=== PATIENT | female | born 1980 | race Caucasian/White ===

== ENCOUNTER 2020-10-24 12:36 | Emergency (ER) | payer OTHER ==
--- OUTSIDE RECORDS SUMMARY | 2020-10-24 12:39 | XMS REPORT | Continuity of Care Document ---
:1980 Author Organization [facility] t Address [address] [place] [address] Care Team Providers Name Role Phone Radha Ireland Attending Clinician Doctor Unassigned, Name Attending Clinician Unavailable Problems This patient has no known problems. Allergies, Adverse Reactions, Alerts This patient has no known allergies or adverse reactions. Medications This patient has no known medications. Procedures This patient has no known procedures. 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
--- NOTE | 2020-10-24 14:26 | ER ---
Nurse's Notes [facility] Name: Lulu Barreto Age: 40 yrs Sex: Female : 1980 Arrival Date: 10/24/2020 Time: 12:40 Bed 27 Private MD: Diagnosis: Urinary tract infection, site not specified;Enlarged lymph nodes Presentation: 10/24 13:17 Chief complaint: Patient states: feels a knot on the inside of her right groin area iw that she noticed yesterday and she has a knot in her left breast but is due for a mammogram tomorrow. Coronavirus screen: At this time, the client does not indicate any symptoms associated with coronavirus-19. Coronavirus screen: fatigue. Ebola Screen: Patient negative for fever greater than or equal to 101.5 degrees Fahrenheit, and additional compatible Ebola Virus Disease symptoms Patient denies exposure to infectious person. Patient denies travel to an Ebola-affected area in the 21 days before illness onset. No symptoms or risks identified at this time. Initial Sepsis Screen: Does the patient meet any 2 criteria? No. Patient's initial sepsis screen is negative. Does the patient have a suspected source of infection? No. Patient's initial sepsis screen is negative. Risk Assessment: Do you want to hurt yourself or someone else? Patient reports no desire to harm self or others. Onset of symptoms was October 23, 2020. 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 - Social history:: Smoking status: Patient denies any tobacco usage or history of. Assessment: 12:56 Reassessment: pt not in lobby when called. iw 13:30 General: Appears in no apparent distress. comfortable, Behavior is calm, cooperative, jd3 appropriate for age, anxious. Pain: Complains of pain in right inguinal area Quality of pain is described as aching, tender. Neuro: Level of Consciousness is awake, alert, obeys commands, Oriented to person, place, time, situation. Cardiovascular: Capillary refill < 3 seconds Patient's skin is warm and dry. Respiratory: Airway is patent Respiratory effort is even, unlabored, Respiratory pattern is regular, symmetrical. GI: No signs and/or symptoms were reported involving the gastrointestinal system. : No signs and/or symptoms were reported regarding the genitourinary system. EENT: No signs and/or symptoms were reported regarding the EENT system. Derm: Skin is intact, Skin is dry, Skin is normal, Skin temperature is warm. Musculoskeletal: Circulation, motion, and sensation intact. Range of motion: intact in all extremities. Vital Signs: 13:17 BP 108 / 62; Pulse 94; Resp 16; Temp 97.9; Pulse Ox 100% on R/A; Weight 58.97 kg; iw Height 5 ft. 2 in. (157.48 cm); 13:17 Body Mass Index 23.78 (58.97 kg, 157.48 cm) ED Course: 12:40 Patient arrived in ED. ds1 12:57 Yeni Wilson, RN is Primary Nurse. aa5 12:58 Benito Sales PA is PHCP. [facility] 12:58 Artis Florence MD is Attending Physician. [facility] 12:58 Artis Florence MD is Attending Physician. [facility] 13:19 Triage completed. iw 13:20 Arm band placed on. iw Administered Medications: No medications were administered Outcome: 14:25 Discharge ordered by MD. [facility] 14:52 Patient left the ED. zb Signatures: Benito Sales PA PA jmm Sanford, Demi ds1 Comfort Bowman RN RN Yeni Wilson, SAMSON DAVIES aa5 Cesario Rivera RN RN jd3 Brown, Zipporah, RN RN zb
--- NOTE | 2020-10-24 14:26 | EDPHYS ---
Physician Documentation [facility] Name: Lulu Barreto Age: 40 yrs Sex: Female : 1980 Arrival Date: 10/24/2020 Time: 12:40 Bed 27 Private MD: ED Physician Artis Florence HPI: 10/24 13:31 This 40 yrs old Female presents to ER via Ambulatory with complaints of Side jmm Pain. 13:31 The patient presents with swelling. Onset: The symptoms/episode began/occurred today. jmm Modifying factors: The symptoms are alleviated by nothing, the symptoms are aggravated by nothing. Associated signs and symptoms: Pertinent negatives: fever, hematuria, urinary frequency, vaginal discharge, vomiting. This is a 40 year old female with no chronic medical conditions that presents to the ED with complaints of swelling to her groin beginning today. Denies abdominal pain, vomiting, diarrhea, vaginal discharge. Patient is concerned this may be a sign of cancer. . 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 - Social history:: Smoking status: Patient denies any tobacco usage or history of. ROS: 13:31 Constitutional: Negative for fever, chills, and weight loss, Cardiovascular: Negative jmm for chest pain, palpitations, and edema, Respiratory: Negative for shortness of breath, cough, wheezing, and pleuritic chest pain. 13:31 Allergy/Immunology: Positive for swelling. 13:31 All other systems are negative. Exam: 13:31 Constitutional: This is a well developed, well nourished patient who is awake, alert, jmm and in no acute distress. Head/Face: atraumatic. Eyes: EOMI, no conjunctival erythema appreciated ENT: Moist Mucus Membranes Neck: Trachea midline, Supple Chest/axilla: Normal chest wall appearance and motion. Cardiovascular: Regular rate and rhythm. No edema appreciated Respiratory: Normal respirations, no respiratory distress appreciated Abdomen/GI: Non distended, soft 13:31 Skin: General appearance color normal MS/ Extremity: Moves all extremities, no obvious deformities appreciated, no edema noted to the lower extremities Neuro: Awake and alert, normal gait Psych: Behavior is normal, Mood is normal, Patient is cooperative and pleasant 13:31 Abdomen/GI: abdomen is non tender to palpation, right groin lymph nodes palpated. Vital Signs: 13:17 BP 108 / 62; Pulse 94; Resp 16; Temp 97.9; Pulse Ox 100% on R/A; Weight 58.97 kg; iw Height 5 ft. 2 in. (157.48 cm); 13:17 Body Mass Index 23.78 (58.97 kg, 157.48 cm) iw MDM: 13:31 Patient medically screened. [facility] 13:31 Data reviewed: vital signs, nurses notes. Counseling: I had a detailed discussion with abhilash the patient and/or guardian regarding: the historical points, exam findings, and any diagnostic results supporting the discharge/admit diagnosis, the need for outpatient follow up, to return to the emergency department if symptoms worsen or persist or if there are any questions or concerns that arise at home. ED course: Patient will be getting a mammogram tomorrow. Patient is given strict return precautions. patient understood and agrees with the plan of care. UTI will be treated. Patient is otherwise given strict return precautions. Patient understood and agrees with the plan of care. . 10/24 14:08 Order name: Urine Dipstick--Ancillary (enter results) 10/24 14:08 Order name: Urine --Ancillary (enter results) 10/24 13:34 Order name: Urine Dipstick-Ancillary (obtain specimen); Complete Time: 14:08 [facility] 10/24 13:34 Order name: Urine Test (obtain specimen); Complete Time: 14:08 [facility] Administered Medications: No medications were administered Disposition: 15:15 Co-signature as Attending Physician, Artis Florence MD. rn Disposition: 10/24/20 14:25 Discharged to Home. Impression: Urinary tract infection, site not specified, Enlarged lymph nodes. - Condition is Stable. - Discharge Instructions: Urinary Tract Infection, Adult, Lymphadenopathy. - Prescriptions for Bactrim DS 800- 160 mg Oral Tablet - take 1 tablet by ORAL route every 12 hours for 10 days; 20 tablet. - Medication Reconciliation Form, Thank You Letter, Antibiotic Education, Prescription Opioid Use form. - Follow up: Private Physician; When: 2 - 3 days; Reason: Recheck today's complaints, Continuance of care, Re-evaluation by your physician. Signatures: Dispatcher [employer] EDBenito Russell PA PA jmm Williams, Irene, RN RN iw Nieto, Roman, MD MD rn Brown, Zipporah, RN RN zb Corrections: (The following items were deleted from the chart) 14:52 14:25 10/24/2020 14:25 Discharged to Home. Impression: Urinary tract infection, site zb not specified; Enlarged lymph nodes. Condition is Stable. Forms are Medication Reconciliation Form, Thank You Letter, Antibiotic Education, Prescription Opioid Use. Follow up: Private Physician; When: 2 - 3 days; Reason: Recheck today's complaints, Continuance of care, Re-evaluation by your physician. rashard
[2020-10-24 15:37] VITALS: BP 108/62; TEMP 97.9; O2SAT 100
[2020-10-24 15:40] LABS: Urine Blood TRACE (NEG); Urine Glucose NEGATIVE (NEG); Urine Protein NEGATIVE (NEG)
== END 2020-10-24 14:52 | disposition home or self-care (01) ==
LOC: ER 12:36
DX: N39.0 Urinary tract infection, site not specified (principal); Z88.0 Allergy status to penicillin
CPT/HCPCS: 81003; 81025; 99281

== ENCOUNTER 2021-02-19 20:35 | Emergency (ER) | payer OTHER ==
--- OUTSIDE RECORDS SUMMARY | 2021-02-19 20:39 | XMS REPORT | Continuity of Care Document ---
:1980 Author Organization [facility] t Address [address] [place] [address] Care Team Providers Name Role Phone Janett Thompson Attending Clinician Doctor Unassigned, Name Attending Clinician Unavailable Marly Bowman DO Attending Clinician Akinsisaranya DCP, C Attending Clinician Problems This patient has no known problems. Allergies, Adverse Reactions, Alerts This patient has no known allergies or adverse reactions. Medications This patient has no known medications. Procedures This patient has no known procedures. Encounters Start End Encounter Admission Attending Care Care Encounter Source Date/Time Date/Time Type Type Clinicians Facility Department ID 2021-01-24 2021-01-24 CYNTHIA Black [id number] 00:16:00 02:29:00 Lois Franklin [id number] [place] [id number] [place] [id number] 2021-01-24 2021-01-24 Orders Doctor WHITT [id number] 00:00:00 00:00:00 Only UnassignedMOISÉS [id number] [place] [id number] 2021-01-23 2021-01-23 Orders Doctor WHITT [id number] 00:00:00 00:00:00 Only Unassigned, MOISÉS [id number] [place] [facility] [id number] 2021-01-03 2021-01-03 Emergency [facility] [id number] 21:27:00 23:45:00 Dedra Franklin [id number] [place] [id number] [place] [id number] 2021-01-02 2021-01-02 Emergency [facility] [id number] 14:10:00 19:43:00 Lois Franklin [id number] [place] [id number] [place] [id number] 2021-01-02 2021-01-02 Orders Doctor PERI [id number] 00:00:00 00:00:00 Only Unassigned, MOISÉS [id number] [place] [facility] [id number] 2020-11-07 2020-11-07 Office [facility] [id number] 14:03:28 14:54:11 Visit 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
--- NOTE | 2021-02-19 23:58 | ER ---
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 Coronavirus screen: Client denies travel out of the [place] in the last 14 days. Ebola Screen: Patient negative for fever greater than or equal to 101.5 degrees Fahrenheit, and additional compatible Ebola Virus Disease symptoms Patient denies exposure to infectious person. Patient denies travel to an Ebola-affected area in the 21 days before illness onset. No symptoms or risks identified at this time. Initial Sepsis Screen: Does the patient meet any 2 criteria? No. Patient's initial sepsis screen is negative. Does the patient have a suspected source of infection? No. Patient's initial sepsis screen is negative. Risk Assessment: Do you want to hurt yourself or someone else? Patient reports no desire to harm self or others. Onset of symptoms was February 19, 2021. 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 - Social history:: Smoking status: Patient denies any tobacco usage or history of. Screenin/29 00:06 Abuse screen: Denies threats or abuse. Denies injuries from another. Nutritional em screening: No deficits noted. Tuberculosis screening: No symptoms or risk factors identified. Fall Risk None identified. Assessment: 00:04 General: Appears in no apparent distress. Pain: Complains of pain in left aspect of em posterior pharynx and right aspect of posterior pharynx. Neuro: No deficits noted. 00:05 Cardiovascular: No deficits noted. Respiratory: Airway is patent. GI: No signs and/or em symptoms were reported involving the gastrointestinal system. : No signs and/or symptoms were reported regarding the genitourinary system. EENT: Reports pain when swallowing. Derm: No deficits noted. Musculoskeletal: No deficits noted. Vital Signs: 02/19 20:57 BP 118 / 71; Pulse 111; Resp 16; Temp 98.2; Pulse Ox 99% on R/A; Weight 63.5 kg; Height em 5 ft. 2 in. (157.48 cm); 20:57 Body Mass Index 25.61 (63.50 kg, 157.48 cm) em ED Course: 20:38 Patient arrived in ED. cf2 20:59 Triage completed. em 20:59 Arm band placed on. em 21:04 Strep swab sent to lab. em 22:25 Alistair Reed RN is Primary Nurse. em 22:38 Pérez Olivera MD is Attending Physician. pkl 23:42 Todd Brown NP is PHCP. pm1 23:42 Pérez Olivera MD is Attending Physician. pm1 Administered Medications: 23:59 Drug: [place] (HYDROcodone-acetaminophen) 10 mg-325 mg 1 tabs Route: PO; em 02/20 00:07 Follow up: Response: No adverse reaction; Medication administered at discharge. em Outcome: 02/19 23:58 Discharge ordered by . pm1 02/20 00:08 Patient left the ED. 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
--- NOTE | 2021-02-19 23:59 | EDPHYS ---
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 - Social history:: Smoking status: Patient denies any tobacco usage or history of. Vital Signs: 20:57 BP 118 / 71; Pulse 111; Resp 16; Temp 98.2; Pulse Ox 99% on R/A; Weight 63.5 kg; Height em 5 ft. 2 in. (157.48 cm); 20:57 Body Mass Index 25.61 (63.50 kg, 157.48 cm) em MDM: 23:57 Patient medically screened. pm1 23:57 Data reviewed: vital signs. Data interpreted: Pulse oximetry: on room air is 99 %. pm1 Interpretation: normal. Counseling: I had a detailed discussion with the patient and/or guardian regarding: the historical points, exam findings, and any diagnostic results supporting the discharge/admit diagnosis, the need for outpatient follow up, for definitive care, a dentist, to return to the emergency department if symptoms worsen or persist or if there are any questions or concerns that arise at home. 02/19 21:00 Order name: Strep; Complete Time: 23:42 em 02/19 21:27 Order name: Throat Culture EDMS Administered Medications: 23:59 Drug: [place] (HYDROcodone-acetaminophen) 10 mg-325 mg 1 tabs Route: PO; em 02/20 00:07 Follow up: Response: No adverse reaction; Medication administered at discharge. em Disposition: 02/19/21 23:58 Discharged to Home. Impression: Dental caries, Acute pharyngitis. - Condition is Stable. - Discharge Instructions: Dental Caries, Adult, Pharyngitis. - Prescriptions for Clindamycin HCl 300 mg Oral Capsule - take 1 capsule by ORAL route every 6 hours for 10 days; 40 capsule. Diclofenac Sodium 75 mg Oral Tablet, Delayed Release (E.C.) - take 1 tablet by ORAL route 2 times per day As needed; 30 tablet. - Medication Reconciliation Form, Thank You Letter, Antibiotic Education, Prescription Opioid Use form. - Follow up: Emergency Department; When: As needed; Reason: Worsening of condition. Follow up: Private Physician; When: 2 - 3 days; Reason: Recheck today's complaints, Continuance of care, Re-evaluation by your physician. - Problem is new. - Symptoms have improved. Addendum: 08:14 Co-signature as Attending Physician, Pérez Olivera MD. p kl 14:13 Addendum: HPI: This 40 year old female presents to the ER with complaints of sore p m1 throat and dental pain. The patient presents with pain to lower molars that is acute, sore throat. Onset: 2 days ago. Associated signs and symptoms: pertinet positives: fever. pertinet negatives: difficulty swallowing or eating. Modifying factors: alleviated by over the counter medications. Severity of symptoms: the symptoms are improved with Tylenol. The patient has experience prior symptoms. Patient with pain and dental caries to lower molars for many months. 14:18 Addendum: ROS: Constitutional: positive for fever, negative for poor po intake. ENT: p m1 positive for sore throat. negative for earache. Cardiovascular: negative for chest pain, palpitations, and edema. Respiratory: Negative for shortness of breath, cough. Back: Negative for injury and pain, Skin: negative for injury, rash, and discoloration. Neuro: negative for headache, weakness, numbness, and tingling. Abdomen/GI: negative for abdominal pain and constipation. Negative for nausea, vomiting, and diarrhea. All other systems are negative. 14:19 Addendum: Exam: Constitutional: This is a well developed, well nourished patient who is p m1 awake, alert, and in no acute distress. Head/Face: Normocephalic, atraumatic. Neck: Supple, FROM without pain. Positive for right anterior cervical chain lymphadenopathy. ENT: Negative for trismus, gum swelling. Positive for moderate dental caries to 2nd and 3rd lower molars bilaterally. Cardiovascular: RRR, no pulse deficits. Respiratory: No respiratory distress, shortness of breath. CTA bilaterally. Musculoskeletal/extremity: extremities: FROM, neurovascular status intact. Skin: Appearance: warm, ric intact, color wnls. Neuro: exam negative for acute changes. Orientation is normal, Motor; moves all fours. Signatures: Dispatcher [employer] Pérez Berumen MD MD pkl Munoz, Edgar, RN RN Todd Shepherd, FITTINGS TIGHTENER FITTINGS TIGHTENER pm1 Corrections: (The following items were deleted from the chart) 00:08 02/19 23:58 02/19/2021 23:58 Discharged to Home. Impression: Dental caries; Acute em pharyngitis. Condition is Stable. Forms are Medication Reconciliation Form, Thank You Letter, Antibiotic Education, Prescription Opioid Use. Follow up: Emergency Department; When: As needed; Reason: Worsening of condition. Follow up: Private Physician; When: 2 - 3 days; Reason: Recheck today's complaints, Continuance of care, Re-evaluation by your physician. Problem is new. Symptoms have improved. pm1
[2021-02-20] MEDS ORDERED: HYDROCODONE/APAP 10/325 TAB ONE (00:20)
[2021-02-20 00:26] VITALS: BP 118/71; TEMP 98.2; O2SAT 99
== END 2021-02-20 00:08 | disposition home or self-care (01) ==
LOC: ER 20:35
DX: K02.9 Dental caries, unspecified (principal); Z88.0 Allergy status to penicillin
CPT/HCPCS: 87070; 87081; 99283

== ENCOUNTER 2022-02-06 22:14 | Emergency (ER) | payer OTHER ==
--- OUTSIDE RECORDS SUMMARY | 2022-02-06 22:20 | XMS REPORT | Continuity of Care Document ---
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 [facility] Body weight 2021-05-03 18:23:00 64.184 kg [facility] BMI 2021-05-03 18:23:00 25.07 kg/m2 [facility] Systolic blood 2021-03-26 04:05:00 133 mm[Hg] Univer sity of pressure [facility] Diastolic blood 2021-03-26 04:05:00 80 mm[Hg] Unive rsity of pressure [facility] Heart rate 2021-03-26 04:05:00 101 /min [facility] Body temperature 2021-03-26 04:05:00 37.28 Chanel Univ ersity of [facility] Respiratory rate 2021-03-26 04:05:00 20 /min Univ ersity of [facility] Body weight 2021-03-26 04:05:00 61.236 kg [facility] BMI 2021-03-26 04:05:00 23.91 kg/m2 [facility] Oxygen saturation in 2021-03-26 04:05:00 100 /min University of Arterial blood by [facility] Pulse oximetry Branch Systolic blood 2021-01-24 07:00:00 105 mm[Hg] Univer sity of pressure [facility] Diastolic blood 2021-01-24 07:00:00 60 mm[Hg] Unive rsity of pressure [facility] Heart rate 2021-01-24 07:00:00 98 /min [facility] Body temperature 2021-01-24 07:00:00 37.44 Chanel Univ ers[facility] Respiratory rate 2021-01-24 07:00:00 14 /min Univ ersity of [facility] Oxygen saturation in 2021-01-24 07:00:00 97 /min University of Arterial blood by [place] [facility] Pulse oximetry Branch Body height 2021-01-24 05:11:00 160 cm [facility] Body weight 2021-01-24 05:11:00 57.607 kg [facility] BMI 2021-01-24 05:11:00 22.50 kg/m2 [facility] Systolic blood 2021-01-24 07:00:00 105 mm[Hg] Univer sity of pressure [facility] Diastolic blood 2021-01-24 07:00:00 60 mm[Hg] Unive rsity of pressure [facility] Heart rate 2021-01-24 07:00:00 98 /min [facility] Body temperature 2021-01-24 07:00:00 37.44 Chanel Univ ersity of [facility] Respiratory rate 2021-01-24 07:00:00 14 /min Univ ersity of [facility] Oxygen saturation in 2021-01-24 07:00:00 97 /min University of Arterial blood by [place] [facility] marcus Pulse oximetry Branch Body height 2021-01-24 05:11:00 160 cm [facility] Body weight 2021-01-24 05:11:00 57.607 kg [facility] BMI 2021-01-24 05:11:00 22.50 kg/m2 [facility] Systolic blood 2021-01-04 04:38:00 105 mm[Hg] Univer sity of pressure [facility] Diastolic blood 2021-01-04 04:38:00 90 mm[Hg] Unive rsity of pressure [facility] Heart rate 2021-01-04 04:38:00 88 /min [facility] Respiratory rate 2021-01-04 04:38:00 25 /min Univ ersity of [facility] Oxygen saturation in 2021-01-04 04:38:00 100 /min University of Arterial blood by [place] [facility] marcus P[facility] oxim[facility] Branch Body temperature 2021-01-04 02:30:00 35.5 Chanel Univ ersity of [facility] Body weight 2021-01-04 02:25:00 58.968 kg Universi [facility] BMI 2021-01-04 02:25:00 23.78 kg/m2 [facility] Systolic blood 2021-01-04 04:38:00 105 mm[Hg] Univer sity of pressure [facility] Diastolic blood 2021-01-04 04:38:00 90 mm[Hg] Unive rsity of pressure [facility] Heart rate 2021-01-04 04:38:00 88 /min [facility]i [facility] Respiratory rate 2021-01-04 04:38:00 25 /min Univ ersity of [facility] Oxygen saturation in 2021-01-04 04:38:00 100 /min University of Arterial blood by [facility] Pulse oximetry Branch Body temperature 2021-01-04 02:30:00 35.5 Chanel Univ ersity of [facility] Body weight 2021-01-04 02:25:00 58.968 kg [facility]i [facility] BMI 2021-01-04 02:25:00 23.78 kg/m2 [facility] Systolic blood 2021-01-03 00:40:08 116 mm[Hg] Univer sity of pressure [facility] Diastolic blood 2021-01-03 00:40:08 87 mm[Hg] Unive rsity of pressure [facility] Heart rate 2021-01-03 00:40:08 95 /min [facility] Respiratory rate 2021-01-03 00:40:08 18 /min Univ ersity [facility] Oxygen saturation in 2021-01-03 00:40:08 97 /min University of Arterial blood by [facility] Pulse oximetry Branch Body temperature 2021-01-02 19:08:00 37.06 Chanel Univ ersity of [facility] Body weight 2021-01-02 19:08:00 58.968 kg Universi ty [facility] BMI 2021-01-02 19:08:00 23.78 kg/m2 [facility] Systolic blood 2021-01-03 00:40:08 116 mm[Hg] Univer sity of pressure [facility] Diastolic blood 2021-01-03 00:40:08 87 mm[Hg] Unive rsity of pressure [facility] Heart rate 2021-01-03 00:40:08 95 /min Universi ty of [facility] Respiratory rate 2021-01-03 00:40:08 18 /min Univ ersity of [facility] Oxygen saturation in 2021-01-03 00:40:08 97 /min University of Arterial blood by [facility] Pulse oximetry Branch Body temperature 2021-01-02 19:08:00 37.06 Chanel Univ ersity of [facility] Body weight 2021-01-02 19:08:00 58.968 kg Universi ty [facility] BMI 2021-01-02 19:08:00 23.78 kg/m2 [facility] Systolic blood 2020-11-07 19:20:00 113 mm[Hg] Univer sity of pressure [facility] Diastolic blood 2020-11-07 19:20:00 78 mm[Hg] Unive rsity of pressure [facility] Heart rate 2020-11-07 19:20:00 97 /min [facility] [place] [facility] [place] Body temperature 2020-11-07 19:20:00 36.78 Chanel Univ ersity of [facility] Respiratory rate 2020-11-07 19:20:00 16 /min Univ ersity of [facility] Body height 2020-11-07 19:20:00 157.5 cm Universi [facility] Body weight 2020-11-07 19:20:00 60.499 kg [facility] BMI 2020-11-07 19:20:00 24.39 kg/m2 [facility] Systolic blood 2020-11-07 19:20:00 113 mm[Hg] Univer sity of pressure [facility] Diastolic blood 2020-11-07 19:20:00 78 mm[Hg] Unive rsity of pressure [facility] Heart rate 2020-11-07 19:20:00 97 /min [facility]i [facility] Body temperature 2020-11-07 19:20:00 36.78 Chanel Univ ersity of [facility] Respiratory rate 2020-11-07 19:20:00 16 /min Univ ersity of [facility] Body height 2020-11-07 19:20:00 157.5 cm [facility]i [facility] Body weight 2020-11-07 19:20:00 60.499 kg [facility] BMI 2020-11-07 19:20:00 24.39 kg/m2 [facility] Systolic blood 2020-10-26 20:36:00 107 mm[Hg] Univer sity of pressure [facility] Diastolic blood 2020-10-26 20:36:00 78 mm[Hg] Unive rsity of pressure [facility] Heart rate 2020-10-26 20:36:00 94 /min Universi ty [facility] Body temperature 2020-10-26 20:36:00 36.61 Chanel Univ ersity of [facility] Respiratory rate 2020-10-26 20:36:00 16 /min Univ ersity of [facility] Body height 2020-10-26 20:36:00 157.5 cm [facility]i [facility] Body weight 2020-10-26 20:36:00 59.932 kg [facility]i [facility] BMI 2020-10-26 20:36:00 24.17 kg/m2 [facility] Systolic blood 2020-10-20 14:33:00 101 mm[Hg] Univer sity of pressure [facility] Diastolic blood 2020-10-20 14:33:00 73 mm[Hg] Unive rsity of pressure [facility] Heart rate 2020-10-20 14:33:00 97 /min [facility]i ty [facility] Body temperature 2020-10-20 14:33:00 36.78 Chanel Univ ersity of [facility] Respiratory rate 2020-10-20 14:33:00 16 /min Univ ersity of [facility] Body height 2020-10-20 14:33:00 157.5 cm [facility] Body weight 2020-10-20 14:33:00 59.109 kg [facility] BMI 2020-10-20 14:33:00 23.83 kg/m2 Universi ty [facility] Systolic blood 2019-11-11 15:10:00 100 mm[Hg] Univer sity of pressure [facility] Diastolic blood 2019-11-11 15:10:00 68 mm[Hg] Unive rsity of pressure [facility] Heart rate 2019-11-11 15:10:00 87 /min Universi [facility] Body temperature 2019-11-11 15:10:00 37.11 Chanel [facility] Body height 2019-11-11 15:10:00 157.5 cm Universi [facility] Body weight 2019-11-11 15:10:00 63.05 kg [facility] BMI 2019-11-11 15:10:00 25.42 kg/m2 [facility] Oxygen saturation in 2019-11-11 15:10:00 99 /min [facility] blood by [facility] Pulse oximetry Branch Procedures Procedure Date / Time Performing Clinician Source Performed URINALYSIS 2021-09-27 18:59:00 Angélica Pelayo [facility] RAPID STREP SCREEN FOR 2021-09-27 18:04:00 Angélica Pelayo [facility] GROUP A [facility] RAPID INFLUENZA A/B 2021-09-27 18:04:00 Angélica Pelayo [facility] COVID-19 (ID NOW RAPID 2021-09-27 18:04:00 Angélica Pelayo [facility] TESTING) [facility] NOTICE OF PRIVACY 2021-09-27 17:11:49 Doctor Unassigned, [facility] PRACTICES [place] [facility] CONSENT/REFUSAL FOR 2021-09-27 17:10:54 Doctor Unassigned, [facility] DIAGNOSIS AND TREATMENT [place] [facility] [place] GLYCOSYLATED HEMOGLOBIN 2021-05-03 19:37:00 Terri Mendez [facility] (A1C) [facility] HIV 1/2 AG-AB WITH REFLEX 2021-05-03 19:37:00 Terri Mendez [facility] GALV ONLY - SYPHILIS 2021-05-03 19:37:00 [facility] CONSENT/REFUSAL FOR 2021-03-26 03:55:57 Doctor Endy [facility] DIAGNOSIS AND TREATMENT [place] [facility] [place] RAPID STREP SCREEN FOR 2021-01-24 06:19:00 Lois Centeno [facility] GROUP A Medical Branch POCT TEST 2021-01-24 06:19:00 Lois Centeno [facility] Medical Branch COVID-19 (ID NOW RAPID 2021-01-24 06:19:00 Lois Centeno [facility] TESTING) Medical Branch URINALYSIS 2021-01-24 06:16:00 Lois Centeno [facility] COMP. METABOLIC PANEL 2021-01-24 06:15:00 Lois Centeno [facility] ([id number]) Medical Branch CBC WITH DIFF 2021-01-24 06:15:00 Lois Centeno [facility] EMERGENCY SERVICES 2021-01-24 05:01:00 Doctor Endy, [facility] AGREEMENTS AND [place] [facility] [place] AUTHORIZATIONS NOTICE OF PRIVACY 2021-01-24 04:58:49 Doctor Endy, [facility] PRACTICES [place] [facility] [place] CONSENT/REFUSAL FOR 2021-01-24 04:58:30 Doctor Endy [facility] DIAGNOSIS AND TREATMENT [place] [facility] COVID-19 (ID NOW RAPID 2021-01-04 03:00:00 Dedra Felix Un [facility] TESTING) Medical Branch URINALYSIS 2021-01-04 02:48:00 Dedra Felix [facility] [place] LIPASE 2021-01-04 02:47:00 Dedra Felix [facility] COMP. METABOLIC PANEL 2021-01-04 02:47:00 Dedra Felix [facility] ([id number]) Medical Branch CBC WITH DIFF 2021-01-04 02:47:00 Dedra Felix [facility] POCT TEST 2021-01-04 02:46:00 Dedra Felix [facility] [place] COMP. METABOLIC PANEL 2021-01-02 22:23:00 Lois Centeno [facility] ([id number]) Medical Branch EBV-MONONUCLEOSIS SCREEN 2021-01-02 22:23:[address] [facility] CBC WITH DIFF 2021-01-02 21:27:00 Lois Centeno [facility] POCT GLUCOSE (AUTOMATED) 2021-01-02 20:10:[address] [facility] RAPID STREP SCREEN FOR 2021-01-02 20:06:00 Lois Centeno [facility] GROUP A Medical Branch CONSENT/REFUSAL FOR 2021-01-02 18:51:16 Doctor Unaeleuterio, [facility] DIAGNOSIS AND TREATMENT [place] [facility] [place] CONSENT/REFUSAL FOR 2020-10-26 20:26:06 Doctor Unaeleuterio, [facility] DIAGNOSIS AND TREATMENT [place] [facility] [place] ASSIGNMENT OF BENEFITS 2020-10-26 20:25:54 Doctor Endy, [facility] Name [facility] [place] AUTHORIZATION TO RELEASE 2020-10-20 06:01:00 Doctor Endy, [facility] PHI TO [facility] Name [facility] POCT GRP A STREP 2019-11-11 16:15:00 Any Henriquez [facility] (MOLECULAR) [facility] POCT FLU A AND B 2019-11-11 15:37:00 Any Henriquez [facility] (MOLECULAR) [facility] Encounters Start End Encounter Admission Attending Care Care Encounter Source Date/Time Date/Time Type Type Clinicians Facility Department ID 2021-06-25 Emergency [facility] [id number] Univers 12:18:21 ity [facility] 2021-06-24 Emergency [facility] [id number] Univers 22:33:05 ity [facility] 2021-06-24 Emergency [facility] [id number] Univers 18:47:40 ity [facility] 2021-06-24 Emergency [facility] [id number] [facility] 2021-12-21 Outpatient R [facility] [id number] Univers 20:20:00 20:20:00 [id number] ity [facility] 2021-12-21 2021-12-21 Outpatient R [facility] [id number] Univers 20:20:00 20:20:00 ity of [facility] 2021-12-20 2021-12-20 Outpatient [facility] [id number] Univers 18:40:00 18:40:00 [id number] ity of [facility] 2021-10-23 2021-10-23 Outpatient R ANDREA, [facility] [id number] Univers 13:15:00 13:15:00 TERRI [id number] ity o f [facility] 2021-09-27 2021-09-27 Emergency X [facility] ERT [id number] Univers 11:15:00 15:02:00 ANGÉLICA ity [facility] 2021-09-27 2021-09-27 Emergency [facility] [id number] Univers 11:15:00 15:02:00 Angélica Hernandez MARYKNOLL [id number] ity of [place] [id number] [facility] [id number] [facility] 084 [place] 2021-09-27 2021-09-27 Orders Doctor PERI [id number] Univers 00:00:00 00:00:00 Only Unassigned, MOISÉS [id number] ity of [place] [facility] [id number] Elio as [phone] [facility] 009 [place] 2021-05-03 2021-05-03 Office [facility] [id number] Univers 13:05:08 14:38:12 Visit Terri Garcia BACK WEDGER [id number] ity of [facility] [id number] Elio as MATERNAL [id number] Med ical & CHILD [address] [place] [address] 2021-05-03 2021-05-03 Outpatient R ANDREA, [facility] [id number] Univers 13:15:00 13:15:00 TERRI [id number] ity o f [facility] 2021-05-03 2021-05-03 [facility] [id number] Univers 13:15:00 13:15:00 TERRI ity o f [facility] 2021-04-03 2021-04-03 Telephone Amber Parismanuel [id number] Univers 00:00:00 00:00:00 , Kitty Renee [id number] ity of [id number] [id number] [address] 2021-03-25 2021-03-25 Emergency [facility] [id number] [facility] 23:08:00 23:46:00 Angélica [place] [id number] ity of [id number] [place] [id number] [address] 2021-03-08 2021-03-08 Telephone [facility] [id number] Univers 00:00:00 00:00:00 Terri Garcia BACK WEDGER [id number] ity of [facility] [id number] Elio as MATERNAL [id number] [facility] ical & CHILD [address] [place] [address] 2021-03-02 2021-03-02 Telephone [facility] [id number] Univers 00:00:00 00:00:00 Inez Manuel BACK WEDGER [id number] it y of [facility] [id number] Elio as MATERNAL [id number] [facility] & CHILD [address] [place] [address] 2021-02-07 2021-02-07 Outpatient R ANDREA, [facility] [id number] Univers 13:15:00 13:15:00 TERRI [id number] ity o f [facility] 2021-02-07 2021-02-07 Outpatient R AKINIRMA, [facility] [id number] Univers 13:15:00 13:15:00 TERRI ity o f [facility] 2021-01-24 2021-01-24 Emergency [facility] [id number] 00:16:00 02:29:00 Lois [place] [id number] [place] [id number] [place] [id number] [id number] 2021-01-24 2021-01-24 Emergency CYNTHIA Centeno [id number] Univers 00:16:00 02:29:00 Lois Rowland Noemi [id number] i ty of [place] [id number] [facility] [phone] [place] 077984 Branch 2021-01-24 2021-01-24 Orders Doctor WHITT 1.2.840.114 [id number] 00:00:00 00:00:00 Only Unassigned, MOISÉS [id number] [place] [facility] [id number] 2021-01-24 2021-01-24 Orders Doctor WHITT 1.2.840.114 [id number] Univers 00:00:00 00:00:00 Only Unassigned, MOISÉS [id number] ity of [place] [facility] [id number] Elio as [id number] [place] [address] Branch 2021-01-23 2021-01-23 Orders Doctor WHITT 1.2.840.114 [id number] Univers 00:00:00 00:00:00 Only Unassigned, MOISÉS [id number] ity of [place] [facility] [id number] Elio as [id number] [address] 2021-01-23 2021-01-23 Orders Doctor WHITT 1.2.840.114 [id number] 00:00:00 00:00:00 Only Unassigned, MOISÉS [id number] [place] [facility] [id number] [id number] [id number] 2021-01-03 2021-01-03 Emergency Elvira ALANCA 1.2.840.114 [id number] [facility] 21:27:00 23:45:00 Dedra Luke Noemi [id number] ity of [place] [id number] [facility] [id number] [place] 077984 Branch 2021-01-03 2021-01-03 Emergency [facility] 1.2.840.114 [id number] 21:27:00 23:45:00 Dedra Luke Noemi [id number] [place] [id number] [place] [id number] [facility] 2021-01-02 2021-01-02 Emergency [facility] [id number] Univers 14:10:00 19:43:00 Lois Rowland Noemi [id number] i ty of [id number] [place] [id number] [facility] 084 [place] 2021-01-02 2021-01-02 Emergency [facility] [id number] 14:10:00 19:43:00 Lois Rowland Noemi [id number] [place] [id number] [place] [id number] [facility] 2021-01-02 2021-01-02 Orders Doctor PERI 1.2.840.114 [id number] Univers 00:00:00 00:00:00 Only Unassigned, MOISÉS [id number] ity of [place] [facility] [id number] Elio as [phone] [facility] 009 Branch 2021-01-02 2021-01-02 Orders Doctor PERI 1.2.840.114 [id number] 00:00:00 00:00:00 Only Unassigned, MOISÉS [id number] [place] [facility] [id number] 2020-11-17 2020-11-17 Outpatient R AKINSIPE, [facility] [id number] Univers 14:30:00 14:30:00 TERRI [id number] clarice perera [facility] 2020-11-17 2020-11-17 Outpatient R AKINSIPE, [facility] [id number] Univers 14:30:00 14:30:00 TERRI perera [facility] 2020-11-07 2020-11-07 [facility] [id number] Univers 14:03:28 14:54:11 Visit Terri Garcia BACK WEDGER [id number] ity of REGIONAL [id number] Elio as MATERNAL [id number] Med [facility] & CHILD [address] [place] [address] 2020-11-07 2020-11-07 Office [facility] [id number] 14:03:28 14:54:11 Visit Terri Garcia BACK [place] [id number] REGIONAL [id number] MATERNAL [id number] & CHILD [address] [place] [address] 2020-11-07 2020-11-07 Outpatient R ANDREA, [facility] [id number] Univers 14:00:00 14:00:00 TERRI [id number] ity o [facility] 2020-11-07 2020-11-07 Out[facility] [id number] Univers 14:00:00 14:00:00 TERRI ity o [facility] 2020-11-07 2020-11-07 [facility] [id number] Univers 14:00:00 14:00:00 TERRI ity o [facility] 2020-11-02 2020-11-02 Outpatient R [facility] [id number] Univers 10:00:00 10:00:00 [id number] [facility] 2020-11-02 2020-11-02 Outpatient R [facility] [id number] Univers 10:00:00 10:00:00 [facility] 2020-11-02 2020-11-02 Outpatient R DESTINEY, [facility] [id number] Univers 10:00:00 10:00:00 VINCENZOHARDIKA ity o [facility] 2020-10-27 2020-10-27 Telephone [facility] 1.2.840.114 [id number] Univers 00:00:00 00:00:00 Inez Langston [place]EDGER [id number] it y of REGIONAL [id number] Elio as MATERNAL [id number] Med [facility] & CHILD [address] [place] [address] 2020-10-26 2020-10-26 Outpatient R ELVIRA, [facility] [id number] Univers 15:30:00 15:30:00 INEZ oneil [facility] 2020-10-26 2020-10-26 Outpatient Darby FELIX [facility] [id number] Univers 15:30:00 15:30:00 INEZ oneil [facility] 2020-10-26 2020-10-26 Office [facility] [id number] Univers 14:29:31 14:57:36 Visit Inez Manuel BACK WEDGER 350.1.13.10 it y of REGIONAL 4.2.7.2.686 Elio as MATERNAL [phone] Med ical & CHILD [address] [place] [address] 2020-10-26 2020-10-26 Outpatient Darby FELIX [facility] [id number] 0P-20 Univers 08:00:00 08:00:00 INEZ [id number] [facility] 2020-10-26 2020-10-26 Orders Doctor PERI 1.2.840.114 [id number] Univers 00:00:00 00:00:00 Only Unassigned, MOISÉS 350.1.13.10 ity of [place] [facility] 4.2.7.2.686 Elio as [phone] [address] 2020-10-25 2020-10-25 [facility] 1.2.840.114 [id number] Univers 06:30:53 23:59:00 Encounter Terri Garcia SPECIALTY 350.1.13.10 ity [place] [phone] Fl [address] 2020-10-25 2020-10-25 Outpatient R [facility] [id number] Univers 00:00:00 23:59:00 TERRI oneil o [facility] 2020-10-25 2020-10-25 Outpatient R [facility] [id number] 0P-20 Univers 14:30:00 14:30:00 TERRI [id number] anastaciay o f [facility] 2020-10-25 2020-10-25 Outpatient R [facility] [id number] Univers 00:00:00 00:00:00 TERRI ity o f [facility] 2020-10-20 2020-10-20 Outpatient R ANDREA, [facility] [id number] 0P-20 Univers 14:30:00 14:30:00 TERRI [id number] ity o f [facility] 2020-10-20 2020-10-20 Outpatient R ANDREA, [facility] [id number] Univers 14:30:00 14:30:00 TERRI galavizy o f [facility] 2020-10-20 2020-10-20 Office [facility] [id number] Univers 08:18:28 09:27:15 Visit Terri Garcia BACK WEDGER 350.1.13.10 ity of REGIONAL 4.2.7.2.686 [place]io as MATERNAL [phone] [facility] ical & CHILD [address] [place] [address] 2020-10-20 2020-10-20 Orders Doctor PERI 1.2.840.114 [id number] Univers 00:00:00 00:00:00 Only Unassigned, MOISÉS 350.1.13.10 ity of [place] [facility] 4.2.7.2.686 Elio as [phone] [address] 2020-10-16 2020-10-16 Telephone Pcp, [facility] [id number] Univers 00:00:00 00:00:00 Patient BACK WEDGER 350.1.13.10 it y of Does Not [facility] [place].2.[place] A MATERNAL [phone] [facility] ical & CHILD [address] [place] [address] 2019-11-16 2019-11-16 Telephone Martinez, [facility] [id number] Univers 00:00:00 00:00:00 Any A Health 350.1.13.10 i ty of [place] 4.2.7.2.686 Elio as Professio [phone] Fl dical [facility] [address] 2019-11-16 2019-11-16 Telephone Pob1, Acute [facility] 1.2.840.114 [id number] Univers 00:00:00 00:00:00 [facility] 350.1.13.10 ity of [place] 4.2.7.2.686 Elio as Professio [phone] Fl dical nal [address] 2019-11-11 2019-11-11 Office Pob1, Acute Care [facility] 1. 2.840.114 [id number] Univers 09:53:53 11:56:02 Visit Any Henriquez [facility] 350.1.13.10 ity of [place] 4.2.7.2.686 Elio as Professio [phone] [facility] [address] [facility] One 2019-11-11 2019-11-11 Outpatient R [facility] [id number] -[id number] Univers 09:20:00 09:20:00 [id number] [facility] 2019-11-11 2019-11-11 Outpatient R [facility] [id number] Univers 09:20:00 09:20:00 [facility] 2019-10-18 2019-10-18 Outpatient R ADUM, [facility] [id number] -[id number] Univers 14:00:00 14:00:00 LAURA [id number] [facility] 2019-10-18 2019-10-18 Outpatient R ADUM, [facility] [id number] Univers 14:00:00 14:00:00 [facility] Results Test Description Test Time Test Comments Results Result Comments Source GALV ONLY - SYPHILIS IGG/IGM 2021-05-04 15:11:39 Test Item Value Reference Range Interpretation Comme nts Syphilis IgG/IgM (test code = Non-reactive Non-reactive 52970-8) JADEN (test code = JADEN) Non-reactive - No serologic evidence of T. pallidum infection. Cannot exclude incubating or early syphilis. Submit a second specimen in 2-4 weeks if syphilis is clinically suspected. Equivocal - Further testing to follow. Reactive - Further testing to follow. Lab Interpretation (test code = Normal 37728-4) [facility] [place] [id number] 15:11:39 Test Item Value Reference Range Interpretation Comments Syphilis IgG/IgM (test Non-reactive Non-reactive code = 33190-2) JADEN (test code = JADEN) Non-reactive - No serologic evidence of T. pallidum infection. Cannot exclude incubating or early syphilis. Submit a second specimen in 2-4 weeks if syphilis is clinically suspected. Equivocal - Further testing to follow. Reactive - Further testing to follow. Lab Interpretation (test Normal code = 10101-8) [facility] [place] [id number] 15:11:39 Test Item Value Reference Range Interpretation Comments Syphilis IgG/IgM (test Non-reactive Non-reactive code = 24462-3) JAEDN (test code = JADEN) Non-reactive - No serologic evidence of T. pallidum infection. Cannot exclude incubating or early syphilis. Submit a second specimen in 2-4 weeks if syphilis is clinically suspected. Equivocal - Further testing to follow. Reactive - Further testing to follow. Lab Interpretation (test Normal code = 25023-5) [facility] HEMOGLOBIN (A1C)2021-05-04 04:51:59 Test Item Value Reference Range Interpretation Comments HGB A1C (test code = 4.8 % 4.0-5.7 4548-4) JADEN (test code = JADEN) Reference RangesNormal: <5.7%Prediabetes: 5.7 - 6.4%Diabetes: > 6.5% Lab Interpretation (test Normal code = 15453-4) [facility] (A1C)2021-05-04 04:51:59 Test Item Value Reference Range Interpretation Comments HGB A1C (test code = 4.8 % 4.0-5.7 4548-4) JADEN (test code = JADEN) Reference RangesNormal: <5.7%Prediabetes: 5.7 - 6.4%Diabetes: > 6.5% Lab Interpretation (test Normal code = 04119-3) [facility] (A1C)2021-05-04 04:51:59 Test Item Value Reference Range Interpretation Comments HGB A1C (test code = 4.8 % 4.0-5.7 4548-4) JADEN (test code = JADEN) Reference RangesNormal: <5.7%Prediabetes: 5.7 - 6.4%Diabetes: > 6.5% Lab Interpretation (test Normal code = 76752-3) [facility] 1/2 AG-AB WITH [id number] 04:25:40 Test Item Value Reference Range Interpretation Comments HIV Negative Negative Semi-quantitative (test code = 43948-7) JADEN (test code = Non-reactive for HIV-1 JADEN) antigen and HIV-1/HIV-2 antibodies. ?No laboratory evidence of HIV infection. ?Repeat in 2-4 weeks if acute HIV infection is suspected. [facility] 1/2 AG-AB WITH [id number] 04:25:40 Test Item Value Reference Range Interpretation Comments HIV Negative Negative Semi-quantitative (test code = 60634-1) JADEN (test code = Non-reactive for HIV-1 JADEN) antigen and HIV-1/HIV-2 antibodies. ?No laboratory evidence of HIV infection. ?Repeat in 2-4 weeks if acute HIV infection is suspected. [facility] 1/2 AG-AB WITH [id number] 04:25:40 Test Item Value Reference Range Interpretation Comments HIV Negative Negative Semi-quantitative (test code = 45652-6) JADEN (test code = Non-reactive for HIV-1 JADEN) antigen and HIV-1/HIV-2 antibodies. ?No laboratory evidence of HIV infection. ?Repeat in 2-4 weeks if acute HIV infection is suspected. [facility] [id number] 06:47:15 Test Item Value Reference Range Interpretation Comments Streptococcus pyogenes (group A) Negative Negative antigen (test code = 38761-8) Lab Interpretation (test code = Normal 83627-8) [facility]2021-06-02 06:45:34 Test Item Value Reference Range Interpretation Comments APPEARANCE (test code = Hazy Clear A 9393212989) COLOR (test code = Yellow Yellow 3694519221) PH (test code = 4.8-8.0 2430396276) SP GRAVITY (test code = 1.003-1.030 6082343979) GLU U QUAL (test code = Normal Normal 7411805463) BLOOD (test code = Negative Negative 6812326407) KETONES (test code = Negative Negative 7465480345) PROTEIN (test code = Negative Negative 2887-8) UROBILIN (test code = Normal Normal 2713288550) BILIRUBIN (test code = Negative Negative 5187004224) NITRITE (test code = Negative Negative 8167055688) LEUK RHODA (test code = 75/uL Negative A 9255275110) RBC/HPF (test code = See_Comment H [Autom ated message] 8280437242) The system [employer] generated this result transmitted ref erence range: 0 - 3 HP F. The reference range was not used to int erpret this result as normal/abnormal . WBC/HPF (test code = See_Comment H [Autom ated message] 1605118476) The system [employer] generated this result transmitted ref erence range: 0 - 5 HP F. The reference range was not used to int erpret this result as normal/abnormal . BACTERIA (test code = Many Negative A 4737430577) MUCOUS (test code = Slight Negative LPF A 0014391105) SQ EPITH (test code = HPF 4571967577) TRANS EPI (test code = <1 See_Comment [Aut omated message] 5161132846) The system [employer] generated this result transmitted ref erence range: <=1 HPF. The reference range was not used to int erpret this result as normal/abnormal . Lab Interpretation (test Abnormal code = 30756-5) [facility] (ID NOW RAPID TESTING)2021-01-24 06:42:52 Test Item Value Reference Range Interpretation Comments SARS-CoV-2 Rapid ID NOW Positive Not Detected A (test code = 17508-1) JADEN (test code = JADEN) ID NOW COVID-19 Assay is an isothermal nucleic acid amplification test intended for the qualitative detection of nucleic acid from SARS-CoV-2 viral RNA in nasopharyngeal (CREDENTIALER) specimens. It is used under Emergency Use Authorization (EUA) by FDA. The limit of detection (LOD) of the assay is 125 Genome Equivalents/mL. A positive result is indicative of the presence of SARS-CoV-2 RNA. ?Clinical correlation with patient history and other diagnostic information is necessary to determine patient infection status. A negative (Not Detected) result does not preclude SARS-CoV-2 infection. In patients with clinical symptoms and other tests that are consistent with SARS-CoV-2 infection, negative results should be treated as presumptive negative and a new specimen should be tested with alternative PCR molecular test. Invalid: Please collect a new specimen for repeat patient testing if clinically indicated. Lab Interpretation Abnormal (test code = 10620-8) [facility] METABOLIC PANEL (13214)2021-01-24 06:42:12 Test Item Value Reference Range Interpretation Comments NA (test code = 138 mmol/L 135-145 2483871292) K (test code = 3.9 mmol/L 3.5-5.0 0070425124) CL (test code = 107 mmol/L 98-108 9270147454) CO2 TOTAL (test code = 24 mmol/L 23-31 0337497992) AGAP (test code = 2-16 6366734156) BUN (test code = 15 mg/dL 7-23 4556355053) GLUCOSE (test code = 96 mg/dL 70-110 9080427750) CREATININE (test code = 1.07 mg/dL 0.50-1.04 H 0282828290) TOTAL BILI (test code = 0.3 mg/dL 0.1-1.6 6994021437) CALCIUM (test code = 8.3 mg/dL 8.6-10.6 L 8142968035) T PROTEIN (test code = 7.2 g/dL 6.3-8.2 7641961482) ALBUMIN (test code = 3.8 g/dL 3.5-5.0 2673672188) ALK PHOS (test code = 57 U/L 34-122 8330153307) ALTv (test code = 28 U/L 5-35 1742-6) AST(SGOT) (test code = 26 U/L 13-40 9608917846) eGFR (test code = mL/min/1.73m2 9298727820) JADEN (test code = JADEN) Association of Glomerular Filtration Rate (GFR) and Staging of Kidney Disease* + --+ --+ ------+| GFR (mL/min/1.73 m2) ?| With Kidney Damage ?| ?Without Kidney Damage+ --------+ --------+ +| ?>90 ?| ?Stage one ?| ? Normal ?+ ---+ ---+ -------+| ?60-89 ?| ?Stage two ?| ? Decreased GFR ? + --+ --+ ------+| ?30-59 ?| ?Stage three ?| ? Stage three ? + --+ --+ ------+| ?15-29 ?| ?Stage four ? | ? Stage four ?+ ---+ ---+ -------+| ?<15 (or dialysis) ? ?| ?Stage five ? | ? Stage five ?+ ---+ ---+ -------+ *Each stage assumes the associated GFR level has been in effect for at least three months. ?Stages 1 to 5, with or without kidney disease, indicate chronic kidney disease. Notes: Determination of stages one and two (with eGFR >59mL/min/1.73 m2) requires estimation of kidney damage for at least three months as defined by structural or functional abnormalities of the kidney, manifested by either:Pathological abnormalities or Markers of kidney damage (including abnormalities in the composition of the blood or urine or abnormalities in imaging tests). Lab Interpretation Abnormal (test code = 74301-8) [facility] WITH [id number] 06:28:31 Test Item Value Reference Range Interpretation Comments WBC (test code = See_Comment L [Automated 2890-2) message] The sy stem which generated this result transmitted reference range : 4.30 - 11.10 10*3/?L. The reference range was not used to interpret this result as normal/abnormal . RBC (test code = See_Comment L [Automated 429-8) message] The sy stem which generated this result transmitted reference range : 3.93 - 5.25 10*6/?L. The reference range was not used to interpret this result as normal/abnormal . HGB (test code = 11.5 g/dL 11.6-15.0 L 718-7) HCT (test code = 34.5 % 35.7-45.2 L 4544-3) MCV (test code = 88.0 fL 80.6-95.5 787-2) MCH (test code = 29.3 pg 25.9-32.8 785-6) MCHC (test code = 33.3 g/dL 31.6-35.1 786-4) RDW-SD (test code = 41.1 fL 39.0-49.9 97366-4) RDW-CV (test code = 12.9 % 12.0-15.5 788-0) PLT (test code = See_Comment [Automated 777-3) message] The sy stem which generated this result transmitted reference range : 166 - 358 10*3/ ?L. The reference r alec was not used to interpret this result as normal/abnormal . MPV (test code = 9.5 fL 9.5-12.9 50279-1) NRBC/100 WBC (test See_Comment [Automat ed code = 4968272675) message] The system which generated this result transmitted reference range : 0.0 - 10.0 /100 WBCs. The refer ence range was not u sed to interpret th is result as normal/abnormal . NRBC x10^3 (test code <0.01 See_Comment [Auto mated = 0053434734) message] The s ystem which generated this result transmitted reference range : 10*3/?L. The reference range was not used to interpret this result as normal/abnormal . GRAN MAT (NEUT) % 72.9 % (test code = 770-8) IMM GRAN % (test code 0.30 % = 9388218731) LYMPH % (test code = 16.5 % 736-9) MONO % (test code = 9.7 % 5905-5) EOS % (test code = 0.3 % 713-8) BASO % (test code = 0.3 % 706-2) GRAN MAT x10^3(ANC) 2.57 10*3/uL 1.88-7.09 (test code = 2334979104) IMM GRAN x10^3 (test <0.03 0.00-0.06 code = 1811251411) LYMPH x10^3 (test code 0.58 10*3/uL 1.32-3.29 L = 731-0) MONO x10^3 (test code 0.34 10*3/uL 0.33-0.92 = 742-7) EOS x10^3 (test code = <0.03 0.03-0.39 L 711-2) BASO x10^3 (test code <0.03 0.01-0.07 = 704-7) Lab Interpretation Abnormal (test code = 51962-5) [facility] [id number] 06:19:00 Test Item Value Reference Range Interpretation Comments POCT PREG (test code = 1605) negative On board controls acceptable with present C Line (test code = 3574) POCT PREG LOT # (test code = 3575) [id number] POCT PREG TEST DATE (test 2022-07-24 code = 3576) Lab Interpretation (test code = Normal 27608-7) [facility]. METABOLIC PANEL (66093)2021-01-04 03:22:35 Test Item Value Reference Range Interpretation Comments NA (test code = 139 mmol/L 135-145 4272814487) K (test code = 3.7 mmol/L 3.5-5.0 2867838106) CL (test code = 104 mmol/L 98-108 3444379186) CO2 TOTAL (test code 24 mmol/L 23-31 = 0095207175) AGAP (test code = 2-16 4812066549) BUN (test code = 16 mg/dL 7-23 0666179158) GLUCOSE (test code = 98 mg/dL 70-110 4010452654) CREATININE (test code 0.70 mg/dL 0.50-1.04 = 2874692040) TOTAL BILI (test code 0.5 mg/dL 0.1-1.1 = 1939119631) CALCIUM (test code = 9.2 mg/dL 8.6-10.6 1071065687) T PROTEIN (test code 7.5 g/dL 6.3-8.2 = 0333528632) ALBUMIN (test code = 4.4 g/dL 3.5-5.0 3397968360) ALK PHOS (test code = 59 U/L 34-122 5773829016) ALTv (test code = 15 U/L 5-35 1742-6) AST(SGOT) (test code 23 U/L 13-40 = 8094902690) eGFR (test code = mL/min/1.73m2 7963195211) JADEN (test code = JADEN) Association of Glomerular Filtration Rate (GFR) and Staging of Kidney Disease* + + +- +| GFR (mL/min/1.73 m2) ?| With Kidney Damage ?| ?Without Kidney Damage+ ------+ ----+ ------+| ?>90 ?| ?Stage one ?| ? Normal ?+ -+ + -+| ?60-89 ?| ?Stage two ?| ? Decreased GFR ? + + +- +| ?30-59 ?| ?Stage three ?| ? Stage three ? + + +- +| ?15-29 ?| ?Stage four ? | ? Stage four ?+ -+ + -+| ?<15 (or dialysis) ? ?| ?Stage five ? | ? Stage five ?+ -+ + -+ *Each stage assumes the associated GFR level has been in effect for at least three months. ?Stages 1 to 5, with or without kidney disease, indicate chronic kidney disease. Notes: Determination of stages one and two (with eGFR >59mL/min/1.73 m2) requires estimation of kidney damage for at least three months as defined by structural or functional abnormalities of the kidney, manifested by either:Pathological abnormalities or Markers of kidney damage (including abnormalities in the composition of the blood or urine or abnormalities in imaging tests). [facility]2021[facility] 03:21:54 Test Item Value Reference Range Interpretation Comments LIPASE (test code = 8178900830) 78 U/L 0-220 Lab Interpretation (test code = Normal 94468-7) [facility] (ID NOW RAPID TESTING)2021-01-04 03:21:39 Test Item Value Reference Range Interpretation Comments SARS-CoV-2 Rapid ID NOW Not Detected Not Detected (test code = 50947-6) JADEN (test code = JADEN) ID NOW COVID-19 Assay is an isothermal nucleic acid amplification test intended for the qualitative detection of nucleic acid from SARS-CoV-2 viral RNA in nasopharyngeal (CREDENTIALER) specimens. It is used under Emergency Use Authorization (EUA) by FDA. The limit of detection (LOD) of the assay is 125 Genome Equivalents/mL. A positive result is indicative of the presence of SARS-CoV-2 RNA. ?Clinical correlation with patient history and other diagnostic information is necessary to determine patient infection status. A negative (Not Detected) result does not preclude SARS-CoV-2 infection. In patients with clinical symptoms and other tests that are consistent with SARS-CoV-2 infection, negative results should be treated as presumptive negative and a new specimen should be tested with alternative PCR molecular test. Invalid: Please collect a new specimen for repeat patient testing if clinically indicated. Lab Interpretation Normal (test code = 28272-1) [facility]2021-05-13 03:13:50 Test Item Value Reference Range Interpretation Comments APPEARANCE (test code Slightly Cloudy Clear A = 3291178456) COLOR (test code = Yellow Yellow 8824495044) PH (test code = 4.8-8.0 4164078331) SP GRAVITY (test code 1.003-1.030 = 6586652242) GLU U QUAL (test code Negative Negative = 1055126512) BLOOD (test code = Negative Negative 2741204420) KETONES (test code = Negative Negative 8058877081) PROTEIN (test code = Negative Negative 2887-8) UROBILIN (test code = 0.2 mg/dL See_Comment [Auto mated 2727448170) message] The system which generated this result transmit rogelio reference range : 0-1.0 mg/dL. Th e reference range was not used to interpret this result as normal/abnormal . BILIRUBIN (test code Negative Negative = 8187190229) NITRITE (test code = Negative Negative 5502221052) LEUK RHODA (test code Negative Negative = 1733205269) RBC/HPF (test code = See_Comment [Autom ated 4077462250) message] The system which generated this result transmit orgelio reference range : 0 - 3 HPF. The reference range was not used to interpret this result as normal/abnormal . WBC/HPF (test code = See_Comment [Autom ated 4891940293) message] The system which generated this result transmit rogelio reference range : 0 - 5 HPF. The reference range was not used to interpret this result as normal/abnormal . BACTERIA (test code = Negative Negative 6293640577) SQ EPITH (test code = HPF 6173299644) Lab Interpretation Abnormal (test code = 00306-7) [facility] WITH [id number] 03:01:12 Test Item Value Reference Range Interpretation Comments WBC (test code = See_Comment [Automated 5390-2) message] The sy stem which generated this result transmitted reference range : 4.30 - 11.10 10*3/?L. The reference range was not used to interpret this result as normal/abnormal . RBC (test code = See_Comment [Automated 789-8) message] The sy stem which generated this result transmitted reference range : 3.93 - 5.25 10*6/?L. The reference range was not used to interpret this result as normal/abnormal . HGB (test code = 13.8 g/dL 11.6-15.0 718-7) HCT (test code = 40.6 % 35.7-45.2 4544-3) MCV (test code = 85.3 fL 80.6-95.5 787-2) MCH (test code = 29.0 pg 25.9-32.8 785-6) MCHC (test code = 34.0 g/dL 31.6-35.1 786-4) RDW-SD (test code = 38.7 fL 39.0-49.9 L 77143-5) RDW-CV (test code = 12.4 % 12.0-15.5 788-0) PLT (test code = See_Comment [Automated 777-3) message] The sy stem which generated this result transmitted reference range : 166 - 358 10*3/ ?L. The reference r alec was not used to interpret this result as normal/abnormal . MPV (test code = 9.3 fL 9.5-12.9 L 47888-9) NRBC/100 WBC (test See_Comment [Automat ed code = 2855652864) message] The system which generated this result transmitted reference range : 0.0 - 10.0 /100 WBCs. The refer ence range was not u sed to interpret th is result as normal/abnormal . NRBC x10^3 (test code <0.01 See_Comment [Auto mated = 0324997979) message] The s ystem which generated this result transmitted reference range : 10*3/?L. The reference range was not used to interpret this result as normal/abnormal . GRAN MAT (NEUT) % 45.5 % (test code = 770-8) IMM GRAN % (test code 0.50 % = 0711684458) LYMPH % (test code = 46.2 % 736-9) MONO % (test code = 5.8 % 5905-5) EOS % (test code = 1.4 % 713-8) BASO % (test code = 0.6 % 706-2) GRAN MAT x10^3(ANC) 2.91 10*3/uL 1.88-7.09 (test code = 6556621716) IMM GRAN x10^3 (test 0.03 10*3/uL 0.00-0.06 code = 9414413435) LYMPH x10^3 (test code 2.95 10*3/uL 1.32-3.29 = 731-0) MONO x10^3 (test code 0.37 10*3/uL 0.33-0.92 = 742-7) EOS x10^3 (test code = 0.09 10*3/uL 0.03-0.39 711-2) BASO x10^3 (test code 0.04 10*3/uL 0.01-0.07 = 704-7) Lab Interpretation Abnormal (test code = 88824-3) [facility] IrvingPO[facility] [id number] 02:46:00 Test Item Value Reference Range Interpretation Comments POCT PREG (test code = 1605) Negative On board controls acceptable with Present C Line (test code = 3574) POCT PREG LOT # (test code = HCG [id number]) POCT PREG TEST DATE (test 07/24/2022 code = 3576) Lab Interpretation (test code = Normal 59479-7) [facility] IrvingEBV-MONONUCLEOSIS [id number] 23:22:33 Test Item Value Reference Range Interpretation Comments EBV Mononucleosis Screen (test code Negative Negative = 4613535170) Lab Interpretation (test code = Normal 39229-3) [facility] METABOLIC PANEL (47146)2021-01-02 23:01:36 Test Item Value Reference Range Interpretation Comments NA (test code = 137 mmol/L 135-145 9637201245) K (test code = 4.5 mmol/L 3.5-5.0 5251848067) CL (test code = 104 mmol/L 98-108 1998793264) CO2 TOTAL (test code 23 mmol/L 23-31 = 1851345229) AGAP (test code = 2-16 6323788012) BUN (test code = 10 mg/dL 7-23 2812373840) GLUCOSE (test code = 97 mg/dL 70-110 3126174248) CREATININE (test code 0.65 mg/dL 0.50-1.04 = 7234264403) TOTAL BILI (test code 0.5 mg/dL 0.1-1.1 = 1454731662) CALCIUM (test code = 8.9 mg/dL 8.6-10.6 1871753895) T PROTEIN (test code 7.4 g/dL 6.3-8.2 = 8661880269) ALBUMIN (test code = 4.4 g/dL 3.5-5.0 2929149409) ALK PHOS (test code = 62 U/L 34-122 3099188121) ALTv (test code = 15 U/L 5-35 1742-6) AST(SGOT) (test code 21 U/L 13-40 = 9458330229) eGFR (test code = mL/min/1.73m2 9777511887) JADEN (test code = JADEN) Association of Glomerular Filtration Rate (GFR) and Staging of Kidney Disease* + + +- +| GFR (mL/min/1.73 m2) ?| With Kidney Damage ?| ?Without Kidney Damage+ ------+ ----+ ------+| ?>90 ?| ?Stage one ?| ? Normal ?+ -+ + -+| ?60-89 ?| ?Stage two ?| ? Decreased GFR ? + + +- +| ?30-59 ?| ?Stage three ?| ? Stage three ? + + +- +| ?15-29 ?| ?Stage four ? | ? Stage four ?+ -+ + -+| ?<15 (or dialysis) ? ?| ?Stage five ? | ? Stage five ?+ -+ + -+ *Each stage assumes the associated GFR level has been in effect for at least three months. ?Stages 1 to 5, with or without kidney disease, indicate chronic kidney disease. Notes: Determination of stages one and two (with eGFR >59mL/min/1.73 m2) requires estimation of kidney damage for at least three months as defined by structural or functional abnormalities of the kidney, manifested by either:Pathological abnormalities or Markers of kidney damage (including abnormalities in the composition of the blood or urine or abnormalities in imaging tests). [facility] WITH [id number] 21:34:07 Test Item Value Reference Range Interpretation Comments WBC (test code = See_Comment [Automated 6690-2) message] The sy stem which generated this result transmitted reference range : 4.30 - 11.10 10*3/?L. The reference range was not used to interpret this result as normal/abnormal . RBC (test code = See_Comment [Automated 789-8) message] The sy stem which generated this result transmitted reference range : 3.93 - 5.25 10*6/?L. The reference range was not used to interpret this result as normal/abnormal . HGB (test code = 13.0 g/dL 11.6-15.0 718-7) HCT (test code = 38.2 % 35.7-45.2 4544-3) MCV (test code = 85.1 fL 80.6-95.5 787-2) MCH (test code = 29.0 pg 25.9-32.8 785-6) MCHC (test code = 34.0 g/dL 31.6-35.1 786-4) RDW-SD (test code = 37.9 fL 39.0-49.9 L 70682-7) RDW-CV (test code = 12.4 % 12.0-15.5 788-0) PLT (test code = See_Comment [Automated 777-3) message] The sy stem which generated this result transmitted reference range : 166 - 358 10*3/ ?L. The reference r alec was not used to interpret this result as normal/abnormal . MPV (test code = 8.6 fL 9.5-12.9 L 70625-4) NRBC/100 WBC (test See_Comment [Automat ed code = 2009780441) message] The system which generated this result transmitted reference range : 0.0 - 10.0 /100 WBCs. The refer ence range was not u sed to interpret th is result as normal/abnormal . NRBC x10^3 (test code <0.01 See_Comment [Auto mated = 0480518459) message] The s ystem which generated this result transmitted reference range : 10*3/?L. The reference range was not used to interpret this result as normal/abnormal . GRAN MAT (NEUT) % 82.9 % (test code = 770-8) IMM GRAN % (test code 0.30 % = 8312693873) LYMPH % (test code = 14.4 % 736-9) MONO % (test code = 2.2 % 5905-5) EOS % (test code = 0.0 % 713-8) BASO % (test code = 0.2 % 706-2) GRAN MAT x10^3(ANC) 8.14 10*3/uL 1.88-7.09 H (test code = 0337692028) IMM GRAN x10^3 (test 0.03 10*3/uL 0.00-0.06 code = 6331109896) LYMPH x10^3 (test code 1.42 10*3/uL 1.32-3.29 = 731-0) MONO x10^3 (test code 0.22 10*3/uL 0.33-0.92 L = 742-7) EOS x10^3 (test code = <0.03 0.03-0.39 L 711-2) BASO x10^3 (test code <0.03 0.01-0.07 = 704-7) Lab Interpretation Abnormal (test code = 33649-3) [facility] STREP SCREEN FOR GROUP [id number] 20:43:34 Test Item Value Reference Range Interpretation Comments Streptococcus pyogenes (group A) Negative Negative antigen (test code = 48794-8) Lab Interpretation (test code = Normal 24335-7) [facility] GLUCOSE (AUTOMATED)2021-01-02 20:12:56 Test Item Value Reference Range Interpretation Comments POCT GLU (test code = 6011523051) 110 mg/dL 70-110 Lab Interpretation (test code = Normal 99196-3) [facility] GRP A STREP (MOLECULAR)2019-11-11 16:15:00 Test Item Value Reference Range Interpretation Comments POCT GP A STREP (test code = Negative Negative - Negative 04029-3) Lab Interpretation (test code = Normal 91627-1) [facility] GRP A STREP (MOLECULAR)2019-11-11 16:15:00 Test Item Value Reference Range Interpretation Comments POCT GP A STREP (test code = Negative Negative - Negative 82799-6) Lab Interpretation (test code = Normal 64430-9) [facility] FLU A AND B (MOLECULAR)2019-11-11 15:37:00 Test Item Value Reference Range Interpretation Comments POCT INFLUENZA A (test code = Negative Negative - Negative 3840) POCT INFLUENZA B (test code = negative Negative - Negative 3841) Lab Interpretation (test code = Normal 10745-5) [facility] FLU A AND B (MOLECULAR)2019-11-11 15:37:00 Test Item Value Reference Range Interpretation Comments POCT INFLUENZA A (test code = Negative Negative - Negative 3840) POCT INFLUENZA B (test code = negative Negative - Negative 3841) Lab Interpretation (test code = Normal 36602-7) [facility]"
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
[2022-02-07 01:15] VITALS: BP 105/86; TEMP 98.2; O2SAT 99
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
== END 2022-02-07 00:45 | disposition home or self-care (01) ==
LOC: ER 22:14
DX: S61.211A Laceration without foreign body of left index finger without damage to nail, initial encounter (principal); S09.90XA Unspecified injury of head, initial encounter; Y04.1XXA Assault by human bite, initial encounter; Z88.0 Allergy status to penicillin
CPT/HCPCS: 70450; 72125; 99283

== ENCOUNTER 2022-10-23 12:16 | Emergency (ER) | payer BC ==
--- OUTSIDE RECORDS SUMMARY | 2022-10-23 12:41 | XMS REPORT | Continuity of Care Document ---
:1980 Author Organization [facility] t Address [address] [place] [address] Care Team Providers Name Role Phone [facility] Primary Care Physician Doctor Unassigned, [place] Attending Clinician Unavailable CHANDRAKANT HERNANDEZ Attending Clinician Unavailable Chandrakant Hernandez MD Attending Clinician NGUYEN GUAJARDO Attending Clinician Unavailable Nguyen Guajardo MD Attending Clinician INEZ GRACIA Attending Clinician Unavailable INEZ RGACIA Attending Clinician Unavailable CARY CABELLO Attending Clinician Unavailable Cary Matthews Attending Clinician Provider, [facility] Attending Clinician Unavailable LAURA PELAYO Attending Clinician Unavailable Laura Pelayo NP Attending Clinician Terri Ireland Attending Clinician [phone] TERRI TUTTLE Attending Clinician Unavailable ClarkKitty baxter RN Attending Clinician Unavailable Inez Gabriel Attending Clinician Taryn ANGELESLois S Attending Clinician Dedra Felix DO Attending Clinician INEZ FELIX Attending Clinician Unavailable Pcp, Patient Does Not Have A Attending Clinician [phone] Any Herrera Attending Clinician Pob1, Acute [facility] Attending Clinician Unavailable LAURA MCLEAN Attending Clinician Unavailable CHANDRAKANT HERNANDEZ Admitting Clinician Unavailable Payers Payer Name Policy Type Policy Number Effective Date Expiration Date S alen MTZ FROM [id number] 2021 [facility] 00:00:00 COMMERCIAL [id number] 2021 NON-CONTRACT 00:00:00 GENERIC BCBS OF [place] [facility] [[email or web address] [id number] 2019 OF [place] [id number] 00:00:00 Problems Condition Condition Condition Status Onset Resolution Last Treating Co mments Source Name Details Category Date Date Treatment Clinician Date Gastroente Gastroente Disease Active 2021-08 U nivers ritis ritis 2-30 ity of 00:00: [address] Branch Vomiting Vomiting Disease Active 2021-08 Unive rs and and 2-30 ity of diarrhea diarrhea 00:00: [address] Branch Gonorrhea Gonorrhea Disease Active Uni vers 3-05 ity of 00:00: [address] Branch Cervical Cervical Disease Active Overview: Un henrik Papanicola Papanicola 3-02 Formattin ity of ou smear ou smear 00:00: g of this Elio as negative negative 00 note Medica l within within might be Branch last 12 last 12 different months months from the original. NIL pap 09/2019 neg HPV Lump or Lump or Disease Active Univers mass in mass in 2-26 ity of breast breast 00:00: [place] [facility] Abnormal Abnormal Disease Active 2015-08 Unive rs menstrual menstrual 0-03 ity of cycle cycle 00:00: [place] [id number] Medical Branch History of History of Disease [...] itis itis 00:00: [place] 00 Medical Branch History of History of Disease Active Overview [...] ity of 00:00: [place] 00 Medical Branch Penicill Propensi Active Hives Univer s ins ty to 3-03 ity of adverse 00:00: [place] reaction Medical s Branch Social History Social Habit Start Date Stop Date Quantity Comments Source History SDOH University o f Alcohol Frequency [place] [facility] History [facility] University o f Alcohol Std [place] [facility] Drinks Branch History [facility] University o f Alcohol Binge [place] [facility] al Branch Exposure to 2022-08-17 2022-08-27 Not sure University of SARS-CoV-2 00:00:00 20:31:00 [facility] (event) Branch Alcohol intake 2022-08-23 2022-08-23 Current drinker Unive rsity of 00:00:00 00:00:[address] [facility] (finding) Branch Tobacco use and 2022-03-05 2022-03-05 Smokeless tobacco Un iversity of exposure 00:00:00 00:00:00 non-user [facility] Alcohol Comment 2016-05-27 2016-05-27 occasional-holida Un iversity of 00:00:00 00:00:00 [facility] Sex Assigned At [birth year] Universit y of 00:00:00 00:00:00 [facility] Smoking Status Start Date Stop Date Source Never smoked tobacco [facility] Medications Ordered Filled Start Stop Current Ordering Indication Dosage Frequency Signature Comments Components Source Medication Medication Date Date Medication? Clinician (SIG) Name Name NaCl 0.9% 2022- Yes 1000mL at 999 Uni vers (NS) bolus 08-2804 mL/hr, ity of infusion 07:45: 19:44 1,000 mL, Elio as 1,000 mL 00 :00 IV Medical Piggyback, Branch ONCE, 1 dose, On Fri08/28/22 at 0145, STAT iopamidol 2022- No [id number] 75mL 75 mL, U nivers (ISOVUE 08-28 Intravenou ity o f 370-500 mL) 05:30: 05:30 s, ONCE, 1 [place] injection 00 :00 dose, On Medica l 75 mL Fri08/27/22 Branch at 2330, Routine levoFLOXaci 2022- No 750mg 750 mg, IV Univers n in D5W 08-28 Piggyback, ity of (LEVAQUIN) 04:45: 07:02 ONCE, 1 [place] as 750 mg/150 00 :00 dose, On Medic al mL Fri08/27/22 Branch Piggyback at 2245, 750 mg Administer over 90 Minutes, 150 mL
R sally for Anti-Infec tive: Documented Infection< br>Documen rogelio Infection Site: Urine
D uration of Therapy: 7 days NaCl 0.9% 2022- No 1000mL at 999 Uni vers (NS) bolus 08-28 mL/hr, ity of infusion 03:30: 06:07 1,000 mL, Elio as 1,000 mL 00 :00 IV Medical Piggyback, Branch ONCE, 1 dose, On Fri08/27/22 at 2130, STAT ondansetron 0 Yes [id number] 4mg Take 1 Univers 4 mg 1-04 tablet by ity of disintegrat 00:00: mouth [place] ing tablet 00 every 8 Medica l (eight) Branch hours as needed for Nausea and Vomiting (N/V). ondansetron Yes [id number] 4mg Take 1 Univers 4 mg 1-04 tablet by ity of disintegrat 00:00: mouth [place] ing tablet 00 every 8 Medica l (eight) Branch hours as needed for Nausea and Vomiting (N/V). levoFLOXaci 2022- Yes [id number] 500mg Take 1 Univers n 1-04 01-14 tablet by ity of (LEVAQUIN) 00:00: 05:59 [place] 500 mg 00 :00 the Medical tablet morning Branch for 9 days. dicyclomine 2021-08- No 20mg 20 mg, Uni vers (BENTYL) - 12-31 Oral, ity of tablet 20 03:15: 03:40 ONCE, 1 [place] mg 00 :00 dose, On Medical Fri Branch 08/23/22 at 2115, SHERLEY ondansetron 2021-08- No 4mg 4 mg, Slow Univers (ZOFRAN 08-24 IV Push, ity of (PF)) 03:15: 03:39 ONCE, 1 [place] injection 4 00 :00 dose, On Medi marcus mg Fri Branch 08/23/22 at 2115, SHERLEY NaCl 0.9% 2021-08- No 1000mL at 999 Uni vers (NS) bolus 08-24 mL/hr, ity of infusion 03:15: 04:43 1,000 mL, Elio as 1,000 mL 00 :00 IV Medical Infusion, Branch ONCE, 1 dose, On 08/23/22 at 2115, STAT ondansetron 2021-08- Yes [id number] 4mg Take 1 Univers 4 mg 2-30 -15 tablet by ity of disintegrat 00:00: 05:59 [place] ing tablet 00 :00 every 8 Medica l (eight) Branch hours as needed for Nausea and Vomiting (N/V) for up to 15 days. ondansetron 2021-08- Yes [id number] 4mg Take 1 Univers 4 mg 2-30 01-15 tablet by ity of disintegrat 00:00: 05:59 [place] ing tablet 00 :00 every 8 Medica l (eight) Branch hours as needed for Nausea and Vomiting (N/V) for up to 15 days. dicyclomine 2021-08- Yes [id number] 20mg Take 1 Univers 20 mg 2-30 01-10 tablet by ity of tablet 00:00: 05:59 mouth 2 [place] 00 :00 (two) [facility] daily as needed for Abdominal pain for up to 10 days. dicyclomine 2021-08- Yes [id number] 20mg Take 1 Univers 20 mg 2-30 01-10 tablet by ity of tablet 00:00: 05:59 mouth 2 [place] 00 :00 (two) [facility] daily as needed for Abdominal pain for up to 10 days. No known No No known Unive rs medications 7-12 medication it y of 14:36: s [address] No known No No known Unive rs medications 7-12 medication it y of 14:36: s [address] No known No No known Unive rs medications 7-12 medication it y of 14:36: s [address] No known No No known Unive rs medications 7-12 medication it y of 14:36: s [address] Immunizations Ordered Filled Immunization Date Status Comments [facility] e Immunization Name Name [facility] 2022-03-05 Completed University of 00:00:00 [facility] 2022-03-05 Completed University of 00:00:00 [facility] 2022-03-05 Completed University of 00:00:00 [facility] 2022-03-05 Completed University of 00:00:00 [facility] 2022-03-05 Completed University of 00:00:00 [facility] HPV9 2022-03-05 Completed University of 00:00:00 [facility] HPV9 2022-03-05 Completed University of 00:00:00 [facility] Td 2018-11-29 Completed University of 00:00:00 [facility] Td 2018-11-29 Completed University of 00:00:00 [facility] Td 2018-11-29 Completed University of 00:00:00 [facility] Td 2018-11-29 Completed University of 00:00:00 [facility] TD, NOS 2018-11-29 Completed University of 00:00:00 [facility] TD, NOS 2018-11-29 Completed University of 00:00:00 [facility] TD, NOS 2018-11-29 Completed University of 00:00:[address] [facility] Branch TDAP 2014-10-25 Completed University of 00:00:00 [place] [facility] TDAP 2014-10-25 Completed University of 00:00:00 [place] [facility] TDAP 2014-10-25 Completed University of 00:00:00 [place] [facility] TDAP 2014-10-25 Completed University of 00:00:00 [place] [facility] TDAP 2014-10-25 Completed University of 00:00:00 [place] [facility] TDAP 2014-10-25 Completed University of 00:00:00 [place] [facility] TDAP 2014-10-25 Completed University of 00:00:00 [place] [facility] Td 1993-10-25 Completed University of 00:00:00 [place] [facility] Td 1993-10-25 Completed University of 00:00:00 [place] [facility] Td 1993-10-25 Completed University of 00:00:00 [place] [facility] Td 1993-10-25 Completed University of 00:00:00 [facility] TD, NOS 1993-10-25 Completed University of 00:00:00 [facility] TD, NOS 1993-10-25 Completed University of 00:00:00 [facility] TD, NOS 1993-10-25 Completed University of 00:00:00 [facility] Vital Signs Vital Name Observation Time Observation Value Comments Source Systolic blood 2022-08-28 06:06:07 99 mm[Hg] Univer sity of pressure [facility] Diastolic blood 2022-08-28 06:06:07 70 mm[Hg] Unive rsity of pressure [facility] Heart rate 2022-08-28 06:06:07 95 /min [facility] Respiratory rate 2022-08-28 06:06:07 18 /min [facility] Oxygen saturation in 2022-08-28 06:06:07 100 /min [facility] Arterial blood by [facility] Pulse oximetry [place] Body temperature 2022-08-28 02:33:[address] [facility] Body height 2022-08-28 02:33:00 160 cm [facility] Body weight 2022-08-28 02:33:00 70.308 kg [facility] BMI 2022-08-28 02:33:00 27.46 kg/m2 [facility] Systolic blood 2022-08-24 02:32:00 123 mm[Hg] Univer sity of pressure [facility] Diastolic blood 2022-08-24 02:32:00 82 mm[Hg] Unive rsity of pressure [facility] Heart rate 2022-08-24 02:32:00 97 /min [facility] Body temperature 2022-08-24 02:32:[address] [facility] Respiratory rate 2022-08-24 02:32:00 18 /min [facility] Body height 2022-08-24 02:32:00 160 cm [facility] Body weight 2022-08-24 02:32:00 70.308 kg [facility] BMI 2022-08-24 02:32:00 27.46 kg/m2 [facility] Oxygen saturation in 2022-08-24 02:32:00 100 /min [facility] Arterial blood by [facility] Pulse oximetry Branch Procedures Procedure Date / Time Performing Clinician Source Performed AUTHORIZATION FOR 2022-09-30 06:01:00 Doctor Unassigned, No [facility] RELEASE OF PHI Name [facility] LACTIC ACID WHOLE BLOOD 2022-08-28 04:57:[address] [facility] CT ABDOMEN PELVIS W 2022-08-28 04:40:00 Chandrakant Hernandez [facility] CONTRAST [facility] CBC WITH DIFF 2022-08-28 04:15:00 Chandrakant Hernandez [facility] LIPASE 2022-08-28 03:31:00 Chandrakant Hernandez [facility] COMP. METABOLIC PANEL 2022-08-28 03:31:00 Chandrakant Hernandez [facility] ([id number]) [facility] URINALYSIS 2022-08-28 03:31:00 Chandrakant Hernandez [facility] CONSENT/REFUSAL FOR 2022-08-28 02:24:47 Doctor Unassigned, No [facility] DIAGNOSIS AND TREATMENT Name [facility] POCT TEST 2022-08-24 03:42:00 Nguyen Guajardo [facility] LIPASE 2022-08-24 03:37:00 Nguyen Guajardo [facility] COMP. METABOLIC PANEL 2022-08-24 03:37:00 Nguyen Guajardo [facility] ([id number]) [facility] CBC WITH DIFF 2022-08-24 03:37:00 Nguyen Guajardo [facility] URINALYSIS 2022-08-24 03:37:00 Nguyen Guajardo [facility] RAPID INFLUENZA A/B 2022-08-24 03:37:00 Nguyen [facility] (ID NOW RAPID 2022-08-24 03:37:00 Nguyen Guajardo [facility] TESTING) Medical Branch NOTICE OF PRIVACY 2022-08-24 02:25:40 Doctor Unassigned, No [facility] PRACTICES Name Medical Branch CONSENT/REFUSAL FOR 2022-08-24 02:25:26 [facility]ATMENT Name [facility] BI ULTRASOUND BREAST 2022-04-19 16:54:50 Inez Gracia [facility] COMPLETE LEFT [facility] BI DIAGNOSTIC 2022-04-19 15:45:17 Inez Gracia [facility] TOMOSYNTHESIS BILATERAL [facility] EXTERNAL PROVIDER 2022-03-11 05:01:00 Doctor Unassigned, No [facility] RECORDS Name [facility] Encounters Start End Encounter Admission Attending Care Care Encounter Source Date/Time Date/Time Type Type Clinicians Facility Department ID 2021-06-25 Emergency [facility] [id number] Univers 12:18:21 ity of [facility] 2021-06-24 Emergency [facility] [id number] Univers 22:33:05 ity of [facility] 2021-06-24 Emergency [facility] [id number] Univers 18:47:40 ity of [facility] 2021-06-24 Emergency [facility] [id number] Univers 18:26:56 ity of [facility] 2022-09-30 2022-09-30 Orders Doctor WHITT 1.2.840.114 [id number] Univers 00:00:00 00:00:00 Only Unassigned, MOISÉS [id number] ity of [place] [facility] [id number] Elio as [id number] [facility] 009 Branch 2022-08-27 2022-08-28 Emergency X GERARDO, [facility] ERT [id number] Univers 20:38:00 01:18:00 CHANDRAKANT ity of [facility] 2022-08-27 2022-08-28 Emergency [facility] [id number] Univers 20:38:00 01:18:00 Chandrakant FERNANDO [id number] i ty of [place] [id number] [address] 2022-08-23 2022-08-23 Emergency X [facility], [facility] ERT [id number] Univers 20:34:00 22:46:00 NGUYEN ity of [facility] 2022-08-23 2022-08-23 [facility] [id number] Univers 20:34:00 22:46:00 Nguyen Manjit FERNANDO [id number] ity [facility] 4.2.7.2.686 [place] [id number] [facility] 084 Branch 2022-04-19 2022-04-19 Outpatient R INEZ GRACIA [facility] [id number] Univers 09:48:10 23:59:00 INEZ GRACIA [facility] 2022-04-19 2022-04-19 [facility], UNIVERSIT 1.2.840.114 [id number] Univers 09:48:10 23:59:00 Encounter Inez Ford HEALTH [id number] ity of CL[place] 4.2.7.2.[place] [id number] [facility] 800 Branch 2022-04-19 2022-04-19 [facility] 1.2.840.114 [id number] Univers 09:47:42 09:47:42 Encounter Inez Ford HEALTH [id number] ity of CL[place] 4.2.7.2.[place] [id number] [facility] 800 Branch 2022-04-11 2022-04-11 Outpatient R DESTINEY [facility] [id number] Univers 10:00:00 10:00:00 VINCENZOALAYNA clarice o f [facility] 2022-04-08 2022-04-08 Outpatient R [facility] [id number] Univers 13:30:00 13:30:00 ity [facility] 2022-04-08 2022-04-08 Outpatient R [facility] [id number] Univers 13:30:00 13:30:00 ity [facility] 2022-04-08 2022-04-08 Outpatient R DESTINEY [facility] [id number] Univers 13:30:00 13:30:00 CARY oneil o [facility] 2022-04-01 2022-04-01 Outpatient R BERNICEINEZ Mahmood [facility] [id number] Univers 00:00:00 00:00:00 INEZ GRACIA [facility] 2022-04-01 2022-04-01 Outpatient R INEZ GRACIA [facility] [id number] Univers 00:00:00 00:00:00 SAMIA INEZ clarice [facility] 2022-03-15 2022-03-15 [place] [id number] Univers 00:00:00 00:00:00 Cary Pastor [employer] [id number] ity of [facility] [id number] Elio as MATERNAL [id number] Med ical & CHILD [address] [place] [address] 2022-03-13 2022-03-13 Outpatient R DESTINEY [facility] [id number] Univers 10:00:00 10:00:00 VINCENZOALAYNA oneil o f [facility] 2022-03-13 2022-03-13 Orders Doctor WHITT 1.2.840.114 [id number] Univers 00:00:00 00:00:00 Only Unassigned, MOISÉS [id number] [facility] 4.2.7.2.686 Elio as [id number] [address] 2022-03-13 2022-03-13 Case Destiney [facility] 1.2.840.114 [id number] Univers 00:00:00 00:00:00 Management Cary Pastor [employer] [id number] ity of REGIONAL 4.2.7.2.686 Elio as MATERNAL [id number] [facility] & CHILD [address] [place] [address] 2022-03-11 2022-03-11 Orders Doctor PERI 1.2.840.114 [id number] Univers 00:00:00 00:00:00 Only Unassigned, MOISÉS [id number] ity of [place] [facility] 4.2.7.2.686 Elio as [id number] [address] 2022-03-05 2022-03-05 [facility] 1 .2.840.114 [id number] Univers 13:45:00 15:29:53 Visit Inez Gracia [employer] [id number] ity of [facility] 4.2.7.2.686 [place]io as MATERNAL [id number] [facility] & CHILD [address] [place] [address] 2022-03-05 2022-03-05 Outpatient R INEZ GRACIA [facility] [id number] Univers 13:45:00 15:29:53 INEZ GRACIA [facility] 2022-03-05 2022-03-05 Outpatient R INEZ GRACIA [facility] [id number] Univers 13:45:00 13:45:00 INEZ GRACIA [facility] 2022-03-05 2022-03-05 Outpatient R INEZ GRACIA [facility] [id number] Univers 13:45:00 13:45:00 INEZ GRACIA [facility] 2022-03-05 2022-03-05 Orders Doctor PERI 1.2.840.114 [id number] Univers 00:00:00 00:00:00 Only Unassigned, MOISÉS [id number] ity of [place] [facility] 4.2.7.2.686 Elio as [id number] [facility] 009 [place] 2021-12-21 2021-12-21 Outpatient R [facility] [id number] Univers 20:20:00 20:20:00 ity of [facility] 2021-09-27 2021-09-27 Emergency X [facility] ERT [id number] Univers 11:15:00 15:02:00 LAURA ity of [facility] 2021-09-27 2021-09-27 Emergency [facility] [id number] Univers 11:15:00 15:02:00 Laura FERNANDO 350.1.13.10 ity of [place] 4.2.7.2.686 [place] [id number] [facility] 084 [place] 2021-09-27 2021-09-27 Orders Doctor PERI 1.2.840.114 [id number] Univers 00:00:00 00:00:00 Only Unassigned, MOISÉS 350.1.13.10 ity of [place] [facility] 4.2.7.2.686 Elio as [id number] [facility] 009 Branch 2021-05-03 2021-05-03 Office [facility] [id number] Univers 13:05:08 14:38:12 Visit Terri Garcia [employer] 350.1.13.10 ity [facility] 4.2.7.2.686 Elio as MATERNAL [id number] [facility] ical & CHILD [address] [place] [address] 2021-05-03 2021-05-03 Outpatient R [facility] [id number] Univers 13:15:00 13:15:00 TERRI oneil o f [facility] 2021-04-03 2021-04-03 Telephone Amber Vasquez 1.2.840.114 [id number] Univers 00:00:00 00:00:00 , Kitty Renee 350.1.13.10 ity of [place] 4.2.7.2.[place] [id number] [place] 669996 [place] 2021-03-25 2021-03-25 Emergency [facility] [id number] Univers 23:08:00 23:46:00 Laura Fernando 350.1.13.10 ity of [place] 4.2.7.2.686 [facility] [id number] [address] 2021-03-25 2021-03-25 Emergency [facility] [id number] Univers 23:08:00 23:46:00 LAURA oneil [facility] 2021-03-08 2021-03-08 Telephone [facility] 1.2.840.114 [id number] Univers 00:00:00 00:00:00 Terri Garcia [employer] 350.1.13.10 ity of [facility] 4.2.7.2.686 Elio as MATERNAL [id number] [facility] & [address] 2021-03-02 2021-03-02 Telephone [facility] 1.2.840.114 [id number] Univers 00:00:00 00:00:00 Inez Langston [employer] 350.1.13.10 it y of [facility] 4.2.7.2.686 Elio as MATERNAL [id number] [address] 2021-02-07 2021-02-07 Outpatient R [facility] [id number] Univers 13:15:00 13:15:00 TERRI batres f [facility] 2021-01-24 2021-01-24 Emergency [facility] [id number] 00:16:00 02:29:00 Lois Fernando 350.1.13.10 [place] 4.2.7.2.686 [place] [id number] [facility] 2021-01-24 2021-01-24 Emergency [facility] [id number] Univers 00:16:00 02:29:00 Lois Fernando 350.1.13.10 i ty of [place] 4.2.7.2.686 [facility] [id number] [address] 2021-01-24 2021-01-24 Orders Doctor WHITT 1.2.840.114 [id number] 00:00:00 00:00:00 Only Unassigned, MOIS[place] 350.1.13.10 [place] [facility] 4.2.7.2.686 [id number] 2021-01-24 2021-01-24 Orders Doctor PERI 1.2.840.114 [id number] Univers 00:00:00 00:00:00 Only Unassigned, MOISÉS 350.1.13.10 ity of [place] [facility] 4.2.7.2.686 Elio as [id number] [address] 2021-01-23 2021-01-23 Orders Doctor PERI 1.2.840.114 [id number] 00:00:00 00:00:00 Only Unassigned, MOIS[place] 350.1.13.10 [place] [facility] 4.2.7.2.686 [id number] 2021-01-23 2021-01-23 Orders Doctor PERI 1.2.840.114 [id number] Univers 00:00:00 00:00:00 Only Unassigned, MOISÉS 350.1.13.10 ity of [place] [facility] 4.2.7.2.686 Elio as [id number] [address] 2021-01-03 2021-01-03 Emergency Elvira, [facility] 1.2.840.114 [id number] 21:27:00 23:45:00 Dedra Fernando 350.1.13.10 [place] 4.2.7.2.686 [place] [id number] 2021-01-03 2021-01-03 Emergency Elvira [facility] 1.2.840.114 [id number] [facility] [place] [facility] 21:27:00 23:45:00 Dedra Fernando 350.1.13.10 ity of [place] 4.2.7.2.686 [place] [facility] [id number] [place] [id number] Branch 2021-01-02 2021-01-02 Emergency Taryn, [facility] [id number] 14:10:00 19:43:00 Lois Fernando 350.1.13.10 [place] 4.2.7.2.686 [place] [id number] 08 2021-01-02 2021-01-02 Emergency Taryn, [facility] [facility] [id number] [facility] 14:10:00 19:43:00 Lois Rowland Mode 350.1.13.10 i ty of [place] 4.2.7.2.686 [facility] [phone] [facility] 084 [place] 2021-01-02 2021-01-02 Orders Doctor PERI 1.2.840.114 [id number] Univers 00:00:00 00:00:00 Only Unassigned, MOISÉS 350.1.13.10 ity of [place] [facility] 4.2.7.2.686 Elio as [phone] [facility] 009 [place] 2021-01-02 2021-01-02 Orders Doctor PERI 1.2.840.114 [id number] 00:00:00 00:00:00 Only Unassigned, MOISÉS 350.1.13.10 [place] [facility] 4.2.7.2.686 [id number] [id number] 2020-11-17 2020-11-17 Outpatient R ANDREA [facility] [place] [id number] Univers 14:30:00 14:30:00 TERRI perera [facility] 2020-11-07 2020-11-07 [facility] [id number] Univers 14:03:28 14:54:11 Visit Terri C [employer] 350.1.13.10 ity of [facility] 4.2.7.2.686 Elio as MATERNAL [phone] [facility] ical & CHILD [address] [place] [address] 2020-11-07 2020-11-07 [facility] [id number] 14:03:28 14:54:11 Visit Terri C [employer]ONE [employer] 350.1.13.10 REGIONAL 4.2.7.2.686 MATERNAL [phone] & CHILD [address] [place] [address] 2020-11-07 2020-11-07 Outpatient R ANDREA [facility] [place] [id number] Univers 14:00:00 14:00:00 TERRI batres f [facility] 2020-11-07 2020-11-07 Outpatient R ANDREA [facility] [place] [id number] Univers 14:00:00 14:00:00 TERRI ity o f [facility] 2020-11-02 2020-11-02 Outpatient R [facility] [place] [id number] Univers 10:00:00 10:00:00 ity of [facility] 2020-11-02 2020-11-02 Outpatient R DESTINEY [facility] [place] [id number] Univers 10:00:00 10:00:00 HAONDA anastaciay o [facility] 2020-10-27 2020-10-27 Telephone [facility] 1.2.840.114 [id number] Univers 00:00:00 00:00:00 Inez Langston [employer]ADER 350.1.13.10 it y of [facility] 4.2.7.2.686 Elio as MATERNAL [id number] [facility] & [address] 2020-10-26 2020-10-26 [facility] [id number] Univers 15:30:00 15:30:00 [facility] 2020-10-26 2020-10-26 [facility] [id number] Univers 15:30:00 15:30:00 INEZ [facility] 2020-10-26 2020-10-26 Office [facility] [id number] [id number] Univers 14:29:31 14:57:36 Visit Inez Langston [employer]ER 350.1.13.10 it y of [facility] 4.2.7.2.686 Elio as MATERNAL [phone] [facility] & CHILD [address] [place] [address] 2020-10-26 2020-10-26 Orders Doctor PERI 1.2.840.114 [id number] Univers 00:00:00 00:00:00 Only Unassigned, MOISÉS 350.1.13.10 ity of [place] [facility] 4.2.7.2.686 Elio as [phone] [address] 2020-10-25 2020-10-25 [facility] 1.2.840.114 [id number] Univers 06:30:53 23:59:00 Encounter Terri HAYES 350.1.13.10 ity of [place] [phone] Wi luciano JHA 815 [facility] 2020-10-25 2020-10-25 Outpatient R AKINSIPE, [facility] [place] [id number] Univers 00:00:00 23:59:00 TERRI ity o f [facility] 2020-10-25 2020-10-25 Outpatient R AKINSIPE, [facility] [place] [id number] Univers 00:00:00 23:59:00 TERRI ity o f [facility] 2020-10-25 2020-10-25 Outpatient R AKINSIPE, [facility] [place] [id number] Univers 00:00:00 00:00:00 TERRI ity o [facility] 2020-10-20 2020-10-20 Outpatient R AKINAMITAPE, [facility] [place] [id number] [id number] Univers 14:30:00 14:30:00 TERRI oneil o [facility] 2020-10-20 2020-10-20 Office [facility] [id number] Univers 08:18:28 09:27:15 Visit Terri Garcia [employer] 350.1.13.10 ity of REGIONAL 4.2.7.2.686 Elio as MATERNAL [phone] Med ical & CHILD [address] [place] [address] 2020-10-20 2020-10-20 Orders Doctor PERI 1.2.840.114 [id number] Univers 00:00:00 00:00:00 Only Unassigned, MOISÉS 350.1.13.10 ity of [place] [facility] 4.2.7.2.686 Elio as [phone] [address] 2020-10-16 2020-10-[address] [facility] [id number] Univers 00:00:00 00:00:00 Patient ST[employer] GRADER 350.1.13.10 it y of Does Not REGION[place]2.[place] MATERNAL [id number] Med ical & CHILD [address] [place] [address] 2019-11-16 2019-11-16 Telephone Martinez [facility] [id number] Univers 00:00:00 00:00:00 Any [facility] 350.1.13.10 i ty of Mode 4.2.7.2.686 Elio as Professio [phone] [address] Office [facility] 2019-11-16 2019-11-16 Telephone Pob1, Acute [facility] 1.2.840.114 [id number] Univers 00:00:00 00:00:00 Care [facility] 350.1.13.10 ity of Mode 4.2.7.2.686 Elio as Professio [phone] [address] Office Building [facility] 2019-11-11 2019-11-11 Office Pob1, Acute Care Clinic [facility] 1. 2.840.114 [id number] Univers 09:53:53 11:56:02 Visit Any [facility] 350.1.13.10 ity of Mode 4.2.7.2.686 Elio as Professio [phone] [address] Office [facility] One 2019-11-11 2019-11-11 Outpatient R [facility] [place] [id number] Univers 09:20:00 09:20:00 ity [facility] 2019-10-18 2019-10-18 [facility] [id number] Univers 14:00:00 14:00:00 LAURA [facility] Results Test Description Test Time Test Comments Results Result Comments Source CBC WITH DIFF 2022-08-28 04:29:12 Test Item Value Reference Range Interpretation Comme nts WBC (test code = 6690-2) See_Comment [A utomated message] The system which ge nerated this result transmit rogelio reference range: 4.30 - 1 1.10 10*3/?L. The reference r alec was not used to interpr et this result as normal/abnor mal. RBC (test code = 789-8) See_Comment [Au tomated message] The system which ge nerated this result transmit rogelio reference range: 3.93 - 5 .25 10*6/?L. The reference r alec was not used to interpr et this result as normal/abnor mal. HGB (test code = 718-7) 11.8 g/dL 11.6-15.0 HCT (test code = 4544-3) 34.3 % 35.7-45.2 L MCV (test code = 787-2) 85.5 fL 80.6-95.5 MCH (test code = 785-6) 29.4 pg 25.9-32.8 MCHC (test code = 786-4) 34.4 g/dL 31.6-35.1 RDW-SD (test code = 44960-8) 39.6 fL 39.0-49.9 RDW-CV (test code = 788-0) 12.7 % 12.0-15.5 PLT (test code = 777-3) See_Comment [Au tomated message] The system which ge nerated this result transmit rogelio reference range: 166 - 35 8 10*3/?L. The reference range was not used to interpret th is result as normal/abnormal . MPV (test code = 29568-7) 8.8 fL 9.5-12.9 L NRBC/100 WBC (test code = See_Comment [ Automated message] The 7951398397) system which ge nerated this result transmit rogelio reference range: 0.0 - 10 .0 /100 WBCs. The reference r alec was not used to interpr et this result as normal/abnor mal. NRBC x10^3 (test code = See_Comment [Au tomated message] The 4655356430) system which ge nerated this result transmit rogelio reference range: 10*3/?L. The reference range was not u sed to interpret this result as normal/abnormal . GRAN MAT (NEUT) % (test code 66.2 % = 770-8) IMM GRAN % (test code = 0.50 % 6942317729) LYMPH % (test code = 736-9) 27.1 % MONO % (test code = 5905-5) 4.9 % EOS % (test code = 713-8) 0.9 % BASO % (test code = 706-2) 0.4 % GRAN MAT x10^3(ANC) (test 5.29 10*3/uL 1.88-7.09 code = 3849727560) IMM GRAN x10^3 (test code = 0.04 10*3/uL 0.00-0.06 5018513144) LYMPH x10^3 (test code = 2.16 10*3/uL 1.32-3.29 731-0) MONO x10^3 (test code = 0.39 10*3/uL 0.33-0.92 742-7) EOS x10^3 (test code = 0.07 10*3/uL 0.03-0.39 711-2) BASO x10^3 (test code = 0.03 10*3/uL 0.01-0.07 704-7) Lab Interpretation (test Abnormal code = 48815-5) [facility]. METABOLIC PANEL ([id number])2022-08-28 04:02:10 Test Item Value Reference Range Interpretation Comments NA (test code = 139 mmol/L 135-145 9873660433) K (test code = 4.1 mmol/L 3.5-5.0 0740500631) CL (test code = 102 mmol/L 98-108 9965699600) CO2 TOTAL (test code 26 mmol/L 23-31 = 4526740303) AGAP (test code = 2-16 4369181061) BUN (test code = 15 mg/dL 7-23 1555225388) GLUCOSE (test code = 75 mg/dL 70-110 9691653150) CREATININE (test code 0.85 mg/dL 0.50-1.04 = 8490148007) TOTAL BILI (test code 0.4 mg/dL 0.1-1.1 = 8936623593) CALCIUM (test code = 8.7 mg/dL 8.6-10.6 3203181527) T PROTEIN (test code 7.7 g/dL 6.3-8.2 = 2546772297) ALBUMIN (test code = 4.6 g/dL 3.5-5.0 8341700334) ALK PHOS (test code = 62 U/L 34-122 8933698617) ALTv (test code = 17 U/L 5-35 1742-6) AST(SGOT) (test code 21 U/L 13-40 = 3099347034) eGFR (test code = mL/min/1.73m2 7342201705) JADEN (test code = JADEN) Association of [...] or urine or abnormalities in imaging tests). [facility] Test Item Value Reference Range Interpretation Comments LIPASE (test code = 3306064037) 82 U/L 0-220 Lab Interpretation (test code = Normal 73737-9) [facility]OLIC PAN[facility] ([id number])2022-08-24 04:21:59 Test Item Value Reference Range Interpretation Comments NA (test code = 136 mmol/L 135-145 2733943791) K (test code = 3.9 mmol/L 3.5-5.0 2266831747) CL (test code = 98 mmol/L 98-108 5416358223) CO2 TOTAL (test code 31 mmol/L 23-31 = 1550609873) AGAP (test code = 2-16 5558488327) BUN (test code = 21 mg/dL 7-23 9037437906) GLUCOSE (test code = 91 mg/dL 70-110 0553766992) CREATININE (test code 0.77 mg/dL 0.50-1.04 = 5011212919) TOTAL BILI (test code 0.4 mg/dL 0.1-1.1 = 7591108947) CALCIUM (test code = 9.0 mg/dL 8.6-10.6 6224243823) T PROTEIN (test code 7.5 g/dL 6.3-8.2 = 9857227108) ALBUMIN (test code = 4.3 g/dL 3.5-5.0 4998852888) ALK PHOS (test code = 70 U/L 34-122 3230277036) ALTv (test code = 15 U/L 5-35 2-6) AST(SGOT) (test code 19 U/L 13-40 = 1006546345) eGFR (test code = mL/min/1.73m2 1689003930) JADEN (test code = JADEN) Association of [...] or urine or abnormalities in imaging tests). [facility] 04:21:59 Test Item Value Reference Range Interpretation Comments LIPASE (test code = 5759273039) 66 U/L 0-220 Lab Interpretation (test code = Normal 19958-7) [facility] [id number] 03:50:59 Test Item Value Reference Range Interpretation Comments WBC (test code = See_Comment [Automated 6890-2) message] The sy stem which generated this [...] as normal/abnormal . HGB (test code = 12.9 g/dL 11.6-15.0 718-7) HCT (test code = 38.7 % 35.7-45.2 4544-3) MCV (test code = 86.2 fL 80.6-95.5 787-2) MCH (test code = 28.7 pg 25.9-32.8 785-6) MCHC (test code = 33.3 g/dL 31.6-35.1 786-4) RDW-SD (test code = 39.7 fL 39.0-49.9 02990-7) RDW-CV (test code = 12.7 % 12.0-15.5 788-0) PLT (test code = See_Comment [Automated 777-3) message] The sy stem which generated this result transmitted reference range : 166 - 358 10*3/ ?L. The reference r alec was not used to interpret this result as normal/abnormal . MPV (test code = 8.6 fL 9.5-12.9 L 88980-7) NRBC/100 WBC (test See_Comment [Automat ed code = 5889921792) message] The system which generated this result transmitted reference range : 0.0 - 10.0 /100 WBCs. The refer ence range was not u sed to interpret th is result as normal/abnormal . NRBC x10^3 (test code See_Comment [Auto mated = 2104923460) message] The s ystem which generated this result transmitted reference range : 10*3/?L. The reference range was not used to interpret this result as normal/abnormal . GRAN MAT (NEUT) % 62.8 % (test code = 770-8) IMM GRAN % (test code 0.30 % = 3572146099) LYMPH % (test code = 29.7 % 736-9) MONO % (test code = 6.3 % 5905-5) EOS % (test code = 0.5 % 713-8) BASO % (test code = 0.4 % 706-2) GRAN MAT x10^3(ANC) 4.85 10*3/uL 1.88-7.09 (test code = 2683888939) IMM GRAN x10^3 (test 0.00-0.06 code = 2770768627) LYMPH x10^3 (test code 2.29 10*3/uL 1.32-3.29 = 731-0) MONO x10^3 (test code 0.49 10*3/uL 0.33-0.92 = 742-7) EOS x10^3 (test code = 0.04 10*3/uL 0.03-0.39 711-2) BASO x10^3 (test code 0.03 10*3/uL 0.01-0.07 = 704-7) Lab Interpretation Abnormal (test code = 50374-3) [facility] [id number] 03:42:00 Test Item Value Reference Range Interpretation Comments POCT PREG (test code = 1605) negative On board controls acceptable with positive C Line (test code = 3574) POCT PREG LOT # (test code = 3575) [id number] POCT PREG TEST DATE (test 11/23/2023 code = 3576) Lab Interpretation (test code = Normal 36042-2) [facility]"
--- NOTE | 2022-10-23 13:14 | RAD REPORT ---
EXAM DESCRIPTION: RAD - Chest Single View - 10/23/2022 1:07 pm CLINICAL HISTORY: CHEST PAIN Chest pain. COMPARISON: Chest Single View dated 08/10/2016 FINDINGS: Portable technique limits examination quality. The lungs are grossly clear. The heart is normal in size. No displaced fractures. IMPRESSION: No acute intrathoracic process suspected.
[2022-10-23] MEDS ORDERED: ASPIRIN 81 MG CHEWABLE TABLET ONE (13:39)
[2022-10-23 14:06] LABS: Absolute Lymphocytes (CBC) 1.6 K/uL (0.7-4.9); Hematocrit 35.1 % (36.0-45.0); MCV 86.4 fL (80-100); MPV 6.7 fL (7.6-11.3); RBC Red Blood Cell Count 4.06 M/uL (3.86-4.86)
[2022-10-23 14:17] LABS: BUN Blood Urea Nitrogen 17 mg/dL (7-18); Bicarbonate 30 mmol/L (21-32); Glomerular Filtration Rate 104 ml/min (=/>90); Glucose Level 87 mg/dL (74-106); NT PRO-BNP 20 pg/mL (<125); Potassium 3.6 mmol/L (3.5-5.1); Sodium Level 139 mmol/L (136-145)
[2022-10-23 14:23] LABS: Troponin High Sensitivity < 3.0 pg/mL (<58.9)
--- NOTE | 2022-10-23 14:42 | EDPHYS ---
Physician Documentation [facility] Name: Lulu Barreto Age: 42 yrs Sex: Female : 1980 Arrival Date: 10/23/2022 Time: 12:20 Bed 23 Private MD: ED Physician Lazaro Andres HPI: 10/23 12:30 This 42 yrs old Female presents to ER via Ambulatory with complaints of Chest Pain. jh7 12:30 Onset: The symptoms/episode began/occurred 1 week(s) ago, and became worse last night. jh7 Associated signs and symptoms: Pertinent negatives: abdominal pain, congestion, cough, dysuria, fever, nasal discharge, shortness of breath, vomiting, wheezing. 42-year-old female reports chest pain beginning a week ago and worsening last night. Describes it as squeezing her heart and reports that it radiates to her left shoulder. Pain is nonreproducible.. 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 - Social history:: Smoking status: Patient denies any tobacco usage or history of. ROS: 12:30 Constitutional: Negative for fever, chills, and weight loss, Eyes: Negative for injury, jh7 pain, redness, and discharge, ENT: Negative for injury, pain, and discharge, Neck: Negative for injury, pain, and swelling, Respiratory: Negative for shortness of breath, cough, wheezing, and pleuritic chest pain, Abdomen/GI: Negative for abdominal pain, nausea, vomiting, diarrhea, and constipation, Back: Negative for injury and pain, MS/Extremity: Negative for injury and deformity, Skin: Negative for injury, rash, and discoloration, Neuro: Negative for headache, weakness, numbness, tingling, and seizure. 12:30 Cardiovascular: Positive for chest pain, Negative for orthopnea, palpitations. 12:30 All other systems are negative. Exam: 12:30 Constitutional: This is a well developed, well nourished patient who is awake, alert, jh7 and in no acute distress. Head/Face: Normocephalic, atraumatic. Eyes: Pupils equal round and reactive to light, extra-ocular motions intact. Lids and lashes normal. Conjunctiva and sclera are non-icteric and not injected. Cornea within normal limits. Periorbital areas with no swelling, redness, or edema. Neck: Trachea midline, no thyromegaly or masses palpated, and no cervical lymphadenopathy. Supple, full range of motion without nuchal rigidity, or vertebral point tenderness. No Meningismus. Cardiovascular: Regular rate and rhythm with a normal S1 and S2. No gallops, murmurs, or rubs. Normal PMI, no JVD. No pulse deficits. Respiratory: Lungs have equal breath sounds bilaterally, clear to auscultation and percussion. No rales, rhonchi or wheezes noted. No increased work of breathing, no retractions or nasal flaring. Abdomen/GI: Soft, non-tender, with normal bowel sounds. No distension or tympany. No guarding or rebound. No evidence of tenderness throughout. Back: No spinal tenderness. No costovertebral tenderness. Full range of motion. Skin: Warm, dry with normal turgor. Normal color with no rashes, no lesions, and no evidence of cellulitis. MS/ Extremity: Pulses equal, no cyanosis. Neurovascular intact. Full, normal range of motion. Neuro: Awake and alert, GCS 15, oriented to person, place, time, and situation. Motor strength 5/5 in all extremities. Sensory grossly intact. Normal gait. Vital Signs: 12:49 BP 124 / 86; Pulse 86; Resp 16; Temp 98.9(TE); Pulse Ox 100% on R/A; Weight 67.59 kg; ss Height 5 ft. 3 in. (160.02 cm); Pain 6/10; 12:49 Body Mass Index 26.39 (67.59 kg, 160.02 cm) ss MDM: 12:24 Patient medically screened. [facility] 14:35 Differential diagnosis: pneumonia Acute [place], pleurisy, costochondritis, pulmonary jh7 embolism. Data reviewed: vital signs, nurses notes, lab test result(s), EKG, radiologic studies, plain films. I considered the following discharge prescriptions or medication management in the emergency department Medications were administered in the Emergency Department. See MAR. Independent interpretation of the following test(s) in the Emergency Department EKG: See my EKG interpretation above. Test considered but Not performed: CT: Negative D-dimer, PERC 0. Historians other than the Patient: Spouse/Significant Other: . Care significantly affected by the following chronic conditions: Fibromyalgia. Scoring Tools HEART Score: Total Score = 0. 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 Response to treatment: the patient's symptoms have markedly improved after treatment. ED course: The patient states that her doctor recently diagnosed her with fibromyalgia last week and that her chest pain has actually been occurring for the past 2 weeks. Advised to follow-up with cardiology.. 10/23 12:46 Order name: Basic Metabolic Panel; Complete Time: 14:30 [facility] 10/23 12:46 Order name: CBC with Diff; Complete Time: 14:30 [facility] 10/23 12:46 Order name: D-Dimer; Complete Time: 14:30 [facility] 10/23 12:46 Order name: NT PRO-BNP; Complete Time: 14:30 [facility] 10/23 12:46 Order name: Troponin HS; Complete Time: 14:30 [facility] 10/23 12:46 Order name: XRAY Chest (1 view); Complete Time: 13:19 [facility] 10/23 12:46 Order name: EKG; Complete Time: 12:48 [facility] 10/23 12:46 Order name: EKG - Nurse/Tech; Complete Time: 13:30 [facility] 10/23 12:46 Order name: IV Saline Lock; Complete Time: 13:48 [facility] 10/23 12:46 Order name: Labs collected and sent; Complete Time: 13:48 [facility] EC: Rate is 80 beats/min. Rhythm is regular. QRS [place] is Normal. MD interval is normal at [facility] 118 msec. QRS interval is normal at 76 msec. QT interval is normal at 360 msec. No Q waves. T waves are Normal. No ST changes noted. Clinical impression: Normal ECG. Administered Medications: 13:33 Drug: Aspirin Chewable Tablet 324 mg Route: PO; jh5 Disposition Summary: 10/23/22 14:41 Discharge Ordered Location: Home [facility] Problem: an ongoing problem [facility] Symptoms: have improved [facility] Condition: Stable [facility] Diagnosis - Chest pain, unspecified [facility] Followup: [facility] - With: Duran Gagnon MD - When: 1 - 2 days - Reason: Recheck today's complaints Discharge Instructions: - Discharge Summary Sheet 7 - Nonspecific Chest Pain, Adult 7 - Chest Wall Pain 7 - Electrocardiogram [facility] - Aspirin and Your Heart [facility] Forms: - Work release form marika - Medication Reconciliation Form [facility] - Thank You Letter [facility] Signatures: Dispatcher [employer] Floresita Cook, RN RN ss Sharri Rodriguez RN RN jh5 Rupa Holland, STORAGE ENGINEER STORAGE ENGINEER [facility]
--- NOTE | 2022-10-23 14:42 | ER ---
Nurse's Notes [facility] Name: Lulu Barreto Age: 42 yrs Sex: Female : 1980 Arrival Date: 10/23/2022 Time: 12:20 Bed 23 Private MD: Diagnosis: Chest pain, unspecified Presentation: 10/23 12:49 Chief complaint: Patient states: "Last week it started with pain in my head and down my ss neck and then my heart started hurting. Then it went away, but last night it felt like there was a brick on my chest and it felt like it was squeezing and it's bothering me again." Pt reports symptoms began 2 weeks ago. Coronavirus screen: Client denies travel out of the [place] in the last 14 days. Ebola Screen: Patient denies exposure to infectious person. Patient denies travel to an Ebola-affected area in the 21 days before illness onset. Initial Sepsis Screen: Does the patient meet any 2 criteria? No. Patient's initial sepsis screen is negative. Does the patient have a suspected source of infection? No. Patient's initial sepsis screen is negative. Risk Assessment: Do you want to hurt yourself or someone else? Patient reports no desire to harm self or others. Onset of symptoms was October 09, 2022. 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 - Social history:: Smoking status: Patient denies any tobacco usage or history of. Vital Signs: 12:49 BP 124 / 86; Pulse 86; Resp 16; Temp 98.9(TE); Pulse Ox 100% on R/A; Weight 67.59 kg; ss Height 5 ft. 3 in. (160.02 cm); Pain 6/10; 12:49 Body Mass Index 26.39 (67.59 kg, 160.02 cm) ED Course: 12:20 Patient arrived in ED. mr 12:24 Rupa Holland FNP is [facility]. jh7 12:24 Lazaro Andres MD is Attending Physician. 7 12:51 Triage completed. ss 12:52 Arm band placed on left wrist. ss 13:09 XRAY Chest (1 view) In Process Unspecified. EDMS 14:41 Duran Gagnon MD is Referral Physician. 7 Administered Medications: 13:33 Drug: Aspirin Chewable Tablet 324 mg Route: PO; 5 Outcome: 14:41 Discharge ordered by . 7 15:01 Patient left the ED. [facility] Signatures: Dispatcher [employer] EDFL Mary Raman mr JoséFloresita, RN RN Sharri Rodriguez RN RN [facility] Leatha Diallo RN RN [facility] Rupa Holland FNP DEPARTMENT HELPER [facility]
[2022-10-23 16:03] VITALS: BP 124/86; TEMP 98.9; O2SAT 100
--- NOTE | 2022-10-24 17:29 | EKG ---
Test Date: 2022-10-23 Test Time: 13:01:48 Hearing Therapist: EL MEASUREMENT RESULTS: Intervals: Rate: 80 AL: 118 QRSD: 76 QT: 360 QTc: 415 [place]: P: 55 AL: 118 QRS: 63 T: 40 INTERPRETIVE STATEMENTS: Normal sinus rhythm Normal ECG Compared to ECG 08/10/2016 06:55:13 No significant changes Electronically Signed On 10-24-22 17:26:25 JUDICIAL ASSISTANT by Duran Gagnon
== END 2022-10-23 15:01 | disposition home or self-care (01) ==
LOC: ER 12:16
DX: R07.89 Other chest pain (principal); Z88.0 Allergy status to penicillin
CPT/HCPCS: 36415; 71045; 80048; 83880; 84484; 85025; 85379; 93005

== ENCOUNTER 2023-02-12 14:31 | Emergency (ER) | payer SELFPAY ==
--- OUTSIDE RECORDS SUMMARY | 2023-02-12 14:36 | XMS REPORT | Continuity of Care Document ---
:1980 Author Organization [facility] t Address [address] [facility] [address] [place] [address] Care Team Providers Name Role Phone [facility] Primary Care Physician Unavailable CHANDRAKANT HERNANDEZ Attending Clinician Unavailable Chandrakant Hernandez MD Attending Clinician Doctor Unassigned, [place] Attending Clinician Unavailable NGUYEN GUAJARDO Attending Clinician Unavailable Nguyen Guajardo MD Attending Clinician INEZ GRACIA Attending Clinician Unavailable INEZ GRACIA Attending Clinician Unavailable CARY CABELLO Attending Clinician Unavailable Cary Matthews Attending Clinician Provider, Ang-Rmchp Temp Attending Clinician Unavailable LAURA PELAYO Attending Clinician Unavailable Laura Pelayo NP Attending Clinician Terri Ireland Attending Clinician [phone] TERRI TUTTLE Attending Clinician Unavailable Kitty Clark RN Attending Clinician Unavailable Inez Gabriel Attending Clinician Taryn ANGELES, Lois S Attending Clinician Dedra Felix DO Attending Clinician INEZ FELIX Attending Clinician Unavailable Pcp, Patient Does Not Have A Attending Clinician [phone] Any Herrera Attending Clinician Pob1, [facility] Attending Clinician Unavailable LAURA MCLEAN Attending Clinician Unavailable CHANDRAKANT HERNANDEZ Admitting Clinician Unavailable Payers Payer Name Policy Type Policy Number Effective Date Expiration Date S alen SULTANAETTER FROM [id number] 2021 [facility] 00:00:00 [place] [place] [facility] [id number] 2022 [place] [address] 00:00:00 COMMERCIAL [id number] 2021 NON-CONTRACT 00:00:00 GENERIC Problems Condition Condition Condition Status Onset Resolution Last Treating Co mments Source Name Details Category Date Date Treatment Clinician Date Gastroente Gastroente Disease Active 2021-08 U nivers ritis ritis 2-30 ity of 00:00: [address] Branch Vomiting Vomiting Disease Active 2021-08 Unive rs and and 2-30 ity of diarrhea diarrhea 00:00: [address] Branch Gonorrhea Gonorrhea Disease Active Uni vers 3-05 ity of 00:00: [address] Branch Cervical Cervical Disease Active Overview: [...] in 2-26 ity of breast breast 00:00: [place] [address] [facility] Branch Abnormal Abnormal Disease Active 2015-08 Unive rs menstrual menstrual 0-03 ity of cycle cycle 00:00: [place] [address] Medical Branch History of History of Disease [...] 00:00: [place] reaction 00 Medical s Branch Social History Social Habit Start Date Stop Date Quantity Comments Source History SDOH University o f Alcohol Frequency [place] M edical Branch History SDOH University o f Alcohol Std [place] Medical Drinks Branch History SDOH University o f Alcohol Binge [place] Medic al Branch Exposure to 2023-01-08 2023-01-18 Not sure University of SARS-CoV-2 00:00:00 09:41:00 [facility] (event) Branch Alcohol intake 2023-01-18 2023-01-18 Current drinker Unive rsity of 00:00:00 00:00:00 of alcohol [facility] (finding) Branch Tobacco use and 2022-03-05 2022-03-05 Smokeless tobacco Un iversity of exposure 00:00:00 00:00:00 non-user [facility] Alcohol Comment 2016-05-27 2016-05-27 occasional-holida Un iversity of 00:00:00 00:00:00 [facility] Sex Assigned At [birth year] Universit y of 00:00:00 00:00:00 [facility] Smoking Status Start Date Stop Date Source Never smoked tobacco [facility] Medications Ordered Filled Start Stop Current Ordering Indication Dosage Frequency Signature Comments Components Source Medication Medication Date Date Medication? Clinician (SIG) Name Name ibuprofen Yes [id number] 600mg Take 1 Univers 600 mg 5-27 tablet by ity of tablet 00:00: mouth [place] 00 every 6 Medical (six) Branch hours as needed for Pain (scale 4-6). NaCl 0.9% 2022- No 1000mL at 999 Uni vers (NS) bolus 08-28-04 mL/hr, ity of infusion 07:45: 19:44 1,000 mL, Elio as 1,000 mL 00 :00 IV Medical Piggyback, Branch ONCE, 1 dose, On Fri08/28/22 at 0145, STAT iopamidol 2022- No [id number] 75mL 75 mL, U nivers (ISOVUE 08-28 [...] 1000mL at 999 Uni vers (NS) bolus 08-28-04 mL/hr, ity of infusion 03:30: 06:07 1,000 mL, Elio as 1,000 mL 00 :00 IV Medical Piggyback, Branch ONCE, 1 dose, On Fri08/27/22 at 2130, STAT ondansetron Yes [id number] 4mg Take 1 Univers 4 mg -04 tablet by ity of disintegrat 00:00: mouth [place] ing tablet 00 every 8 Medica l (eight) Branch hours as needed for Nausea and Vomiting (N/V). ondansetron Yes [id number] 4mg Take 1 Univers 4 mg -04 tablet by ity of disintegrat 00:00: mouth [place] ing tablet 00 every 8 Medica l (eight) Branch hours as needed for Nausea and Vomiting (N/V). ondansetron 0 2022- No [id number] 4mg Take 1 Univers 4 mg 08-28-27 tablet by ity of disintegrat 00:00: 00:00 [place] tablet 00 :00 every 8 Medica l (eight) Branch hours as needed for Nausea and Vomiting (N/V). levoFLOXaci 2022- No [id number] 500mg Take 1 Univers n -11 23-14 tablet by ity of (LEVAQUIN) 00:00: 05:59 mouth [place] 500 mg 00 :00 the Medical tablet morning Branch for 9 days. dicyclomine 2021-08 No 20mg 20 mg, Uni vers (BENTYL) 08-24 Oral, ity of tablet 20 03:15: 03:40 ONCE, 1 [place] mg [place] :00 dose, On Medical Fri Branch 08/23/22 at 2115, SHERLEY ondansetron 2021-08 No 4mg 4 mg, Slow Univers (ZOFRAN 08-24 IV Push, ity of (PF)) 03:15: 03:39 ONCE, 1 [place] injection 4 00 :00 dose, On Medi marcus mg Fri Branch 08/23/22 at 2115, SHERLEY NaCl 0.9% 2021-08 No 1000mL at 999 Uni vers (NS) bolus -31 mL/hr, ity of infusion 03:15: 04:43 1,000 mL, Elio as 1,000 mL 00 :00 IV Medical Infusion, Branch ONCE, 1 dose, On 08/23/22 at 2115, STAT ondansetron 2021-08- No [id number] 4mg Take 1 Univers 4 mg -15 tablet by ity of disintegrat 00:00: 05:59 [place] tablet 00 :00 every 8 Medica l (eight) Branch hours as needed for Nausea and Vomiting (N/V) for up to 15 days. ondansetron 2021-08- No [id number] 4mg Take 1 Univers 4 mg 2-30 -15 tablet by ity of disintegrat 00:00: 05:59 [place] tablet 00 :00 every 8 Medica l (eight) Branch hours as needed for Nausea and Vomiting (N/V) for up to 15 days. dicyclomine 2021-08- No [id number] 20mg Take 1 Univers 20 mg 2-30 01-10 tablet by ity of tablet 00:00: 05:59 mouth 2 [place] 00 :00 (two) Medical times Branch daily as needed for Abdominal pain for up to 10 days. dicyclomine 2021-08- No [id number] 20mg Take 1 Univers 20 mg 2-30 -10 tablet by ity of tablet 00:00: 05:59 mouth 2 [place] 00 :00 (two) Medical times Branch daily as needed for Abdominal pain for up to 10 days. No known No No known Unive rs medications 7-12 medication it y of 14:36: s [address] No known 2021-0 No No known Unive rs medications 7-12 medication it y of 14:36: s [address] No known No No known Unive rs medications 7-12 medication it y of 14:36: s [address] No known No No known Unive rs medications 7-12 medication it y of 14:36: s [address] Immunizations Ordered Filled Immunization Date Status Comments [facility] e Immunization Name Name [facility] 2022-03-05 Completed University of 00:00:00 [facility] 2022-03-05 Completed University of 00:00:00 [facility] 2022-03-05 Completed University of 00:00:00 [facility] 2022-03-05 Completed University of 00:00:00 [facility] 2022-03-05 Completed University of 00:00:00 [facility] 2022-03-05 Completed University of 00:00:00 [facility] 2022-03-05 Completed University of 00:00:00 [facility] 2022-03-05 Completed University of 00:00:00 [facility] Branch Td 2018-11-29 Completed University of 00:00:00 [facility] Branch Td 2018-11-29 Completed University of 00:00:00 [place] [facility] Td 2018-11-29 Completed University of 00:00:00 [place] [facility] Td 2018-11-29 Completed University of 00:00:00 [facility] Branch TD, NOS 2018-11-29 Completed University of 00:00:00 [place] [facility] TD, NOS 2018-11-29 Completed University of 00:00:00 [place] [facility] TD, NOS 2018-11-29 Completed University of 00:00:00 [facility] Branch TD, NOS 2018-11-29 Completed University of 00:00:00 [facility] Branch TDAP 2014-10-25 Completed University of 00:00:00 [facility] Branch TDAP 2014-10-25 Completed University of 00:00:00 [facility] Branch TDAP 2014-10-25 Completed University of 00:00:00 [facility] Branch TDAP 2014-10-25 Completed University of 00:00:00 [place] [facility] TDAP 2014-10-25 Completed University of 00:00:00 [place] [facility] TDAP 2014-10-25 Completed University of 00:00:00 [place] [facility] TDAP 2014-10-25 Completed University of 00:00:00 [place] [facility] TDAP 2014-10-25 Completed University of 00:00:00 [facility] Branch Td 1993-10-25 Completed University of 00:00:00 [facility] Branch Td 1993-10-25 Completed University of 00:00:00 [facility] Branch Td 1993-10-25 Completed University of 00:00:00 [place] [facility] Td 1993-10-25 Completed University of 00:00:00 [facility] Branch TD, NOS 1993-10-25 Completed University of 00:00:00 [facility] Branch TD, NOS 1993-10-25 Completed University of 00:00:00 [facility] Branch TD, NOS 1993-10-25 Completed University of 00:00:00 [facility] Branch TD, NOS 1993-10-25 Completed University of 00:00:00 [facility] Branch Vital Signs Vital Name Observation Time Observation Value Comments Source Systolic blood 2023-01-18 16:51:00 121 mm[Hg] Univer sity of pressure [facility] Branch Diastolic blood 2023-01-18 16:51:00 82 mm[Hg] Unive rsity of pressure [place] [facility] Heart rate 2023-01-18 16:51:00 97 /min Universi ty of [place] [facility] Respiratory rate 2023-01-18 16:51:00 16 /min Univ ersity of [place] [facility] Oxygen saturation in 2023-01-18 16:51:00 100 /min University of Arterial blood by [facility] Pulse oximetry Branch Body temperature 2023-01-18 14:31:00 36.67 Chanel Univ ersity of [place] [facility] Body height 2023-01-18 14:31:00 157.5 cm Universi ty of [place] [facility] Body weight 2023-01-18 14:31:00 58.968 kg Universi ty of [place] [facility] BMI 2023-01-18 14:31:00 23.78 kg/m2 Universi ty of [place] [facility] Systolic blood 2022-08-28 06:06:07 99 mm[Hg] Univer sity of pressure [place] [facility] Diastolic blood 2022-08-28 06:06:07 70 mm[Hg] Unive rsity of pressure [place] [facility] Heart rate 2022-08-28 06:06:07 95 /min Universi ty of [place] [facility] Respiratory rate 2022-08-28 06:06:07 18 /min Univ ersity of [place] [facility] Oxygen saturation in 2022-08-28 06:06:07 100 /min University of Arterial blood by [facility] Pulse oximetry Branch Body temperature 2022-08-28 02:33:00 37 Chanel Univ ersity of [place] [facility] Body height 2022-08-28 02:33:00 160 cm Universi ty of [place] [facility] Body weight 2022-08-28 02:33:00 70.308 kg Universi ty of [place] [facility] BMI 2022-08-28 02:33:00 27.46 kg/m2 Universi ty of [place] [facility] Systolic blood 2022-08-24 02:32:00 123 mm[Hg] Univer sity of pressure [place] [facility] Diastolic blood 2022-08-24 02:32:00 82 mm[Hg] Unive rsity of pressure [place] [facility] Heart rate 2022-08-24 02:32:00 97 /min Universi ty of [place] [facility] Body temperature 2022-08-24 02:32:00 37.22 Chanel Univ ersity of [place] [facility] Respiratory rate 2022-08-24 02:32:00 18 /min [facility] Body height 2022-08-24 02:32:00 160 cm [facility] Body weight 2022-08-24 02:32:00 70.308 kg [facility] BMI 2022-08-24 02:32:00 27.46 kg/m2 [facility] Oxygen saturation in 2022-08-24 02:32:00 100 /min [facility] Arterial blood by [facility] Pulse oximetry Branch Procedures Procedure Date / Time Performing Clinician Source Performed CT CERVICAL SPINE WO 2023-01-18 15:38:46 Chandrakant Hernandez [facility] CT HEAD WO CONTRAST 2023-01-18 15:38:46 Chandrakant Hernandez [facility] AUTHORIZATION FOR 2022-09-30 06:01:00 Doctor Unassigned, No [facility] RELEASE OF PHI Name [facility] LACTIC ACID WHOLE BLOOD 2022-08-28 04:57:00 Chandrakant Hernandez [facility] CT ABDOMEN PELVIS W 2022-08-28 04:40:00 Chandrakant Hernandez [facility] CBC WITH DIFF 2022-08-28 04:15:00 Chandrakant [facility] LIPASE 2022-08-28 03:31:00 Chandrakant [facility] COMP. METABOLIC PANEL 2022-08-28 03:31:00 Chandrakant Hernandez [facility] ([id number]) [facility] URINALYSIS 2022-08-28 03:31:00 Chandrakant [facility] CONSENT/REFUSAL FOR 2022-08-28 02:24:47 Doctor Unassigned, No [facility] DIAGNOSIS AND TREATMENT Name [facility] POCT TEST 2022-08-24 03:42:00 Nguyen Guajardo [facility] LIPASE 2022-08-24 03:37:00 Nguyen Guajardo [facility] COMP. METABOLIC PANEL 2022-08-24 03:37:00 Nguyen Guajardo [facility] ([id number]) Medical [place] CBC WITH DIFF 2022-08-24 03:37:00 Nguyen Guajardo [facility] URINALYSIS 2022-08-24 03:37:00 Nguyen Guajardo [facility] RAPID INFLUENZA A/B 2022-08-24 03:37:00 [facility] COVID-19 (ID NOW RAPID 2022-08-24 03:37:00 Nguyen Guajardo [facility] TESTING) Medical Branch NOTICE OF PRIVACY 2022-08-24 02:25:40 Doctor Unassigned, No [facility] PRACTICES Name Medical Branch CONSENT/REFUSAL FOR 2022-08-24 02:25:26 [facility] Name [facility] BI ULTRASOUND BREAST 2022-04-19 16:54:50 Inez Gracia [facility] COMPLETE LEFT [facility] BI DIAGNOSTIC 2022-04-19 15:45:17 Inez Gracia [facility] TOMOSYNTHESIS BILATERAL [facility] EXTERNAL PROVIDER 2022-03-11 05:01:00 Doctor Unassigned, No [facility] RECORDS Name [facility] Encounters Start End Encounter Admission Attending Care Care Encounter Source Date/Time Date/Time Type Type Clinicians Facility Department ID 2021-06-25 Emergency [facility] [id number] Univers 12:18:21 ity [facility] 2021-06-24 Emergency [facility] [id number] Univers 22:33:05 ity [facility] 2021-06-24 Emergency [facility] [id number] Univers 18:47:40 ity [facility] 2021-06-24 Emergency [facility] [id number] Univers [facility]23-01-18 2023-01-18 Emergency X MARY, NCANCA ERT [id number] Univers 09:37:00 11:55:00 CHANDRAKANT oneil [facility] 2023-01-18 2023-01-18 Emergency Mary, [facility] [id number] Univers 09:37:00 11:55:00 Chandrakant FERNANDO 350.1.13.10 i ty of [place] 4.2.7.2.686 [facility] [id number] [address] 2022-09-30 2022-09-30 Orders Doctor PERI 1.2.840.114 [id number] Univers 00:00:00 00:00:00 Only Unassigned, MOISÉS 350.1.13.10 ity of [place] [facility] 4.2.7.2.686 Elio [id number] [place] [address] Branch 2022-08-27 2022-08-28 Emergency X VASUT, [facility] ERT [id number] Univers 20:38:00 01:18:00 CHANDRAKANT ity [facility] 2022-08-27 2022-08-28 Emergency [facility] [id number] Univers 20:38:00 01:18:00 Chandrakant FERNANDO 350.1.13.10 i ty of [place] 4.2.7.2.686 [facility] [id number] [address] 2022-08-23 2022-08-23 Emergency [facility] ERT [id number] Univers 20:34:00 22:46:00 NGUYEN ity of [facility] 2022-08-23 2022-08-23 Emergency [facility] [id number] Univers 20:34:00 22:46:00 Nguyen Manjit FERNANDO 350.1.13.10 ity [facility] 4.2.7.2.686 [facility] [id number] [address] 2022-04-19 2022-04-19 Outpatient R INEZ GRACIA [facility] [id number] Univers 09:48:10 23:59:00 INEZ GRACIA of [facility] 2022-04-19 2022-04-19 Hospital FLORINDA Gracia 1.2.840.114 [id number] Univers 09:48:10 23:59:00 Encounter Inez Ricks EDNA 350.1.13.10 ity of [facility] 4.2.7.2.686 [place] [id number] [address] 2022-04-19 2022-04-19 [facility] FLORINDA Gracia 1.2.840.114 [id number] Univers 09:47:42 09:47:42 Encounter Inez Ricks [facility] 350.1.13.10 ity of [facility] 4.2.7.2.686 [place] [id number] [address] 2022-04-11 2022-04-11 Outpatient R DESTINEY [facility] [id number] Univers 10:00:00 10:00:00 HAONDA ity o f [facility] 2022-04-08 2022-04-08 Outpatient R [facility] [id number] Univers 13:30:00 13:30:00 ity [facility] 2022-04-08 2022-04-08 Outpatient R [facility] [id number] Univers 13:30:00 13:30:00 ity [facility] 2022-04-08 2022-04-08 [id number] Univers 13:30:00 13:30:00 CARY oneil o f [facility] 2022-04-01 2022-04-01 Outpatient R INEZ GRACIA [facility] [id number] Univers 00:00:00 00:00:00 INEZ GRACIA jhon [facility] 2022-04-01 2022-04-01 Outpatient R INEZ GRACIA [facility] [id number] Univers 00:00:00 00:00:00 INEZ GRACIA jhon [facility] 2022-03-15 2022-03-15 [facility] [id number] Univers 00:00:00 00:00:00 Cary Pastor [employer] 350.1.13.10 ity of [facility] 4.2.7.2.686 Elio as MATERNAL [id number] [facility] ical & CHILD [address] [place] [address] 2022-03-13 2022-03-13 Outpatient R DESTINEY [facility] [id number] Univers 10:00:00 10:00:00 HAONDA ity o f [facility] 2022-03-13 2022-03-13 Orders Doctor PERI 1.2.840.114 [id number] Univers 00:00:00 00:00:00 Only Unassigned, MOIS[place] 350.1.13.10 ity of [place] [facility] 4.2.7.2.686 Elio as [id number] [address] 2022-03-13 2022-03-13 Case Destiney [facility] 1.2.840.114 [id number] Univers 00:00:00 00:00:00 Management Cary Pastor [employer] C[employer] 350.1.13.10 ity of REGIONAL 4.2.7.2.686 Elio as MATERNAL [id number] [facility] & CHILD [address] [place] [address] 2022-03-11 2022-03-11 Orders Doctor PERI 1.2.840.114 [id number] Univers 00:00:00 00:00:00 Only Unassigned, MOISÉS 350.1.13.10 ity of [place] [facility] 4.2.7.2.686 Elio as [id number] [address] 2022-03-05 2022-03-05 Office Provider, LatishaRmchp [facility] 1 .2.840.114 [id number] Univers 13:45:00 15:29:53 Visit Inez Gracia [employer] 350.1.13.10 ity of REGIONAL 4.2.7.2.686 Elio as MATERNAL [id number] [facility] & [address] 2022-03-05 2022-03-05 Outpatient R INEZ GRACIA [facility] [id number] Univers 13:45:00 15:29:53 INEZ GRACIA [facility] 2022-03-05 2022-03-05 Outpatient R INEZ GRACIA [facility] [id number] Univers 13:45:00 13:45:00 INEZ GRACIA [facility] 2022-03-05 2022-03-05 Outpatient R INEZ GRACIA [facility] [id number] Univers 13:45:00 13:45:00 ADAMIAK[facility] 2022-03-05 2022-03-05 Orders Doctor PERI 1.2.840.114 [id number] Univers 00:00:00 00:00:00 Only Unassigned, MOISÉ[place] 350.1.13.10 [facility] 4.2.7.2.686 Elio as [id number] [facility] [address] [place] 2021-12-21 2021-12-21 Outpatient R [facility] [id number] Univers 20:20:00 20:20:00 ity of [facility] 2021-09-27 2021-09-27 Emergency X [facility] ERT [id number] Univers 11:15:00 15:02:00 LAURA oneil [facility] 2021-09-27 2021-09-27 Emergency [facility] [id number] Univers 11:15:00 15:02:00 Laura FERNANDO 350.1.13.10 ity [facility] 4.2.7.2.686 [place] [facility] [id number] [facility] 084 [place] 2021-09-27 2021-09-27 Orders Doctor PERI 1.2.840.114 [id number] Univers 00:00:00 00:00:00 Only Unassigned, MOISÉS 350.1.13.10 ity of [facility] 4.2.7.2.686 Elio as [id number] [address] 2021-05-03 2021-05-03 Office [facility] [id number] Univers 13:05:08 14:38:12 Visit Terri Garcia [employer] 350.1.13.10 ity of [facility] 4.2.7.2.686 Elio as MATERNAL [id number] Med ical & CHILD [address] [place] [address] 2021-05-03 2021-05-03 Outpatient R ANDREA [facility] [id number] Univers 13:15:00 13:15:00 TERRI oneil o f [facility] 2021-04-03 2021-04-03 Telephone Amber Vasquez 1.2.840.114 [id number] Univers 00:00:00 00:00:00 , Kitty Renee 350.1.13.10 ity of [place] [id number] [address] 2021-03-25 2021-03-25 Emergency [facility] [id number] Univers 23:08:00 23:46:00 Laura Fernando 350.1.13.10 ity of [place] 4.2.7.2.686 [place] [id number] [address] 2021-03-25 2021-03-25 Emergency X [facility] ERT [id number] Univers 23:08:00 23:46:00 LAURA oneil [facility] 2021-03-08 2021-03-08 [facility] 1.2.840.114 [id number] Univers 00:00:00 00:00:00 Terri Garcia [employer]FF[employer] CABLE 350.1.13.10 ity of [facility] 4.2.7.2.686 Elio as MATERNAL [id number] [facility] & CHILD [address] [place] [address] 2021-03-02 2021-03-02 Telephone [facility] 1.2.840.114 [id number] Univers 00:00:00 00:00:00 Inez Langston [employer]FFIC [employer] CABLE 350.1.13.10 it y of [facility] 4.2.7.2.686 Elio as MATERNAL [id number] [facility] & [address] 2021-02-07 2021-02-07 Outpatient R ANDREA [facility] [id number] Univers 13:15:00 13:15:00 TERRI oneil o f [facility] 2021-01-24 2021-01-24 Emergency [facility] [id number] 00:16:00 02:29:00 Lois Janett Noemi 350.1.13.10 [place] 4.2.7.2.686 [place] [id number] [facility] 2021-01-24 2021-01-24 Emergency [facility] [id number] Univers 00:16:00 02:29:00 Lois Rowland Noemi 350.1.13.10 i ty of [place] 4.2.7.2.686 [facility] [id number] [address] 2021-01-24 2021-01-24 Orders Doctor PERI 1.2.840.114 [id number] 00:00:00 00:00:00 Only Unassigned, MOISÉS 350.1.13.10 [place] [facility] 4.2.7.2.686 [id number] 2021-01-24 2021-01-24 Orders Doctor PERI 1.2.840.114 [id number] Univers 00:00:00 00:00:00 Only Unassigned, MOISÉS 350.1.13.10 ity of [place] [facility] 4.2.7.2.686 Elio as [id number] [address] 2021-01-23 2021-01-23 Orders Doctor WHITT 1.2.840.114 [id number] 00:00:00 00:00:00 Only Unassigned, MOISÉS 350.1.13.10 [place] [facility] 4.2.7.2.686 [id number] 2021-01-23 2021-01-23 Orders Doctor WHITT 1.2.840.114 [id number] Univers 00:00:00 00:00:00 Only Unassigned, MOISÉS 350.1.13.10 ity of [place] HOSPITAL 4.2.7.2.686 Elio as [phone] [address] 2021-01-03 2021-01-03 [facility] 1.2.840.114 [id number] 21:27:00 23:45:00 Dedra Fernando 350.1.13.10 [place] 4.2.7.2.686 [place] [phone] [facility] 2021-01-03 2021-01-03 Emergency Elvira [facility] 1.2.840.114 [id number] [facility] 21:27:00 23:45:00 Dedra Fernando 350.1.13.10 ity of [place] 4.2.7.2.686 [facility] [phone] [address] 2021-01-02 2021-01-02 Emergency [facility] [id number] 14:10:00 19:43:00 Lois Fernando 350.1.13.10 [place] 4.2.7.2.686 [place] [id number] [id number] 2021-01-02 2021-01-02 Emergency [place], [facility] [id number] Univers 14:10:00 19:43:00 Lois Fernando 350.1.13.10 i [place] of [place]7.2.686 [place] [id number] [facility] [address] [place] 2021-01-02 2021-01-02 Orders Doctor EPRI 1.2.840.114 [id number] Univers 00:00:00 00:00:00 Only Unassigned, MOISÉS 350.1.13.10 ity of [place] [facility] 4.2.7.2.686 Elio as [phone] [facility] [address] [place] 2021-01-02 2021-01-02 Orders Doctor PERI 1.2.840.114 [id number] 00:00:00 00:00:00 Only Unassigned, MOISÉS 350.1.13.10 [place] [facility] 4.2.7.2.686 [phone] [facility] [place][note 2] 2020-11-17 2020-11-17 Outpatient R ANDREA [facility] [id number] [facility] 14:30:00 14:30:00 TERRI perera [facility] 2020-11-07 2020-11-07 Office Andrea, [facility] [id number] [facility] 14:03:28 14:54:11 Visit Terri Garcia [employer] 350.1.13.10 ity of REGIONAL 4.2.7.2.686 Elio as MATERNAL [phone] [facility] ical & CHILD [address] [place] [address] 2020-11-07 2020-11-07 Office Andrea, [facility] [id number] 14:03:28 14:54:11 Visit Terri Garcia [employer] 350.1.13.10 REGIONAL 4.2.7.2.686 MATERNAL [phone] & CHILD [address] [place] [address] 2020-11-07 2020-11-07 [facility] [id number] Univers 14:00:00 14:00:00 TERRI ity o trever [facility] 2020-11-07 2020-11-07 [facility] [id number] Univers 14:00:00 14:00:00 TERRI ity o [facility] 2020-11-02 2020-11-02 Outpatient R [facility] [id number] Univers 10:00:00 10:00:00 [facility] 2020-11-02 2020-11-02 Outpatient [facility] [id number] Univers 10:00:00 10:00:00 CARY oneil o [facility] 2020-10-27 2020-10-27 Telephone [facility] 1.2.840.114 [id number] Univers 00:00:00 00:00:00 Inez Langston [employer] 350.1.13.10 it y of [facility] 4.2.7.2.686 Elio as MATERNAL [id number] [facility] & CHILD [address] [place] [address] 2020-10-26 2020-10-26 [facility] [id number] Univers 15:30:00 15:30:00 INEZ [facility] 2020-10-26 2020-10-26 [facility] [id number] Univers 15:30:00 15:30:00 INEZ [facility] 2020-10-26 2020-10-26 Office [facility] [id number] Univers 14:29:31 14:57:36 Visit Inez Langston [employer] 350.1.13.10 it y of [facility] 4.2.7.2.686 Elio as MATERNAL [phone] [facility] & CHILD [address] [place] [address] 2020-10-26 2020-10-26 Heron WHITT 1.2.840.114 [id number] Univers 00:00:00 00:00:00 Only Unassigned, MOISÉS 350.1.13.10 ity of [place] [facility] 4.2.7.2.686 Elio as [phone] [facility] [address] 2020-10-25 2020-10-25 [facility] 1.2.840.114 [id number] Univers 06:30:53 23:59:00 Encounter Terri Garcia SPECIALTY 350.1.13.10 ity of [place].2.[place] [phone] Ne pennynj BERENICE 815 [facility] 2020-10-25 2020-10-25 Outpatient R [facility] [id number] Univers 00:00:00 23:59:00 TERRI oneil o [facility] 2020-10-25 2020-10-25 Outpatient [facility] [id number] Univers 00:00:00 23:59:00 TERRI oneil o [facility] 2020-10-25 2020-10-25 Outpatient R [facility] [id number] Univers 00:00:00 00:00:00 TERRIKAYA oneil o [facility] 2020-10-20 2020-10-20 Outpatient [facility] [id number] Univers 14:30:00 14:30:00 TERRI oneil o [facility] 2020-10-20 2020-10-20 Office [facility] [id number] Univers 08:18:28 09:27:15 Visit Terri Garcia [employer] 350.1.13.10 ity of REGIONAL 4.2.7.2.686 Elio as MATERNAL [phone] Med ical & CHILD [address] [facility] [place] [place] 2020-10-20 2020-10-20 Orders Doctor WHITT 1.2.840.114 [id number] Univers 00:00:00 00:00:00 Only Unassigned, MOISÉS 350.1.13.10 ity of [place] [facility] 4.2.7.2.686 Elio as [phone] [facility] [address] 2020-10-16 2020-10-16 Telephone Pcp, [facility] [id number] Univers 00:00:00 00:00:00 Patient TRAFFIC CONTROLLER CABLE 350.1.13.10 it y of Does Not [place].2.[place] MATERNAL [phone] Med ical & CHILD [address] [place] [address] 2019-11-16 2019-11-16 Telephone Martinez, [facility] [id number] Univers 00:00:00 00:00:00 Any [facility] 350.1.13.10 i ty of [place] 4.2.7.2.686 Elio as Professio [phone] Ne dical nal [address] [place] Office Building [facility] 2019-11-16 2019-11-16 Telephone Pob1, Acute [facility] 1.2.840.114 [id number] Univers 00:00:00 00:00:00 [facility] 350.1.13.10 ity of [place] 4.2.7.2.686 Elio as Professio [phone] Ne dical nal [address] [place] [address] Office Building [facility] 2019-11-11 2019-11-11 Office Pob1, Acute [facility] 1. 2.840.114 [id number] Univers 09:53:53 11:56:02 Visit Any Henriquez [facility] 350.1.13.10 ity of [place] 4.2.7.2.686 Elio as Professio [phone] Ne dic[address] Office [facility] 2019-11-11 2019-11-11 Outpatient R [facility] [id number] Univers 09:20:00 09:20:00 ity [facility] 2019-10-18 2019-10-18 [facility] [id number] Univers 14:00:00 14:00:00 LAURA ity [facility] Results Test Description Test Time Test [...] See_Comment [Au tomated message] The system which Sofea nerated this result transmit rogelio reference range: [...] 34.4 g/dL 31.6-35.1 RDW-SD (test code = 45873-0) 39.6 fL 39.0-49.9 RDW-CV (test code = 788-0) 12.7 % 12.0-15.5 PLT (test code = 777-3) See_Comment [Au tomated message] The system which Sofea nerated this result transmit rogelio reference range: 166 - 35 8 10*3/?L. The reference range was not used to interpret th is result as normal/abnormal . MPV (test code = 25676-4) 8.8 fL 9.5-12.9 L NRBC/100 WBC (test code = See_Comment [ Automated message] The 1237487576) system which Sofea nerated this result transmit rogelio reference range: 0.0 - 10 .0 /100 WBCs. The reference r alec was not used to interpr et this result as normal/abnor mal. NRBC x10^3 (test code = See_Comment [Au tomated message] The 8279541938) system which Sofea nerated this result transmit rogelio reference range: 10*3/?L. The reference range was not u sed to interpret this result as normal/abnormal . GRAN MAT (NEUT) % (test code 66.2 % = 770-8) IMM GRAN % (test code = 0.50 % 4440059932) LYMPH % (test code = 736-9) 27.1 % MONO % (test code = 5905-5) 4.9 % EOS % (test code = 713-8) 0.9 % BASO % (test code = 706-2) 0.4 % GRAN MAT x10^3(ANC) (test 5.29 10*3/uL 1.88-7.09 code = 9529094174) IMM GRAN x10^3 (test code = 0.04 10*3/uL 0.00-0.06 4965289659) LYMPH x10^3 (test code = 2.16 10*3/uL 1.32-3.29 731-0) MONO x10^3 (test code = 0.39 10*3/uL 0.33-0.92 742-7) EOS x10^3 (test code = 0.07 10*3/uL 0.03-0.39 711-2) BASO x10^3 (test code = 0.03 10*3/uL 0.01-0.07 704-7) Lab Interpretation (test Abnormal code = 17747-6) [facility] ([id number])2022-08-28 04:02:10 Test Item Value Reference Range Interpretation Comments NA (test code = 139 mmol/L 135-145 4117652785) K (test code = 4.1 mmol/L 3.5-5.0 7793287988) CL (test code = 102 mmol/L 98-108 0584611358) CO2 TOTAL (test code 26 mmol/L 23-31 = 6143544120) AGAP (test code = 2-16 6461978903) BUN (test code = 15 mg/dL 7-23 9864911949) GLUCOSE (test code = 75 mg/dL 70-110 5496505335) CREATININE (test code 0.85 mg/dL 0.50-1.04 = 2395032236) TOTAL BILI (test code 0.4 mg/dL 0.1-1.1 = 9302029977) CALCIUM (test code = 8.7 mg/dL 8.6-10.6 4715487004) T PROTEIN (test code 7.7 g/dL 6.3-8.2 = 9835916494) ALBUMIN (test code = 4.6 g/dL 3.5-5.0 7098094859) ALK PHOS (test code = 62 U/L 34-122 6116549538) ALTv (test code = 17 U/L 5-35 2-6) AST(SGOT) (test code 21 U/L 13-40 = 7048173124) eGFR (test code = mL/min/1.73m2 7490464352) JADEN (test code = JADEN) Association of [...] [facility] 04:01:49 Test Item Value Reference Range Interpretation Comments LIPASE (test code = 0050287298) 82 U/L 0-220 Lab Interpretation (test code = Normal 16313-6) [facility] PAN[facility] ([id number])2022-08-24 04:21:59 Test Item Value Reference Range Interpretation Comments NA (test code = 136 mmol/L 135-145 1078262846) K (test code = 3.9 mmol/L 3.5-5.0 7906599306) CL (test code = 98 mmol/L 98-108 6224747753) CO2 TOTAL (test code 31 mmol/L 23-31 = 0725490444) AGAP (test code = 2-16 3171117767) BUN (test code = 21 mg/dL 7-23 3425841070) GLUCOSE (test code = 91 mg/dL 70-110 4602835215) CREATININE (test code 0.77 mg/dL 0.50-1.04 = 9292444475) TOTAL BILI (test code 0.4 mg/dL 0.1-1.1 = 8356935981) CALCIUM (test code = 9.0 mg/dL 8.6-10.6 2790198309) T PROTEIN (test code 7.5 g/dL 6.3-8.2 = 9918077578) ALBUMIN (test code = 4.3 g/dL 3.5-5.0 5323409327) ALK PHOS (test code = 70 U/L 34-122 9025545431) ALTv (test code = 15 U/L 5-35 1742-6) AST(SGOT) (test code 19 U/L 13-40 = 6184240637) eGFR (test code = mL/min/1.73m2 3147402385) JADEN (test code = JADEN) Association of [...] [facility]22[facility]31 04:21:59 Test Item Value Reference Range Interpretation Comments LIPASE (test code = 6821144391) 66 U/L 0-220 Lab Interpretation (test code = Normal 53767-9) [facility] WITH [id number] 03:50:59 Test Item Value Reference Range Interpretation Comments WBC (test code = See_Comment [Automated 9761-2) message] The sy stem which generated this result transmitted reference range : 4.30 - 11.10 10*3/?L. The reference range was not used to interpret this result as normal/abnormal . RBC (test code = See_Comment [Automated 529-8) message] The sy stem which generated this [...] RDW-SD (test code = 39.7 fL 39.0-49.9 58549-5) RDW-CV (test code = 12.7 % 12.0-15.5 788-0) PLT (test code = See_Comment [Automated 767-3) message] The sy stem which generated this result transmitted reference range : 166 - 358 10*3/ ?L. The reference r alec was not used to interpret this result as normal/abnormal . MPV (test code = 8.6 fL 9.5-12.9 L 26476-7) NRBC/100 WBC (test See_Comment [Automat ed code = 2281968774) message] The system which generated this result transmitted reference range : 0.0 - 10.0 /100 WBCs. The refer ence range was not u sed to interpret th is result as normal/abnormal . NRBC x10^3 (test code See_Comment [Auto mated = 9502333254) message] The s ystem which generated this result transmitted reference range : 10*3/?L. The reference range was not used to interpret this result as normal/abnormal . GRAN MAT (NEUT) % 62.8 % (test code = 770-8) IMM GRAN % (test code 0.30 % = 8962664809) LYMPH % (test code = 29.7 % 736-9) MONO % (test code = 6.3 % 5905-5) EOS % (test code = 0.5 % 713-8) BASO % (test code = 0.4 % 706-2) GRAN MAT x10^3(ANC) 4.85 10*3/uL 1.88-7.09 (test code = 2319566029) IMM GRAN x10^3 (test 0.00-0.06 code = 1029103428) LYMPH x10^3 (test code 2.29 10*3/uL 1.32-3.29 = 731-0) MONO x10^3 (test code 0.49 10*3/uL 0.33-0.92 = 742-7) EOS x10^3 (test code = 0.04 10*3/uL 0.03-0.39 711-2) BASO x10^3 (test code 0.03 10*3/uL 0.01-0.07 = 704-7) Lab Interpretation Abnormal (test code = 05829-9) [facility] [id number] 03:42:00 Test Item Value Reference Range Interpretation Comments POCT PREG (test code = 1605) negative On board controls acceptable with positive C Line (test code = 3574) POCT PREG LOT # (test code = 3575) [id number] POCT PREG TEST DATE (test 11/23/2023 code = 3576) Lab Interpretation (test code = Normal 78069-7) [facility]"
[2023-02-12] MEDS ORDERED: CYCLOBENZAPRINE 10 MG TAB ONE (15:16)
[2023-02-12] MEDS ORDERED: KETOROLAC 30 MG/ML INJ ONE (15:17)
--- NOTE | 2023-02-12 17:22 | RAD REPORT ---
EXAM DESCRIPTION: RAD - C Spine W Obliques - 02/12/2023 3:28 pm CLINICAL HISTORY: PAIN COMPARISON: No comparisons TECHNIQUE: 5 views of the cervical spine were obtained. Oblique views were also obtained. FINDINGS: Straightening of normal cervical lordosis which may be positional or secondary to muscle s pasm. Cervical vertebral bodies are normal in height and alignment. No fracture or other suspicious bony fi nding. Oblique views show uncovertebral joint spurring contributing to raom-gh-usmjseio left neural f oraminal narrowing at C5-6. The other neural foramina patent. No facet joint alignment abnormality. Endplate remodeling and spurring at C5-6. No disc space narrowing. There is no prevertebral soft tissue thickening or other significant soft tissue finding. IMPRESSION: Asymmetric degenerative changes contributing to qswb-ai-mjdesetq left neural foraminal n arrowing at C5-6. Straightening of normal cervical lordosis.
--- NOTE | 2023-02-12 17:23 | RAD REPORT ---
EXAM DESCRIPTION: RAD - Shoulder Left 2 View - 02/12/2023 3:28 pm CLINICAL HISTORY: PAIN COMPARISON: No comparisons TECHNIQUE: Internal and external rotation views of the left shoulder were obtained. FINDINGS: There is no fracture or dislocation. AC joint is normal in appearance. No acute or suspici ous findings. IMPRESSION: Negative two-view left shoulder examination.
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
[2023-02-12 18:25] VITALS: TEMP 97.6
[2023-02-12 18:28] VITALS: BP 114/80; O2SAT 100
== END 2023-02-12 18:20 | disposition home or self-care (01) ==
LOC: ER 14:31
DX: M25.512 Pain in left shoulder (principal)
CPT/HCPCS: 72050

== ENCOUNTER → 2023-11-19 | Emergency (ER) | payer OTHER ==
[~2023-11-19] MED LIST: CEPHALEXIN 250 MG CAP ONE; KETOROLAC 30 MG/ML INJ ONE; NA CHLORIDE 0.9% 1,000 ML ONE; metroNIDAZOLE 500 MG TABLET ONE
--- OUTSIDE RECORDS SUMMARY | 2023-11-19 22:10 | XMS REPORT | Continuity of Care Document ---
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 2023-11-13 19:43:00 160 cm [facility] Body weight 2023-11-13 19:43:00 63.776 kg [facility] BMI 2023-11-13 19:43:00 24.91 kg/m2 [facility] Oxygen saturation in Arterial blood by Pulse oximetry 2023-11-13 19:43:00 100 /min [facility] Systolic blood pressure 2023-10-28 19:24:07 120 mm[Hg] [facility] Diastolic blood pressure 2023-10-28 19:24:07 84 mm[Hg] [facility] Heart rate 2023-10-28 19:24:07 98 /min [facility] Respiratory rate 2023-10-28 19:24:07 20 /min [facility] Oxygen saturation in Arterial blood by Pulse oximetry 2023-10-28 19:24:07 100 /min [facility] Body temperature 2023-10-28 17:08:00 36.78 Chanel [facility] Body height 2023-10-28 17:08:00 160 cm [facility] Body weight 2023-10-28 17:08:00 60.782 kg [facility] BMI 2023-10-28 17:08:00 23.74 kg/m2 [facility] Systolic blood pressure 2023-09-06 22:10:00 122 mm[Hg] [facility] Diastolic blood pressure 2023-09-06 22:10:00 85 mm[Hg] [facility] Heart rate 2023-09-06 22:10:00 104 /min [facility] Body temperature 2023-09-06 22:10:00 36.78 Chanel [facility] Respiratory rate 2023-09-06 22:10:00 17 /min [facility] Body height 2023-09-06 22:10:00 160 cm [facility] Body weight 2023-09-06 22:10:00 61.236 kg [facility] BMI 2023-09-06 22:10:00 23.91 kg/m2 [facility] Oxygen saturation in Arterial blood by Pulse oximetry 2023-09-06 22:10:00 100 /min [facility] Systolic blood pressure 2023-05-17 15:13:00 125 mm[Hg] [facility] Diastolic blood pressure 2023-05-17 15:13:00 81 mm[Hg] [facility] Heart rate 2023-05-17 15:13:00 102 /min [facility] Body temperature 2023-05-17 15:13:00 36.72 Chanel [facility] Respiratory rate 2023-05-17 15:13:00 16 /min [facility] Body height 2023-05-17 15:13:00 157.5 cm [facility] Body weight 2023-05-17 15:13:00 58.559 kg [facility] BMI 2023-05-17 15:13:00 23.61 kg/m2 [facility] Systolic blood pressure 2023-01-18 16:51:00 121 mm[Hg] [facility] Diastolic blood pressure 2023-01-18 16:51:00 82 mm[Hg] [facility] Heart rate 2023-01-18 16:51:00 97 /min [facility] Respiratory rate 2023-01-18 16:51:00 16 /min [facility] Oxygen saturation in Arterial blood by Pulse oximetry 2023-01-18 16:51:00 100 /min [facility] Body temperature 2023-01-18 14:31:00 36.67 Chanel [facility] Body height 2023-01-18 14:31:00 157.5 cm [facility] Body weight 2023-01-18 14:31:00 58.968 kg [facility] BMI 2023-01-18 14:31:00 23.78 kg/m2 [facility] Systolic blood pressure 2022-08-28 06:06:07 99 mm[Hg] [facility] Diastolic blood pressure 2022-08-28 06:06:07 70 mm[Hg] [facility] Heart rate 2022-08-28 06:06:07 95 /min [facility] Respiratory rate 2022-08-28 06:06:07 18 /min [facility] Oxygen saturation in Arterial blood by Pulse oximetry 2022-08-28 06:06:07 100 /min [facility] Body temperature 2022-08-28 02:33:00 37 Chanel [facility] Body height 2022-08-28 02:33:00 160 cm [facility] Body weight 2022-08-28 02:33:00 70.308 kg [facility] BMI 2022-08-28 02:33:00 27.46 kg/m2 [facility] Systolic blood pressure 2022-08-24 02:32:00 123 mm[Hg] [facility] Diastolic blood pressure 2022-08-24 02:32:00 82 mm[Hg] [facility] Heart rate 2022-08-24 02:32:00 97 /min [facility] Body temperature 2022-08-24 02:32:00 37.22 Chanel [facility] Respiratory rate 2022-08-24 02:32:00 18 /min [facility] Body height 2022-08-24 02:32:00 160 cm [facility] Body weight 2022-08-24 02:32:00 70.308 kg [facility] BMI 2022-08-24 02:32:00 27.46 kg/m2 [facility] Oxygen saturation in Arterial blood by Pulse oximetry 2022-08-24 02:32:00 100 /min [facility] Procedures Procedure Date / Time Performed Performing Clinician Source POCT TEST 2023-11-19 20:42:00 Gary Welsh [facility] URINALYSIS 2023-11-19 20:30:00 Brenda Welsh [facility] ASSIGNMENT OF BENEFITS 2023-10-28 18:35:56 Docto r Unassigned, [place] [facility] URINALYSIS 2023-10-28 17:43:00 Amrita Boateng [facility] RAPID INFLUENZA A/B 2023-10-28 17:43:00 Amrita Boateng [facility] COVID-19 (ID NOW RAPID TESTING) 2023-10-28 17:43:00 Amrita Boateng [facility] XR ABDOMEN ACUTE SERIES 2023-10-28 17:37:00 Diane Boateng [facility] POCT TEST 2023-10-28 17:27:00 Amrita Boateng [facility] CONSENT/REFUSAL FOR DIAGNOSIS AND TREATMENT 2023-10-28 17:01:18 Doctor Unassigned, [place] [facility] ASSIGNMENT OF BENEFITS 2023-09-06 23:25:50 Docto r Unassigned, [place] [facility] RAPID STREP SCREEN FOR GROUP A 2023-09-06 22:41:00 Louise House [facility] RAPID INFLUENZA A/B 2023-09-06 22:41:00 Tez House [facility] COVID-19 (ID NOW RAPID TESTING) 2023-09-06 22:41:00 Louise House [facility] CONSENT/REFUSAL FOR DIAGNOSIS AND TREATMENT 2023-09-06 22:05:33 Doctor Unassigned, [place] [facility] BCCS-RELATED DOCUMENTATION 2023-06-27 05:01:00 Doctor Unassigned, [place] [facility] BI ULTRASOUND BREAST COMPLETE RIGHT 2023-06-05 18:38:00 Obdulia Paulino [facility] BI DIAGNOSTIC TOMOSYNTHESIS RIGHT 2023-06-05 18:18:16 Greer Mendez [facility] GARDASIL 9 (HPV 9V) VACCINE 2023-05-17 15:28:56 Obdulia Paulino [facility] EXTERNAL PROVIDER RECORDS 2023-05-17 05:01:00 Doctor Unassigned, [place] [facility] ASSIGNMENT OF BENEFITS 2023-05-01 19:06:56 Docto r Unassigned, [place] [facility] CT CERVICAL SPINE WO CONTRAST 2023-01-18 15:38:46 Chandrakant Hernandez [facility] CT HEAD WO CONTRAST 2023-01-18 15:38:46 Chandrakant Hernandez [facility] AUTHORIZATION FOR RELEASE OF PHI 2022-09-30 06:01:00 Doctor Unassigned, [place] [facility] LACTIC ACID WHOLE BLOOD 2022-08-28 04:57:00 Renee Hernandez [facility] CT ABDOMEN PELVIS W CONTRAST 2022-08-28 04:40:00 Chandrakant Hernandez [facility] CBC WITH DIFF 2022-08-28 04:15:00 Chandrakant Hernandez [facility] LIPASE 2022-08-28 03:31:00 Chandrakant Hernandez [facility] COMP. METABOLIC PANEL ([id number]) 2022-08-28 03:31:00 Chandrakant Hernandez [facility] URINALYSIS 2022-08-28 03:31:00 Chandrakant Hernandez [facility] CONSENT/REFUSAL FOR DIAGNOSIS AND TREATMENT 2022-08-28 02:24:47 Doctor Unassigned, [place] [facility] POCT TEST 2022-08-24 03:42:00 Cesar Lepe [facility] LIPASE 2022-08-24 03:37:00 Earnest Lepe [facility] COMP. METABOLIC PANEL ([id number]) 2022-08-24 03:37:00 Earnest Lepe [facility] CBC WITH DIFF 2022-08-24 03:37:00 [facility]24 03:37[facility]00 [facility]B 2022-08-24 03:37:00 Cesar Lepe [facility] COVID-19 (ID NOW RAPID TESTING) 2022-08-24 03:37:00 Earnest Lepe [facility] NOTICE OF PRIVACY PRACTICES 2022-08-24 02:25:40 Doctor Unassigned, [place] [facility] CONSENT/REFUSAL FOR DIAGNOSIS AND TREATMENT 2022-08-24 02:25:26 Doctor Unassigned, [place] [facility] BI ULTRASOUND BREAST COMPLETE LEFT 2022-04-19 16:54:50 Tran Gracia [facility] BI DIAGNOSTIC TOMOSYNTHESIS BILATERAL 2022-04-19 15:45:17 Tran Gracia [facility] EXTERNAL PROVIDER RECORDS 2022-03-11 05:01:00 Doctor Unassigned, [place] [facility] Encounters Start Date/Time End Date/Time Encounter Type Admission Type Attending [facility] Care Facility Care Department Encounter ID Source 2021-06-25 12:18:21 Emergency [facility] [id number] [facility] 2021-06-24 22:33:05 Emergency [facility] [id number] [facility] 2021-06-24 18:47:40 Emergency [facility] [id number] [facility] 2021-06-24 18:26:56 Emergency [facility] [id number] [facility] 2024-05-18 15:20:00 2024-05-18 15:20:00 Outpatient RONIT WILSON [facility] [id number] [facility] 2023-12-15 15:00:00 2023-12-15 15:00:00 Outpatient ARMAAN CUELLO CRAIG [facility] [id number] [facility] 2023-11-19 15:20:00 2023-11-19 16:49:00 Emergency BRENDA LANZA [facility] ERT [id number] [facility] 2023-11-19 15:20:00 2023-11-19 16:49:00 Emergency Brenda Welsh [facility] 1..840.114 350.1.13.10 4.2.7.2.686 [id number] [facility] 2023-11-13 15:00:00 2023-11-13 16:14:29 Outpatient R RONIT VALDIVIA [facility] [id number] [facility] 2023-11-13 15:00:00 2023-11-13 16:14:29 Office Visit Ronit Valdivia [facility] 1.840.114 350.1.13.10 4.2.7.2.686 [id number] [facility] 2023-10-28 11:09:00 2023-10-28 13:25:00 Emergency X AMRITA BOATENG [facility] ERT [id number] [facility] 2023-10-28 11:09:00 2023-10-28 13:25:00 Emergency Amrita Boateng [facility] 1.840.114 350.1.13.10 4.2.7.2.686 [id number] [facility] 2023-10-27 14:00:00 2023-10-27 14:00:00 Outpatient MASON ALLRED [id number] Chari Mares 2023-10-04 00:00:00 2023-10-04 00:00:00 Patient Secure Msg Doctor Unassigned, [place] [facility] 1.840.114 350.1.13.10 4.2.7.2.686 [id number] [facility] 2023-09-06 16:18:00 2023-09-06 18:57:00 Emergency X LOUISE HOUSE [facility] ERT [id number] [facility] 2023-09-06 16:18:00 2023-09-06 18:57:00 Emergency Louise House [facility] 1.2.840.114 350.1.13.10 4.2.7.2.686 [id number] [facility] 2023-08-29 13:00:00 2023-08-29 13:00:00 Outpatient R GREER MENDEZ [facility] [id number] [facility] 2023-08-28 00:00:00 2023-08-28 00:00:00 Patient Secure Msg Doctor Unassigned, [place] [facility] 1.2.840.114 350.1.13.10 4.2.7.2.686 [id number] [facility] 2023-08-15 13:00:00 2023-08-15 13:00:00 Outpatient R GREER MENDEZ [facility] [id number] [facility] 2023-07-28 00:00:00 2023-07-28 00:00:00 Patient Secure Msg Doctor Unassigned, [place] [facility] 1.2.840.114 350.1.13.10 4.2.7.2.686 [id number] [facility] 2023-07-14 15:00:00 2023-07-14 15:00:00 Outpatient R [facility] [id number] [facility] 2023-06-27 00:00:00 2023-06-27 00:00:00 Orders Only Doctor Unassigned, [place] [facility] 1.2.840.114 350.1.13.10 4.2.7.2.686 [id number] [facility] 2023-06-21 00:00:00 2023-06-21 00:00:00 Outpatient GC_GCBZW_Ka diyala_S PRIV [facility] [id number] [facility] 2023-06-10 00:00:2023-06-10 00:00:00 Case Management Obdulia Paulino [facility] 1.0.114 350.1.13.10 4.2.7.2.686 [id number] [facility] 2023-06-06 00:00:00 2023-06-06 00:00:00 Telephone Greer Mendez [facility] [employer]ITY ADMINISTRATOR [facility] 1.840.114 350.1.13.10 4.2.7.2.686 [id number] [facility] 2023-06-05 12:06:38 2023-06-05 23:59:00 Hospital Encounter Obdulia Paulino [facility] 1.840.114 350.1.13.10 4.2.7.2.686 [id number] [facility] 2023-06-05 12:06:31 2023-06-05 23:59:00 Outpatient R GREER EMNDEZ [facility] [id number] [facility] 2023-06-05 12:06:31 2023-06-05 23:59:00 Hospital Encounter Greer Mendez [facility] 1.840.114 350.1.13.10 4.2.7.2.686 [id number] 800 [id number] [facility] 2023-06-02 00:00:00 2023-06-02 00:00:00 Patient Secure Msg Greer Mendez [facility] [employer] SECURITY ADMINISTRATOR [facility] 1.840.114 350.1.13.10 4.2.7.2.686 [id number] [facility] 2023-06-02 00:00:00 2023-06-02 00:00:00 Patient Secure Msg Greer Mendez [facility] [employer] SEC[employer]ITY ADMINISTRATOR [facility] 1.840.114 350.1.13.10 4.2.7.2.686 [id number] [facility] 2023-05-29 00:00:00 2023-05-29 00:00:00 Patient Secure Msg Doctor Unassigned, [place] [facility] 1.2840.114 350.1.13.10 4.2.7.2.686 [id number] [facility] 2023-05-19 00:00:00 2023-05-19 00:00:00 Patient Secure Msg [facility] 1.0.114 350.1.13.10 4.2.7.2.686 [id number] [facility] 2023-05-18 00:00:00 2023-05-18 00:00:00 Patient Secure Msg Doctor Unassigned, [place] [facility] 1.0.114 350.1.13.10 4.2.7.2.686 [id number] [facility] 2023-05-17 10:15:00 2023-05-17 11:09:49 Outpatient R JEFFERSON OBDULIA [facility] [id number] [facility] 2023-05-17 10:15:00 2023-05-17 11:09:49 Office Visit Provider, AdrianachChetna Arredondo [facility] CYBER SECURITY ADMINISTRATOR [facility] 1..114 350.1.13.10 4.2.7.2.686 [id number] [facility] 2023-05-17 00:00:00 2023-05-17 00:00:00 Orders Only Doctor Unassigned, [place] [facility] 1.2840.114 350.1.13.10 4.2.7.2.686 [id number] [facility] 2023-05-17 00:00:00 2023-05-17 00:00:00 Patient Secure Msg Doctor Unassigned, [place] [facility] 1.2840.114 350.1.13.10 4.2.7.2.686 [id number] [facility] 2023-05-14 13:30:00 2023-05-14 13:30:00 Outpatient CHETNA LAURENT [facility] [id number] [facility] 2023-05-12 00:00:00 2023-05-12 00:00:00 Case Management [facility] 1.2840.114 350.1.13.10 4.2.7.2.686 [id number] [facility] 2023-05-12 00:00:00 2023-05-12 00:00:00 Telephone Greer Mendez [facility] CY[employer] SEC[employer]ITY ADMINISTRATOR [facility] 1.2840.114 350.1.13.10 4.2.7.2.686 [id number] [facility] 2023-05-09 00:00:00 2023-05-09 00:00:00 Patient Secure Msg Doctor Unassigned, [place] [facility] 1.2840.114 350.1.13.10 4.2.7.2.686 [id number] [facility] 2023-05-08 00:00:00 2023-05-08 00:00:00 Telephone Tran Gracia [facility] CYBER SECURITY ADMINISTRATOR [facility] 1.840.114 350.1.13.10 4.2.7.2.686 [id number] [facility] 2023-05-01 14:10:36 2023-05-01 23:59:00 Outpatient ABY COOK [facility] [id number] [facility] 2023-05-01 14:10:36 2023-05-01 23:59:00 Hospital Encounter Aby Phelps [facility] 1.2.840.114 350.1.13.10 4.2.7.2.686 [id number] [facility] 2023-05-01 00:00:00 2023-05-01 00:00:00 Orders Only Doctor Unassigned, [place] [facility] 1.2.840.114 350.1.13.10 4.2.7.2.686 [id number] [facility] 2023-04-30 00:00:00 2023-04-30 00:00:00 Patient Secure Msg Doctor Unassigned, [place] [facility] 1.2.840.114 350.1.13.10 4.2.7.2.686 [id number] [facility] 2023-04-03 00:00:00 2023-04-03 00:00:00 Patient Secure Msg Doctor Unassigned, [place] [facility] 1.2.840.114 350.1.13.10 4.2.7.2.686 [id number] [facility] 2023-01-25 00:00:00 2023-01-25 00:00:00 Patient Secure Msg Doctor Unassigned, [place] [facility] 1.2.840.114 350.1.13.10 4.2.7.2.686 [id number] [facility] 2023-01-23 00:00:00 2023-01-23 00:00:00 Patient Secure Msg Doctor Unassigned, [place] [facility] 1.2.840.114 350.1.13.10 4.2.7.2.686 [id number] [facility] 2023-01-23 00:00:00 2023-01-23 00:00:00 Patient Secure Msg Doctor Unassigned, [place] [facility] 1.2.840.114 350.1.13.10 4.2.7.2.686 [id number] [facility] 2023-01-18 09:37:00 2023-01-18 11:55:00 Emergency X CHANDRAKANT HERNANDEZ [facility] ERT [id number] [facility] 2023-01-18 09:37:00 2023-01-18 11:55:00 Emergency Chandrakant Hernandez [facility] 1.2.840.114 350.1.13.10 4.2.7.2.686 [id number] [facility] 2022-09-30 00:00:00 2022-09-30 00:00:00 Orders Only Doctor Unassigned, [place] [facility] 1.2840.114 350.1.13.10 4.2.7.2.686 [id number] [facility] 2022-08-27 20:38:00 2022-08-28 01:18:00 Emergency X CHANDRAKANT HERNANDEZ [facility] ERT [id number] [facility] 2022-08-27 20:38:00 2022-08-28 01:18:00 Emergency [facility] [facility] 1.2840.114 350.1.13.10 4.2.7.2.686 [id number] [facility] 2022-08-23 20:34:00 2022-08-23 22:46:00 Emergency X EARNEST LEPE [facility] ERT [id number] [facility] 2022-08-23 20:34:00 2022-08-23 22:46:00 Emergency Behzadi, Earnest A [facility] 1.2.840.114 350.1.13.10 4.2.7.2.686 [id number] [facility] 2022-04-19 09:48:10 2022-04-19 23:59:00 Outpatient R TRAN GRACIA EMILY [facility] [id number] [facility] 2022-04-19 09:48:10 2022-04-19 23:59:00 Hospital Encounter Kavon Trankirill Ricks [facility] 1.2.840.114 350.1.13.10 4.2.7.2.686 [id number] [facility] 2022-04-19 09:47:42 2022-04-19 09:47:42 [facility] 1..840.114 350.1.13.10 4.2.7.2.686 [id number] [facility] 2022-04-11 10:00:00 2022-04-11 10:00:00 Outpatient CARY JIMÉNEZ [facility] [id number] [facility] 2022-04-08 13:30:00 2022-04-08 13:30:00 Outpatient R [facility] [id number] [facility] 2022-04-08 13:30:00 2022-04-08 13:30:00 Outpatient R [facility] [id number] [facility] 2022-04-08 13:30:00 2022-04-08 13:30:00 Outpatient CARY JIMÉNEZ [facility] [id number] [facility] 2022-04-01 00:00:00 2022-04-01 00:00:00 Outpatient TRAN JAMIL EMILY [facility] [id number] [facility] 2022-04-01 00:00:00 2022-04-01 00:00:00 Outpatient TRAN JAMIL EMILY [facility] [id number] [facility] 2022-03-15 00:00:00 2022-03-15 00:00:00 Cary Butt [facility] CYBER SECURITY ADMINISTRATOR [facility] 1.2.840.114 350.1.13.10 4.2.7.2.686 [id number] 107 [id number] [facility] 2022-03-13 10:00:00 2022-03-13 10:00:00 Outpatient R CARY CABELLO [facility] [id number] [facility] 2022-03-13 00:00:00 2022-03-13 00:00:00 Orders Only Doctor Unassigned, [place] [facility] 1.2840.114 350.1.13.10 4.2.7.2.686 [id number] [facility] 2022-03-13 00:00:00 2022-03-13 00:00:00 Case Management Cabello, Roskimi [facility] 1.2840.114 350.1.13.10 4.2.7.2.686 [id number] [facility] 2022-03-11 00:00:00 2022-03-11 00:00:00 Orders Only Doctor Unassigned, [place] [facility] 1.2840.114 350.1.13.10 4.2.7.2.686 [id number] [id number] [facility] 2022-03-07 00:00:00 2022-03-07 00:00:00 Patient Secure Msg Doctor Unassigned, [place] [facility] CYBER SECURITY ADMINISTRATOR [facility] CHILD [facility] 1.2840.114 350.1.13.10 4.2.7.2.686 [id number] 107 [id number] [facility] 2022-03-05 13:45:00 2022-03-05 15:29:53 Outpatient TRAN JAMIL EMILY [facility] [id number] [facility] 2022-03-05 13:45:00 2022-03-05 15:29:53 Office Visit Provider, Adrianachp Tran Rockwell [facility] CYBER SECURITY ADMINISTRATOR [facility]ERNAL & CHILD [facility] 1..114 350.1.13.10 4.2.7.2.686 [id number] [facility] 2022-03-05 13:45:00 2022-03-05 15:29:53 Outpatient R TRAN GRACIA EMILY [facility] [id number] [facility] 2022-03-05 13:45:00 2022-03-05 13:45:00 Outpatient R TRAN GRACIA EMILY [facility] [id number] [facility] 2022-03-05 00:00:00 2022-03-05 00:00:00 Orders Only Doctor Unassigned, [place] [facility] 1.114 350.1.13.10 4.2.7.2.686 [id number] [id number] [facility] 2021-12-21 20:20:00 2021-12-21 20:20:00 Outpatient R [facility] [id number] [facility] 2021-09-27 11:15:00 2021-09-27 15:02:00 Emergency X ANGÉLICA PELAYO [facility] ERT [id number] [facility] 2021-09-27 11:15:00 2021-09-27 15:02:00 Emergency Angélica Pelayo [facility] 1..114 350.1.13.10 4.2.7.2.686 [id number] [id number] [facility] 2021-09-27 00:00:00 2021-09-27 00:00:00 Orders Only Doctor Unassigned, [place] [facility] 1..114 350.1.13.10 4.2.7.2.686 [id number] [id number] [facility] 2021-05-03 13:05:08 2021-05-03 14:38:12 Office Visit Greer Mendez [facility] CYBER SECURITY ADMINISTRATOR [facility] MATERNAL & CHILD [facility] 1.2840.114 350.1.13.10 4.2.7.2.686 [id number] 107 [id number] [facility] 2021-05-03 13:15:00 2021-05-03 13:15:00 Outpatient R GREER MENDEZ [facility] [id number] [facility] 2021-04-03 00:00:00 2021-04-03 00:00:00 Telephone Kitty Clark 1.2840.114 350.1.13.10 4.2.7.2.686 [id number] [facility] 2021-03-25 23:08:00 2021-03-25 23:46:00 Emergency Angélica Pelayo [facility] 1.20.114 350.1.13.10 4.2.7.2.686 [id number] [facility] 2021-03-25 23:08:00 2021-03-25 23:46:00 Emergency X ANGÉLICA PELAYO [facility] ERT [id number] [facility] 2021-03-08 00:00:00 2021-03-08 00:00:00 Telephone Greer Mendez [facility] CYBER SECURITY ADMINISTRATOR [facility] 1.2840.114 350.1.13.10 4.2.7.2.686 [id number] 107 [id number] [facility] 2021-03-02 00:00:00 2021-03-02 00:00:00 Telephone Tran Felix [facility] CYBER SECURITY ADMINISTRATOR [facility] MATERNAL & CHILD [facility] 1.2840.114 350.1.13.10 4.2.7.2.686 [id number] 107 [id number] [facility] 2021-02-07 13:15:00 2021-02-07 13:15:00 Outpatient R GREER MENDEZ [facility] [id number] [facility] 2021-01-24 00:16:00 2021-01-24 02:29:00 Emergency Lois Centeno [facility] 1.2.840.114 350.1.13.10 4.2.7.2.686 [id number] [facility] 2021-01-24 00:16:00 2021-01-24 02:29:00 Emergency Lois Centeno [facility] 1.2.840.114 350.1.13.10 4.2.7.2.686 [id number] 2021-01-24 00:00:00 2021-01-24 00:00:00 Orders Only Doctor Unassigned, [place] [facility] 1.2.840.114 350.1.13.10 4.2.7.2.686 [id number] [id number] [facility] 2021-01-24 00:00:00 2021-01-24 00:00:00 Orders Only Doctor Unassigned, [place] [facility] 1.2.840.114 350.1.13.10 4.2.7.2.686 [id number] [id number] 2021-01-23 00:00:00 2021-01-23 00:00:00 Orders Only Doctor Unassigned, [place] [facility] 1.2.840.114 350.1.13.10 4.2.7.2.686 [id number] [id number] [facility] 2021-01-23 00:00:00 2021-01-23 00:00:00 Orders Only Doctor Unassigned, [place] [facility] 1.2.840.114 350.1.13.10 4.2.7.2.686 [id number] [id number] 2021-01-03 21:27:00 2021-01-03 23:45:00 Emergency Dedra Felix [facility] 1.2.840.114 350.1.13.10 4.2.7.2.686 [id number] [facility] 2021-01-03 21:27:00 2021-01-03 23:45:00 Emergency Dedra Felix [facility] 1.2.840.114 350.1.13.10 4.2.7.2.686 [id number] [id number] 2021-01-02 14:10:00 2021-01-02 19:43:00 Emergency Lois Centeno [facility] 1.2.840.114 350.1.13.10 4.2.7.2.686 [id number] 084 [id number] [facility] 2021-01-02 14:10:00 2021-01-02 19:43:00 Emergency Lois Centeno [facility] 1.2.840.114 350.1.13.10 4.2.7.2.686 [id number] 2021-01-02 00:00:00 2021-01-02 00:00:00 Orders Only Doctor Unassigned, [place] [facility] 1.2.840.114 350.1.13.10 4.2.7.2.686 [id number] [id number] [facility] 2021-01-02 00:00:00 2021-01-02 00:00:00 Orders Only Doctor Unassigned, [place] [facility] 1.2.840.114 350.1.13.10 4.2.7.2.686 [id number] [id number] 2020-11-20 00:00:00 2020-11-20 00:00:00 Patient Secure Msg Doctor Unassigned, [place] [facility] CYBER SECURITY ADMINISTRATOR [facility]ERNAL & CHILD [facility] 1.2.840.114 350.1.13.10 4.2.7.2.686 [id number] [facility] 2020-11-18 00:00:00 2020-11-18 00:00:00 Patient Secure Msg Doctor Unassigned, [place] [facility] 1.2.840.114 350.1.13.10 4.2.7.2.686 [id number] [facility] 2020-11-17 14:30:00 2020-11-17 14:30:00 Outpatient R GREER MENDEZ [facility] [id number] [facility] 2020-11-13 00:00:00 2020-11-13 00:00:00 Patient Secure Msg Doctor Unassigned, [place] [facility] CYBER SECURITY ADMINISTRATOR [facility] 1..840.114 350.1.13.10 4.2.7.2.686 [id number] [facility] 2020-11-07 14:03:28 2020-11-07 14:54:11 Office Visit Greer Mendez [facility] 1.2.840.114 350.1.13.10 4.2.7.2.686 [id number] 107 [id number] 2020-11-07 14:03:28 2020-11-07 14:54:11 Office Visit Greer Mendez [facility] 1.840.114 350.1.13.10 4.2.7.2.686 [id number] 107 [id number] [facility] 2020-11-07 14:00:00 2020-11-07 14:00:00 Outpatient R GREER MENDEZ [facility] [id number] [facility] 2020-11-07 14:00:00 2020-11-07 14:00:00 Outpatient R GREER MENDEZ [facility] [id number] [facility] 2020-11-03 00:00:00 2020-11-03 00:00:00 Patient Secure Msg Doctor Unassigned, [place] [facility] CYBER SECURITY ADMINISTRATOR [facility] MATERNAL & CHILD [facility] 1..840.114 350.1.13.10 4.2.7.2.686 [id number] [facility] 2020-11-02 10:00:00 2020-11-02 10:00:00 Outpatient R [facility] [id number] [facility] 2020-11-02 10:00:00 2020-11-02 10:00:00 Outpatient R CARY CABELLO [facility] [id number] [facility] 2020-11-02 00:00:00 2020-11-02 00:00:00 Patient Secure Msg Doctor Unassigned, [place] [facility] 1..840.114 350.1.13.10 4.2.7.2.686 [id number] [facility] 2020-10-30 00:00:00 2020-10-30 00:00:00 Patient Secure Msg Doctor Unassigned, [place] [facility] 1.840.114 350.1.13.10 4.2.7.2.686 [id number] [facility] 2020-10-27 00:00:00 2020-10-27 00:00:00 Telephone Tran Felix [facility] CYBER SECURITY ADMINISTRATOR [facility] MATERNAL & CHILD [facility] 1.840.114 350.1.13.10 4.2.7.2.686 [id number] [facility] 2020-10-26 15:30:00 2020-10-26 15:30:00 Outpatient TRAN AMADOR [facility] [id number] [facility] 2020-10-26 15:30:00 2020-10-26 14:57:36 Outpatient TRAN AMADOR [facility] [id number] [facility] 2020-10-26 14:29:31 2020-10-26 14:57:36 Office Visit Tran Felix [facility] CYBER SECURITY ADMINISTRATOR [facility] 1.2840.114 350.1.13.10 4.2.7.2.686 [id number] [facility] 2020-10-26 00:00:00 2020-10-26 00:00:00 Patient Secure Msg Doctor Unassigned, [place] [facility] 1.840.114 350.1.13.10 4.2.7.2.686 [id number] [facility] 2020-10-26 00:00:00 2020-10-26 00:00:00 Orders Only Doctor Unassigned, [place] [facility] 1.840.114 350.1.13.10 4.2.7.2.686 [id number] [facility] 2020-10-25 06:30:53 2020-10-25 23:59:00 Hospital Encounter Greer Mendez [facility] 1.840.114 350.1.13.10 4.2.7.2.686 [id number] [facility] 2020-10-25 00:00:00 2020-10-25 23:59:00 Outpatient R GREER MENDEZ [facility] [id number] [facility] 2020-10-25 00:00:00 2020-10-25 23:59:00 Outpatient R GREER MENDEZ [facility] [id number] [facility] 2020-10-25 00:00:00 2020-10-25 00:00:00 Outpatient R GREER MENDEZ [facility] [id number] [facility] 2020-10-20 14:30:00 2020-10-20 14:30:00 Outpatient R GREER MENDEZ [facility] [id number] [facility] 2020-10-20 08:18:28 2020-10-20 09:27:15 Office Visit CalebkellyGreer beaver [facility] CYBER SECURITY ADMINISTRATOR [facility] 1.2.840.114 350.1.13.10 4.2.7.2.686 [id number] [facility] 2020-10-20 00:00:00 2020-10-20 00:00:00 Orders Only Doctor Unassigned, [place] [facility] 1.2.840.114 350.1.13.10 4.2.7.2.686 [id number] [facility] 2020-10-16 00:00:00 2020-10-16 00:00:00 Telephone Pcp, Patient Does Not Have A [facility] CYBER SECURITY ADMINISTRATOR [facility] 1.2840.114 350.1.13.10 4.2.7.2.686 [id number] 107 [id number] [facility] 2019-11-16 00:00:00 2019-11-16 00:00:00 Telephone Any Henriquez [facility] 1.840.114 350.1.13.10 4.2.7.2.686 [id number] [facility] 2019-11-16 00:00:00 2019-11-16 00:00:00 Telephone Pob1, Acute Care [facility] 1.840.114 350.1.13.10 4.2.7.2.686 [id number] [facility] 2019-11-11 09:53:53 2019-11-11 11:56:02 Office Visit Pob1, Acute Care Clinic Any Henriquez [facility] 1.840.114 350.1.13.10 4.2.7.2.686 [id number] [facility] 2019-11-11 09:20:00 2019-11-11 09:20:00 Outpatient R [facility] [id number] [facility] 2019-10-18 14:00:00 2019-10-18 14:00:00 Outpatient R LAURA MCLEAN [facility] [id number] [facility] Results Test Description Test Time Test Comments Results Result Co mments Source [facility] [id number] 17:56:51 EXAM: XR ABDOMEN ACUTE SERIES HISTORY: 43 years-old Female; Provided indication: nausea, feverconstipation . TECHNIQUE: AP and lateral views of the chest were obtained. Upright andsupine views of theabdomen were obtained. COMPARISON: None FINDINGS: The lungs are clear and well-expanded. No focal consolidation or pleuralabnormality is visualized. The cardiomediastinal silhouette is normal. No intraperitoneal free air is seen on upright imaging. The bowel gaspattern is unremarkable. No acute osseous abnormality is detected.[id number] 17:27:00* Test Item Value Reference Range Interpretation Comme [facility] POCT PREG (test code = 1605) Negative On board controls acceptable with C Line (test code = 3574) Yes POCT PREG LOT # (test code = 3575) [id number] POCT PREG TEST DATE ( test code = 3576) 11/30/2024 Lab Interpretation (test cod e = 83649-7) Normal [facility] [id number] 04:29:12* Test Item Value Reference Range Interpretation Comme nts WBC (test code = 6690-2) See_Comment [Automated messa ge] The system which generated this result transmitted reference range: 4.30 - 11.10 10*3/?L. The reference range was not used to interpret this result as normal/abnormal. RBC (test code = 789-8) See_Comment [Automated messa ge] The system which generated this result transmitted reference range: 3.93 - 5.25 10*6/?L. The reference range was not used to interpret this result as normal/abnormal. HGB (test code = 718-7) 11.8 g/dL 11.6-15.0 HCT (test code = 4544-3) 34.3 % 35.7-45.2 L MCV (test code = 787-2) 85.5 fL 80.6-95.5 MCH (test code = 785-6) 29.4 pg 25.9-32.8 MCHC (test code = 786-4) 34.4 g/dL 31.6-35.1 RDW-SD (test code = 75789-8) 39.6 fL 39.0-49.9 RDW-CV (test code = 788-0) 12.7 % 12.0-15.5 PLT (test code = 777-3) See_Comment [Automated ExaqtWorlda ge] The system which generated this result transmitted reference range: 166 - 358 10*3/?L. The reference range was not used to interpret this result as normal/abnormal. MPV (test code = 41492-6) 8.8 fL 9.5-12.9 L NRBC/100 WBC (test code = 0109162898) See_Comment [Automated Tiggly ssage] The system which generated this result transmitted reference range: 0.0 - 10.0 /100 WBCs. The reference range was not used to interpret this result as normal/abnormal. NRBC x10^3 (test code = 5471702753) See_Comment [Automated ExaqtWorlda ge] The system which generated this result transmitted reference range: 10*3/?L. The reference range was not used to interpret this result as normal/abnormal. GRAN MAT (NEUT) % (test code = 770-8) 66.2 % IMM GRAN % (test code = 2345120018) 0.50 % LYMPH % (test code = 736-9) 27.1 % MONO % (test code = 5905-5) 4.9 % EOS % (test code = 713-8) 0.9 % BASO % (test code = 706-2) 0.4 % GRAN MAT x10^3(ANC) (test code = 0646820906) 5.29 10*3/uL 1.88-7.09 IMM GRAN x10^3 (test code = 6091468361) 0.04 10*3/uL 0.00-0.06 LYMPH x10^3 (test code = 731-0) 2.16 10*3/uL 1.32-3.29 MONO x10^3 (test code = 742-7) 0.39 10*3/uL 0.33-0.92 EOS x10^3 (test code = 711-2) 0.07 10*3/uL 0.03-0.39 BASO x10^3 (test code = 704-7) 0.03 10*3/uL 0.01-0.07 Lab Interpretation (test code = 35813-1) Abnormal [facility]. METABOLIC PANEL (91274)2022-08-28 04:02:10* Test Item Value Reference Range Interpretation Comme nts NA (test code = 0001001943) 139 mmol/L 135-145 K (test code = 1222714333) 4.1 mmol/L 3.5-5.0 CL (test code = 8509531814) 102 mmol/L 98-108 CO2 TOTAL (test code = 2805957784) 26 mmol/L 23-31 AGAP (test code = 1602367893) 2-16 BUN (test code = 7933209770) 15 mg/dL 7-23 GLUCOSE (test code = 1096799742) 75 mg/dL 70-110 CREATININE (test code = 2466202926) 0.85 mg/dL 0.50-1.04 TOTAL BILI (test code = 8642024495) 0.4 mg/dL 0.1-1.1 CALCIUM (test code = 2358875603) 8.7 mg/dL 8.6-10.6 T PROTEIN (test code = 5113476353) 7.7 g/dL 6.3-8.2 ALBUMIN (test code = 3206400348) 4.6 g/dL 3.5-5.0 ALK PHOS (test code = 7340389404) 62 U/L 34-122 ALTv (test code = 1742-6) 17 U/L 5-35 AST(SGOT) (test code = 3583744580) 21 U/L 13-40 eGFR (test code = 5729975982) mL/min/1.73m2 JADEN (test code = JADEN) Association of [...] or urine or abnormalities in imaging tests). [facility] 04:01:49* Test Item Value Reference Range Interpretation Comme nts LIPASE (test code = 0295571760) 82 U/L 0-220 Lab Interpretation (test cod e = 89073-9) Normal [facility]OLIC PAN[facility] (60471)2022-08-24 04:21:59* Test Item Value Reference Range Interpretation Comme nts NA (test code = 0698219974) 136 mmol/L 135-145 K (test code = 7637185976) 3.9 mmol/L 3.5-5.0 CL (test code = 5469132835) 98 mmol/L 98-108 CO2 TOTAL (test code = 6215265848) 31 mmol/L 23-31 AGAP (test code = 9134314732) 2-16 BUN (test code = 8923633745) 21 mg/dL 7-23 GLUCOSE (test code = 5763981138) 91 mg/dL 70-110 CREATININE (test code = 4163307914) 0.77 mg/dL 0.50-1.04 TOTAL BILI (test code = 9717192815) 0.4 mg/dL 0.1-1.1 CALCIUM (test code = 4502690290) 9.0 mg/dL 8.6-10.6 T PROTEIN (test code = 0278405542) 7.5 g/dL 6.3-8.2 ALBUMIN (test code = 5980491322) 4.3 g/dL 3.5-5.0 ALK PHOS (test code = 4665904887) 70 U/L 34-122 ALTv (test code = 1742-6) 15 U/L 5-35 AST(SGOT) (test code = 8985042779) 19 U/L 13-40 eGFR (test code = 3511113050) mL/min/1.73m2 JADEN (test code = JADEN) Association of [...] or urine or abnormalities in imaging tests). [facility] 04:21:59* Test Item Value Reference Range Interpretation Comme nts LIPASE (test code = 9254807724) 66 U/L 0-220 Lab Interpretation (test cod e = 73238-1) Normal [facility] WITH [id number] 03:50:59* Test Item Value Reference Range Interpretation Comme nts WBC (test code = 6690-2) See_Comment [Automated messa ge] The system which generated this result transmitted reference range: 4.30 - 11.10 10*3/?L. The reference range was not used to interpret this result as normal/abnormal. RBC (test code = 789-8) See_Comment [Automated messa ge] The system which generated this result transmitted reference range: 3.93 - 5.25 10*6/?L. The reference range was not used to interpret this result as normal/abnormal. HGB (test code = 718-7) 12.9 g/dL 11.6-15.0 HCT (test code = 4544-3) 38.7 % 35.7-45.2 MCV (test code = 787-2) 86.2 fL 80.6-95.5 MCH (test code = 785-6) 28.7 pg 25.9-32.8 MCHC (test code = 786-4) 33.3 g/dL 31.6-35.1 RDW-SD (test code = 77850-1) 39.7 fL 39.0-49.9 RDW-CV (test code = 788-0) 12.7 % 12.0-15.5 PLT (test code = 777-3) See_Comment [Automated messa ge] The system which generated this result transmitted reference range: 166 - 358 10*3/?L. The reference range was not used to interpret this result as normal/abnormal. MPV (test code = 16182-3) 8.6 fL 9.5-12.9 L NRBC/100 WBC (test code = 1607452819) See_Comment [Automated Tiggly ssage] The system which generated this result transmitted reference range: 0.0 - 10.0 /100 WBCs. The reference range was not used to interpret this result as normal/abnormal. NRBC x10^3 (test code = 5296907159) See_Comment [Automated messa ge] The system which generated this result transmitted reference range: 10*3/?L. The reference range was not used to interpret this result as normal/abnormal. GRAN MAT (NEUT) % (test code = 770-8) 62.8 % IMM GRAN % (test code = 2858791468) 0.30 % LYMPH % (test code = 736-9) 29.7 % MONO % (test code = 5905-5) 6.3 % EOS % (test code = 713-8) 0.5 % BASO % (test code = 706-2) 0.4 % GRAN MAT x10^3(ANC) (test code = 8671889692) 4.85 10*3/uL 1.88-7.09 IMM GRAN x10^3 (test code = 4608483468) 0.00-0.06 LYMPH x10^3 (test code = 731-0) 2.29 10*3/uL 1.32-3.29 MONO x10^3 (test code = 742-7) 0.49 10*3/uL 0.33-0.92 EOS x10^3 (test code = 711-2) 0.04 10*3/uL 0.03-0.39 BASO x10^3 (test code = 704-7) 0.03 10*3/uL 0.01-0.07 Lab Interpretation (test code = 79767-9) [facility]* Test Item Value Reference Range Interpretation Comme nts POCT PREG (test code = 1605) negative On board controls acceptable with C Line (test code = 3574) positive POCT PREG LOT # (test code = 3575) [id number] POCT PREG TEST DATE ( test code = 3576) 11/23/2023 Lab Interpretation (test cod e = 66912-2) Normal [facility] Notes Date/Time Note Provider Source 2023-11-19 16:49:01 [id number]Plf/jj8g z0euGLQCFd3KSbgFuEwmddcBf3187-15-88J23: 49:01 Pt left prior to receiving discharge paperwork. 11570-4Cajjnxozs department EfzgPO4398-75-14M02:49[facility] NoteTXT1.2.840.154084.1.13.104.2.7.2.72 7879|[id number] for patient goof60257-8FzizDDVPVVPPPUTCwuxobiij C-CDA narrative text[address] Rp[id number] XOXXWRTBFAHPCBJWZZA9515-05-90B37:49:141 .2.840.827459.1.72.3.15|1.2.840.408494. 1.13.104.2.7.2.727879_[id number] [facility] 2023-11-19 15:16:28 hy/OYq/eWw2sgJrWLGkvMF7ennoiRltvE5/eZki L/LxplIJMrwjQvh7ai+Us+Skn1602-53-31T41: 16:28 Pt to ED CO frequency, urgency, constipation, and abdominal pain x 2 days. Denies N/V/D. Denies sick contacts. Hx of fecal incontinence, PID, and kidney infections.Pt given urine cup. 89067-8Bvdkdwaho department Triage xhecOS8777-64-60G30:21:24[facility] noteTXT1.2.840.037266.1.13.104.2.7.2.72 7879|[id number] for patient eqlc59607-1Ejrndqwqf department NoteLNNARRATIVEFormatted C-CDA narrative [id number] R Goodrich RNUT[address] [id number] MPODVTTPGEQNGGPHDYJ6531-33-77D86:21:241 .2.840.481329.1.72.3.15|1.2.840.283215. 1.13.104.2.7.2.727879_[id number] Emerita Burleson RN [facility] 2023-10-28 13:25:15 p/sDuSP0H4/JP2pegjERyClCKGUkU0FfrB6QxuK bvwSqOVNbe0spcVfisxM3Qqwj3742-40-69X75: 25:15 Pt given printed and verbal discharge instructions regarding Constipation, Influenza, encouraged hydration,3 Prescriptions providedDiscussed ibuprofen and to take with food to avoid GI distress.Pt verbalized understanding of instructions, pt awake alert oriented, resp reg unlabored, skin w/d, color appropriate for race, moves all ext well,pt encouraged to follow up with pcpAdvised to seek medical attention for new/prolonged/worsening of symptoms,No adverse reaction to meds given in ER noted upon dischargeAwake, alert oriented, resp reg unlabored, skin w/d, pt leaving amb with steady gait, in no apparent distress, 42253-4Hyvnhjloz department BdxjJA6577-93-15K04:25:41Emergen department NoteTXT1.2.840.584419.1.13.104.2.7.2.72 7879|[id number] for patient jjpp51398-0ZswqJYCCOOGGHFOOesjkwdng C-CDA narrative text[id number] DEXEJXDKOAVNLTINCTL2054-18-80Z73:25:411 .2.840.057320.1.72.3.15|1.2.840.766978. 1.13.104.2.7.2.727879_[id number] [facility] 2023-10-28 11:07:15 egca0c4vJmpieV6aCesUhRQFiSzupzlMYPUH6R/ kumGiE4yV24tVHVM1syJCfrhe9508-24-82F29: 07:15 Patient with fever, chills, abdominal pain, sneezing, constipation. Hx of bladder infections 17927-5Evhlorfiz department Triage zidmEX6846-89-23Y69:09:22[facility] Triage noteTXT1.2.840.443921.1.13.104.2.7.2.72 7879|[id number] for patient xaqk42883-6Lxjolsqqi department NoteLNNARRATIVEFormatted C-CDA narrative [id number] M Hayes RN[address] Uehb[id number] EJZBADIODMVGRPUTBAO9555-39-37U61:09:221 .2.840.284728.1.72.3.15|1.2.840.564621. 1.13.104.2.7.2.727879_[id number] Arelis Lugo RN [facility] 2023-10-28 11:00:00 9PYUZauLUvrBIE+rKwF6LBqsAY8HjnwlAJxbuzU niPMFXJOhRwfeLMFc10p2WYDN4738-75-63R26: 00:00 [facility] Emergency Department NotePatient Name: Lulu Monroy of : 1980 43 year old femaleTreatment [facility]: [facility] Record Number: [id number] Care Physician: PATIENT DOES NOT HAVE A PCPPatient Escorted by: Family [5]Mode of Arrival: Personal means [1]EMS Treatment Prior to ED Arrival:Travel and Exposure Screening:SymptomsDoes patient have any of these symptoms?: (not recorded)Exposure ScreeningHas patient had contact with someone with a communicable disease in the last month?: (not recorded)Diseases exposed to:: (not recorded)Is Patient ?: (not recorded)Exposure Date: (not recorded)Chief Complaint:Chief ComplaintPatient presents withConstipationViral SyndromeHistory of Present Illness:Pt here for 'extremely high fevers' and constipation she has been having mucous stools in the past she has had uti an is unsure if that is related, she has runny nose cough cold congestion significatn other also sickHas global fatigue, nausea, and fevers,Not taking any meds for itNo previous surgeries, denies chance of pregnancyHas runny nose cough cold fever chills and constipation with concerns of mucous in stool and utiPast Medical History/Immunizations:Past Medical History:Diagnosis DateAnxiety 2017not on medsChlamydiaDepression 2017Osteoarthritispt states in her backPap smear abnormality of cervix pap wnlTraumaAllergies:AllergiesAllergen ReactionsPcn [Penicillins] HivesPast Social History:Tobacco UseNever smoked or used smokeless tobacco.Alcohol UseYes.Comments: occasional-holidaysDrug UseNo.Sexual ActivitySexually active; Partners: Male; Control/Protection: None.Comments: Last intecourse: 3Past Surgical History:Past Surgical History:Procedure Laterality DateBREAST RECONSTRUC W OTHR TECHNIQ 2018COSMETIC SURGERY 2020Brazilian butt lift and liposuctionReview of Systems:Review of SystemsConstitutional: Positive for appetite change, chills, fatigue and fever.HENT: Positive for congestion and rhinorrhea.Respiratory: Positive for cough.Gastrointestinal: Positive for constipation.All other systems reviewed and are negative.Physical Exam:ED Triage Vitals [10/28/23 1108]Weight 60.8 kg (134 lb)Actual or estimatedHeight 1.6 m (5' 3")BP (!) 148/85Pulse 106Resp 22Temp 36.8 ?C (98.2 ?F)Temp source OralSpO2 100 %Measured on Room airPhysical ExamVitals and nursing note reviewed.Constitutional:Appearance: She is normal weight.HENT:Head: Normocephalic.Right Ear: External ear normal.Left Ear: External ear normal.Nose: Nose normal.Mouth/Throat:Mouth: Mucous membranes are moist.Eyes:Extraocular Movements: Extraocular movements intact.Pupils: Pupils are equal, round, and reactive to light.Cardiovascular:Rate and Rhythm: Normal rate and regular rhythm.Pulses: Normal pulses.Pulmonary:Effort: Pulmonary effort is normal.Abdominal:General: Abdomen is flat.Palpations: Abdomen is soft.Musculoskeletal:General: No swelling or deformity. Normal range of motion.Cervical back: Normal range of motion.Skin:General: Skin is warm.Capillary Refill: Capillary refill takes less than 2 seconds.Neurological:General: No focal deficit present.Mental Status: She is alert and oriented to person, place, and time.Radiology:No orders to displayLab Results:Lab Results - No data to displayEKG:If EKG completed, see Procedure Note.Orders and Treatments:Orders Placed This EncounterProceduresXR ABDOMEN ACUTE SERIESCOVID-19 (ID NOW TESTING)RAPID INFLUENZA A/BUrinalysisPOCT TestOrders Placed This EncounterMedicationsondansetron (ZOFRAN-ODT) disintegrating tablet 8 mgFirst Provider Eval:ED EventsDate/Time Event User Pbiivhvt12/05/24 1109 Medical Screening Begins AMRITA BOATENG MD --10/28/23 1109 First Provider Evaluation AMRITA BOATENG MD --ED COURSEDiagnosis/Impression as of 10/28/23 1256Fever and chillsInfluenza AOther constipationProcedures:ProceduresMDM:Me dical Decision MakingPt here for 'extremely high fevers' and constipation she has been having mucous stools in the past she has had uti an is unsure if that is related, she has runny nose cough cold congestion significatn other also sickHas global fatigue, nausea, and fevers,Not taking any meds for itNo previous surgeries, denies chance of pregnancyHas runny nose cough cold fever chills and constipation with concerns of mucous in stool and utiDdx uti constipation bronchitisPt has no fever here, she has flu aNo constipation or evidence of obstructionMeds sent to pharmacyStable exam stable vitals meds to examProblems Addressed:Fever and chills:Details: Covid flu uaInfluenza A:Details: Tamiflu sentOther constipation:Details: Three view abd and lactulos sent to pharmacyAmount and/or Complexity of Data ReviewedLabs: ordered. Decision-making details documented in ED Course.Details: Flu a positive, not normal uaRadiology: ordered.Details: Normal 3 view abdRiskOTC drugs.Prescription drug management.Flowsheet Documentation:Scoring Tools:No data recordedDisposition/Condition:ED DispositionNoneDischarge Medications:Patient's MedicationsNo medications on fileFollow-up:Electronically signed by:Amrita Boateng MD10/28/23 1307 10783-0Tltbqzrwb Emergency department DlneIX8231-92-64Z92:07:54[facility] department NoteTXT1.2.840.556529.1.13.104.2.7.2.72 7879|[id number] for patient erab73453-7Dciyenfhp department NoteLNNARRATIVEFormatted C-CDA narrative text[address] Bj[id number] SQBKKZQBCVYXDXMEJLZ1591-06-86W05:07:541 .2.840.974684.1.72.3.15|1.2.840.597621. 1.13.104.2.7.2.727879_[id number] [facility] 2023-09-06 18:56:05 pPlyoZkGwwWkGlGszRM1uQLRBSWQaQp666TTP/7 HeUJFTteVjZV8rX/cS3ze8D+J3009-45-80B83: 56:05 Patient called from [facility] by Dr. House and by this RN no response. 56971-2Tffxfxuvb department FtuaQI2830-21-75S23:57:16[facility] NoteTXT1.2.840.673298.1.13.104.2.7.2.72 7879|[id number] for patient vabg68083-8CeqjNGFMOQHHCPMGwbqspzjb C-CDA narrative [id number] M Cruz RN[id number] FJYYPMLYULEJXPQEPCZ4221-91-68V95:57:161 .2.840.899469.1.72.3.15|1.2.840.431342. 1.13.104.2.7.2.727879_[id number] Tran Bazan [facility] 2023-09-06 16:10:00 vPHeNyFtWWhImC8QDdXoFHtX4/8fh1Q4Ye56xgr MmZ8QK21r27YxAGlWaWJjDFD73734-73-18B92: 10:00 Patient came in with complaints of cough, congestion, and sore throat since 3 days; on and off bilateral low back pain since over a year now and thinks that it's getting worse. 07390-4Wtidvwljj department Triage kfobUJ2317-14-60Q94:16:21Emeformerly [facility] department Triage noteTXT1.2.840.391665.1.13.104.2.7.2.72 7879|[id number] for patient hnqz23458-6Eaplqpicf department NoteLNNARRATIVEFormatted C-CDA narrative [id number] C Heredia [id number] LMPKALTQKLGKVPECCPO3524-49-39H74:16:211 .2.840.230485.1.72.3.15|1.2.840.868505. 1.13.104.2.7.2.727879_[id number] Hannygarry Elaine RN [facility] 2023-05-12 16:11:43 45AnWbxK3ACNt1onwEYeim2Ev/V6sBRARojVfl8 /MW1x141Qs/jzI91/AkQmStAQ0348-71-86D33: 11:43 Called pt, notified of results and poc. Number provided for radiology. Pt verbalized understanding.Maritza Molina RN 05/12/23 4:11 PM 92266-4Rjrpzeqkj encounter PkfbXM9137-77-61Z43:13:28Telephone encounter NoteTXT1.2.840.534735.1.13.104.2.7.2.72 7879|[id number] for patient tvmr31294-0EoeqNT782231477Zwqhljpt Hernandez RN[address] Bh[id number] XEBJLYIGJJYGVSWWDAB1871-94-05L85:13:281 .2.840.109855.1.72.3.15|1.2.840.902095. 1.13.104.2.7.2.727879_[id number] Maritza Molina RN [facility] 2023-05-12 15:45:12 h0QVCbgmqiJ6tRswtykyATSrsGIOuelHKTID/tn Gjgotu0YLctlPPV49CCOx3zuu3313-72-06M74: 45:12 Orders placedimpression:Right asymmetry for which additional imaging recommended. Negative left breast. Recommendation:Tomosynthesis spot compression with possible ultrasound - RightAnnual mammographic follow-up - ANGEL Atkinson 05/12/2023 3:46 PM 80640-0Zwxzugeog encounter UwxxUI9043-81-23V07:46:33Telephone encounter NoteTXT1.2.840.075245.1.13.104.2.7.2.72 7879|[id number] for patient wzez55785-7JiagVZOHSWUFCP[id number] LTMDKPSAVEUPINCOXQI3164-06-89D07:46:331 .2.840.921671.1.72.3.15|1.2.840.347561. 1.13.104.2.7.2.727879_[id number] [facility] 2023-05-12 10:26:32 hPKnKZiAFpAOS5ZkqqJxjk/6T03S+i2o7qGuMnf dTpRhlbAAg0f+Prptsu78P8zw5699-27-96Z73: 26:32 Lulu Horn is a 42 year old female is requesting a callback. Patient says that she got mammogram results and is needing to get more testing done. Please callback. Thank you. 31933-4Bjaginxdx encounter PmyyKR0108-54-41U72:28:51Telephone encounter NoteTXT1.2.840.276701.1.13.104.2.7.2.72 7879|[id number] for patient ddfn56706-2XobnCB374923067Opiprq [id number] RVXZSQXWLHEXJGAZNWA3953-90-78T09:28:511 .2.840.787130.1.72.3.15|1.2.840.910478. 1.13.104.2.7.2.727879_[id number] Saira Cosme [facility] 2023-05-09 08:56:01 Yvz6CK5HMVbf6uqXm5y9xLaX+6v/hi8BP7n4AdF K/Y+EWafAMIXaJerYAOJj45LI6107-66-76M71: 56:01 Called pt, advised mammogram results not finalized. Pt verbalized understanding.Maritza Molina RN 05/09/23 8:56 AM 83778-7Wmxaiqlay encounter KuceOY9251-97-85P44:56:34Telephone encounter NoteTXT1.2.840.601301.1.13.104.2.7.2.72 7879|[id number] for patient ovle44581-9QykjKA779296440Wvededyd Hernandez RN[address] DrmnBdi[id number] PFEOJSMRGPTYWASBNNY7346-57-94N76:56:341 .2.840.636928.1.72.3.15|1.2.840.631033. 1.13.104.2.7.2.727879_[id number] Maritza Molina RN [facility] 2023-05-08 16:43:31 VA9WH03UMBtGnm1IVlJ65XiZonxBXqSVHDoNMLo 8LRtgy0zvTvSOwukNKzSj3xQ61032-58-49R07: 43:31 Lulu Horn is a 42 year old femalePt requesting Mammogram resultsPlease call [phone] signed by Cathy Dai at 05/08/2023 4:44 PM JOU62743-6Zodadjjvz encounter SljhBB7145-81-18T96:44:50Telephone encounter NoteTXT1.2.840.794221.1.13.104.2.7.2.72 7879|[id number] for patient vzsa20835-9BmmyJO017296284Jvbo Bazan [address] CxduKmxhnmxybElgesewlkKBSS2099123223NOZ YQPFWIEZWZUTCMSOKMY1703-56-66R37:44:501 .2.840.269856.1.72.3.15|1.2.840.241518. 1.13.104.2.7.2.727879_[id number] Cathymarzena [facility]
[2023-11-19 23:00] LABS: Specific Gravity 1.016 (1.005-1.030); Urine Bilirubin NEGATIVE (Negative); Urine Blood Negative (Negative); Urine Clarity Clear (Clear); Urine Color Light-Yellow (Yellow); Urine Glucose NEGATIVE (Negative); Urine Ketones NEGATIVE (Negative); Urine Microscopic Reflex YN NO UMIC; Urine Nitrite NEGATIVE (Negative); Urine Protein NEGATIVE (Negative); Urine Urobilinogen Normal (Normal); Urine pH 6.5 (5.0-7.0)
[2023-11-19 23:04] LABS: Absolute Basophils 0.1 K/uL (0-0.5); Absolute Eosinophils 0.1 K/uL (0-0.5); Absolute Lymphocytes (CBC) 1.7 K/uL (0.7-4.9); Absolute Monocytes 0.6 K/uL (0.1-1.3); Absolute Neutrophil 10.4 K/uL (1.8-8.0); Basophils % 0.5 % (0-1.3); Eosinophils % 0.7 % (0-4.4); Hematocrit 36.3 % (36.0-45.0); Hemoglobin 12.3 g/dL (12.0-15.0); Lymphocytes % 12.9 % (15.3-44.8); MCH 29.4 pg (27.0-35.0); MCHC 33.9 g/dL (32.0-36.0); MCV 86.9 fL (80-100); MPV 6.8 fL (7.6-11.3); Monocytes % 4.7 % (3.3-12.3); Neutrophils % 81.2 % (41.7-73.7); Nucleated Red Blood Cells % 0.1 % (0-0); Platelets 311 thou/uL (152-406); RBC Red Blood Cell Count 4.18 M/uL (3.86-4.86); Red Cell Distribution Width 13.6 % (12.1-15.2)
[2023-11-19 23:06] LABS: Albumin 3.5 g/dL (3.4-5.0); Albumin/Globulin Ratio 0.8 (1.1-1.8); Anion Gap 7.8 mEq/L (5.0-15.0); Bilirubin Total 0.4 mg/dL (0.2-1.0); Globulin 4.3 g/dL (2.3-3.5); Potassium 3.8 mEq/L (3.5-5.1); Protein, Total 7.8 g/dL (6.4-8.2)
--- NOTE | 2023-11-20 00:24 | ER ---
Nurse's Notes [facility] Name: Lulu Barreto Age: 43 yrs Sex: Female : 1980 Arrival Date: 11/19/2023 Time: 22:04 Bed 8 Private MD: Diagnosis: Diverticulitis of intestine, part unspecified, without perforation or abscess without bleeding Presentation: 11/18 22:19 Chief complaint: Patient states: LLQ abdominal pain that radiates up onset 2 days ago. cm10 Pt reports urinary frequency. Coronavirus screen: Client denies travel out of the [place] in the last 14 days. At this time, the client does not indicate any symptoms associated with coronavirus-19. Ebola Screen: Patient denies travel to an Ebola-affected area in the 21 days before illness onset. No symptoms or risks identified at this time. Initial Sepsis Screen: Does the patient meet any 2 criteria? HR > 90 bpm. Does the patient have a suspected source of infection? No. Patient's initial sepsis screen is negative. Risk Assessment: Do you want to hurt yourself or someone else? Patient reports no desire to harm self or others. Onset of symptoms was November 17, 2023. 22:19 Method Of Arrival: Ambulatory cm10 22:19 Acuity: LUCY 3 cm10 Historical: - Allergies: 22:19 PENICILLINS; cm10 - PMHx: 22:19 Peyton; cm10 - PSHx: 22:19 Cosmetic; cm10 - Immunization history:: Adult Immunizations up to date. - Social history:: Smoking status: Patient denies any tobacco usage or history of. Screenin:47 [facility] ED Fall Risk Assessment (Adult) History of falling in the last 3 months, tm6 including since admission No falls in past 3 months (0 pts) Confusion or Disorientation No (0 pts) Intoxicated or Sedated No (0 pts) Impaired Gait No (0 pts) Mobility Assist Device Used No (0 pt) Altered Elimination No (0 pt) Score/Fall Risk Level 0 - 2 = Low Risk Oriented to surroundings, Maintained a safe environment. Abuse screen: Denies threats or abuse. Denies injuries from another. Nutritional screening: No deficits noted. Tuberculosis screening: No symptoms or risk factors identified. Assessment: 22:46 General: Appears uncomfortable, Behavior is calm, cooperative. Pain: Complains of pain tm6 in suprapubic area Pain currently is 7 out of 10 on a pain scale. Quality of pain is described as sharp. Neuro: Level of Consciousness is awake, alert, obeys commands, Oriented to person, place, time, situation. Cardiovascular: Capillary refill < 3 seconds Patient's skin is warm and dry. Respiratory: Airway is patent Respiratory effort is even, unlabored, Respiratory pattern is regular, symmetrical. GI: Abdomen is flat, non-distended, Bowel sounds present X 4 quads. Abdomen is tender to palpation in suprapubic area Reports lower abdominal pain. : No signs and/or symptoms were reported regarding the genitourinary system. EENT: No signs and/or symptoms were reported regarding the EENT system. Derm: No signs and/or symptoms reported regarding the dermatologic system. Musculoskeletal: No signs and/or symptoms reported regarding the musculoskeletal system. 23:54 Reassessment: No changes from previously documented assessment. Patient and/or family tm6 updated on plan of care and expected duration. Pain level reassessed. Patient is alert, oriented x 3, equal unlabored respirations, skin warm/dry/pink. 11/19 00:37 Reassessment: Patient and/or family updated on plan of care and expected duration. Pain tm6 level reassessed. Patient is alert, oriented x 3, equal unlabored respirations, skin warm/dry/pink. Vital Signs: 11/18 22:19 BP 113 / 84; Pulse 107; Resp 18; Temp 99.3(O); Pulse Ox 96% on R/A; Weight 64.41 kg; cm10 Height 5 ft. 3 in. ; Pain 6/10; 22:46 BP 124 / 88; Pulse 106; Pulse Ox 99% on R/A; Pain 7/10; tm6 23:52 BP 103 / 63; Pulse 94; Pulse Ox 100% on R/A; Pain 7/10; tm6 11/19 00:37 BP 122 / 87; Pulse 95; Resp 17; Temp 97.7(TE); Pulse Ox 99% on R/A; Pain 5/10; tm6 11/18 22:19 Body Mass Index 25.15 (64.41 kg, 160.02 cm) cm10 11/18 22:19 Pain Scale: Adult cm10 22:46 Pain Scale: Adult tm6 23:52 Pain Scale: Adult tm6 11/19 00:37 Pain Scale: Adult tm6 ED Course: 11/18 22:06 Patient arrived in ED. jj6 22:08 Sudheer Schneider MD is Attending Physician. sp4 22:10 Catrina Carranza FNP-C is [facility]. kb 22:19 Arm band placed on Patient placed in an exam room, on a stretcher. cm10 22:20 Triage completed. cm10 22:30 Ely Alves, SAMSON is Primary Nurse. tm6 22:45 Urinalysis w/ reflexes Sent. tm6 22:45 Test, Urine Sent. tm6 22:45 Lipase Sent. tm6 22:45 CMP Sent. tm6 22:45 CBC with Diff Sent. tm6 22:46 Inserted saline lock: 20 gauge in right antecubital area, using aseptic technique. oe Blood collected. 22:47 Patient has correct armband on for positive identification. Placed in gown. Bed in low tm6 position. Call light in reach. Side rails up X2. Provided Education on: plan of care. Client placed on continuous cardiac and pulse oximetry monitoring. NIBP monitoring applied. Pulse ox on. NIBP on. Door closed. Noise minimized. 22:47 Lights dimmed. tm6 23:42 CT Abd/Pelvis - IV Contrast Only In Process Unspecified. EDMS 11/19 00:37 No provider procedures requiring assistance completed. IV discontinued, intact, tm6 bleeding controlled, No redness/swelling at site. Pressure dressing applied. Administered Medications: 11/18 22:45 Drug: NS 0.9% IV 1000 ml IV at 1000 ml once Route: IV; Rate: 1000 ml; Site: right tm6 antecubital; 11/19 00:25 Follow up: IV Status: Completed infusion; IV Intake: 1000ml tm6 11/18 22:45 Drug: Ketorolac IVP 15 mg IVP once Route: IVP; Site: right antecubital; tm6 11/19 00:23 CANCELLED (Physician Discretion): hydrocodone-acetaminophen(7.5 mg-325 mg) 1 tabs PO kb once 00:36 Drug: Cephalexin PO 500 mg PO once Route: PO; tm6 00:36 Drug: metroNIDAZOLE PO 500 mg PO once Route: PO; tm6 Medication: 11/18 22:47 VIS not applicable for this client. tm6 Intake: 11/19 00:25 IV: 1000ml; Total: 1000ml. tm6 Outcome: 00:23 Discharge ordered by . kb 00:37 Discharged to home ambulatory, with family, tm6 00:37 Condition: stable 00:37 Discharge instructions given to patient, family, Instructed on discharge instructions, follow up and referral plans. medication usage, Demonstrated understanding of instructions, follow-up care, medications, Prescriptions given X 3, 00:38 Patient left the ED. tm6 Signatures: Dispatcher [employer] EDMS Catrina Carranza, [employer] Danilo Whitfield Jennifer jj6 Sudheer Schneider MD MD sp4 Madison Camejo, RN RN cm10 Ely Alves RN RN tm6
--- NOTE | 2023-11-20 00:24 | EDPHYS ---
Physician Documentation [facility] Name: Lulu Barreto Age: 43 yrs Sex: Female : 1980 Arrival Date: 11/19/2023 Time: 22:04 Bed 8 Private MD: ED Physician Sudheer Schneider HPI: 11/18 22:08 This 43 yrs old Female presents to ER via Unassigned with complaints of sp4 Fever, Abdominal Pain. 22:43 This 43 yrs old Female presents to ER via Ambulatory with complaints of Fever, kb Abdominal Pain. 22:43 Pt is a 43 year old female who presents with left abd pain that started 2 days ago. kb States she has chronic constipation, last BM yesterday. Denies fever, n/v/d. States she was seen at [place] [facility] today and they tested her urine which was normal. No serum labs or imaging was completed. . Historical: - Allergies: 22:19 PENICILLINS; cm10 - PMHx: 22:19 Marlee; cm10 - PSHx: 22:19 Cosmetic; cm10 - Immunization history:: Adult Immunizations up to date. - Social history:: Smoking status: Patient denies any tobacco usage or history of. ROS: 22:43 Constitutional: As per HPI kb Exam: 22:43 Constitutional: This is a well developed, well nourished patient who is awake, alert, kb and in no acute distress. Head/Face: Normocephalic, atraumatic. ENT: Moist Mucous membranes Cardiovascular: Regular rate Respiratory: Respirations even and unlabored. No increased work of breathing. Talking in full sentences Skin: Warm, dry with normal turgor. Normal color. MS/ Extremity: Pulses equal, no cyanosis. Neurovascular intact. Full, normal range of motion. Neuro: Awake and alert, GCS 15, oriented to person, place, time, and situation. Moves all extremities. Normal gait. 22:43 Abdomen/GI: Inspection: abdomen appears normal, Bowel sounds: normal, Palpation: soft, in all quadrants, mild abdominal tenderness, in the left upper quadrant and left lower quadrant, Vital Signs: 22:19 BP 113 / 84; Pulse 107; Resp 18; Temp 99.3(O); Pulse Ox 96% on R/A; Weight 64.41 kg; cm10 Height 5 ft. 3 in. ; Pain 6/10; 22:46 BP 124 / 88; Pulse 106; Pulse Ox 99% on R/A; Pain 7/10; tm6 23:52 BP 103 / 63; Pulse 94; Pulse Ox 100% on R/A; Pain 7/10; tm6 11/19 00:37 BP 122 / 87; Pulse 95; Resp 17; Temp 97.7(TE); Pulse Ox 99% on R/A; Pain 5/10; tm6 11/18 22:19 Body Mass Index 25.15 (64.41 kg, 160.02 cm) cm10 11/18 22:19 Pain Scale: Adult cm10 22:46 Pain Scale: Adult tm6 23:52 Pain Scale: Adult tm6 11/19 00:37 Pain Scale: Adult tm6 MDM: 11/18 22:09 Patient medically screened. sp4 22:43 Data reviewed: vital signs, nurses notes. 11/19 00:21 Differential diagnosis: viral Infection, UTI, gastroenteritis. Consideration of sp4 Admission/Observation Escalation of care including admission/observation considered. 00:22 Management of patient was discussed with the following: Dr Schneider recommends kb outpatient treatment. Pt in agreement. Pt educated on strict return precautions. verbal understanding received. . 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 11/18 22:09 Order name: CBC with Diff; Complete Time: 23:23 sp4 11/18 22:09 Order name: CMP; Complete Time: 23:23 sp4 11/18 22:09 Order name: Lipase; Complete Time: 23:23 sp4 11/18 22:09 Order name: Test, Urine; Complete Time: 23:23 sp4 11/18 22:09 Order name: Urinalysis w/ reflexes; Complete Time: 23:23 sp4 11/18 22:10 Order name: CT Abd/Pelvis - IV Contrast Only 11/18 22:09 Order name: IV Saline Lock; Complete Time: 22:45 sp4 11/18 22:09 Order name: Labs collected and sent; Complete Time: 22:45 sp4 Administered Medications: 11/18 22:45 Drug: NS 0.9% IV 1000 ml IV at 1000 ml once Route: IV; Rate: 1000 ml; Site: right tm6 antecubital; 11/19 00:25 Follow up: IV Status: Completed infusion; IV Intake: 1000ml tm6 11/18 22:45 Drug: Ketorolac IVP 15 mg IVP once Route: IVP; Site: right antecubital; tm6 11/19 00:23 CANCELLED (Physician Discretion): hydrocodone-acetaminophen(7.5 mg-325 mg) 1 tabs PO kb once 00:36 Drug: Cephalexin PO 500 mg PO once Route: PO; tm6 00:36 Drug: metroNIDAZOLE PO 500 mg PO once Route: PO; tm6 Disposition: 00:21 Co-signature as Attending Physician, Sudheer Schneider MD I agree with the assessment sp4 and plan of care. I reviewed the patient's care provided by Advanced Practice Provider \T\ agree w/ the diagnosis \T\ care plan. I personally saw the pt \T\ performed a substantive portion of the visit, incldng all aspects of the (History/Exam/Medical Decision Making). Disposition Summary: 11/20/23 00:23 Discharge Ordered Notes: Location: Home kb Condition: Stable kb Diagnosis - Diverticulitis of intestine, part unspecified, without perforation or abscess kb without bleeding Followup: kb - With: Emergency Department - When: As needed - Reason: Worsening of condition Followup: kb - With: Private Physician - When: 2 - 3 days - Reason: Recheck today's complaints, Continuance of care, Re-evaluation by your physician Discharge Instructions: - Discharge Summary Sheet kb - Diverticulitis, [id number] kb Forms: - Medication Reconciliation Form kb - Thank You Letter kb - Antibiotic Education kb - Prescription Opioid Use kb - Patient Portal Instructions kb - Leadership Thank You Letter kb Prescriptions: - Cephalexin 500 mg Oral Capsule - take 1 capsule ORAL route every 8 hours for 10 days; 30 capsule; Refills: 0, kb Product Selection Permitted - Flagyl 500 mg Oral Tablet - take 1 tablet ORAL route every 8 hours for 10 days; 30 tablet; Refills: 0, kb Product Selection Permitted - Diclofenac Sodium 75 mg Oral tablet, delayed release (enteric coated) - take 1 tablet ORAL route 2 times per day As needed; 30 tablet; Refills: 0, kb Product Selection Permitted Signatures: Dispatcher [employer] Catrina Calderon, Sudheer Curran MD MD sp4 Madison Camejo RN RN cm10 Ely Alves RN RN tm6 Corrections: (The following items were deleted from the chart) 00:23 00:23 Hydrocodone-Acetaminophen PO (7.5 mg-325 mg) 1 tabs PO once ordered. kb kb
[2023-11-20 00:53] VITALS: BP 122/87; TEMP 97.7; O2SAT 99
--- NOTE | 2023-11-20 12:37 | RAD REPORT ---
EXAM DESCRIPTION: Abdomen Pelvis W Contrast 11/20/2023 12:05 AM CDT CLINICAL HISTORY: 43 years, Female, ABD PAIN COMPARISON: None TECHNIQUE: Contrast-enhanced images of the abdomen and pelvis were performed utilizing 5 mm slice th ickness at 5 mm interval reconstruction from the lung bases to the ischial tuberosities after the adm inistration of IV contrast. In addition multiplanar reformats in the coronal and sagittal plane were obtained and reviewed. An individualized dose optimization technique, Automated Exposure Control, was utilized for the perfo rmed procedure. FINDINGS: Lung bases: The lung bases demonstrate to be clear. There are bilateral breast implants Liver: The liver demonstrates to be normal, no focal lesions identified. Gallbladder: The gallbladder demonstrate to be normal. Adrenal glands: The adrenal glands demonstrate to be normal. Pancreas: The pancreas demonstrate to be normal. Spleen: The spleen demonstrate to be within normal limits. Kidneys: The kidneys demonstrate normal uptake of contrast media. There is no evidence for nephroli thiasis and/or hydronephrosis. There are no significant cystic lesions. GI: Grossly the unopacified stomach, small bowel and large bowel demonstrate to be within normal limi ts. No evidence for bowel dilatation and/or free air. The appendix is normal. The left-sided colon/si gmoid colon demonstrated presence of diverticulosis with the presence of focal area of abnormal mucos al thickening and pericolonic haziness proximal aspect of the sigmoid colon corresponding to acute di verticulitis on axial image [id number] and coronal image [id number]. There is no evidence for perforation and/o r abscess formation. : The urinary bladder demonstrate to be partially distended. Genitalia: The uterus demonstrate to be within normal limits. There are normal adnexal structures. Abdominal aorta: The aorta demonstrate to be within normal limits. Retroperitoneum: There is no retroperitoneal lymphadenopathy. There is no evidence for ascites and/or abnormal fluid collections. Bones: The bony structures demonstrate to be within normal limits. Soft tissues: The rest of the soft tissue and bony structures are within normal limits. IMPRESSION: Acute sigmoid diverticulitis. No evidence for perforation and/or abscess formation. Electronically signed by: Kwesi Harvey MD 11/20/2023 12:08 AM CDT Due to temporary technical issues with the PACS/Fluency reporting system, reports are being signed by the in house radiologist without review as a courtesy to ensure prompt reporting. The interpreting r adiologist is fully responsible for the content of the report.
== END ==
LOC: ER 22:04
DX: K57.32 Diverticulitis of large intestine without perforation or abscess without bleeding (principal); Z88.0 Allergy status to penicillin
CPT/HCPCS: 85025; 36415; 81025; 81003; 83690; 80053; 74177; Q9967; J7030

== ENCOUNTER 2024-08-08 21:28 | Emergency (ER) | payer OTHER ==
--- OUTSIDE RECORDS SUMMARY | 2024-08-08 21:34 | XMS REPORT | Continuity of Care Document ---
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 24.91 kg/m2 [facility] Oxygen saturation in Arterial blood by Pulse oximetry 2023-11-13 19:43:00 100 /min [facility] Systolic blood pressure 2023-10-28 19:24:07 120 mm[Hg] [facility] Diastolic blood pressure 2023-10-28 19:24:07 84 mm[Hg] [facility] Heart rate 2023-10-28 19:24:07 98 /min [facility] Respiratory rate 2023-10-28 19:24:07 20 /min [facility] [place] Oxygen saturation in Arterial blood by Pulse oximetry 2023-10-28 19:24:07 100 /min [facility] Body temperature 2023-10-28 17:08:00 36.78 [place] [facility] [place] Body height 2023-10-28 17:08:00 160 cm [facility] Body weight 2023-10-28 17:08:00 60.782 kg [facility] BMI 2023-10-28 17:08:00 23.74 kg/m2 [facility] Systolic blood pressure 2023-09-06 22:10:00 122 mm[Hg] [facility] Diastolic blood pressure 2023-09-06 22:10:00 85 mm[Hg] [facility] Heart rate 2023-09-06 22:10:00 104 /min [facility] Body temperature 2023-09-06 22:10:00 36.78 [place] [facility] [place] Respiratory rate 2023-09-06 22:10:00 17 /min [facility] [place] Body height 2023-09-06 22:10:00 160 cm [facility] Body weight 2023-09-06 22:10:00 61.236 kg [facility] BMI 2023-09-06 22:10:00 23.91 kg/m2 [facility] Oxygen saturation in Arterial blood by Pulse oximetry 2023-09-06 22:10:00 100 /min [facility] Systolic blood pressure 2023-05-17 15:13:00 125 mm[Hg] [facility] Diastolic blood pressure 2023-05-17 15:13:00 81 mm[Hg] [facility] Heart rate 2023-05-17 15:13:00 102 /min [facility] Body temperature 2023-05-17 15:13:00 36.72 [place] [facility] [place] Respiratory rate 2023-05-17 15:13:00 16 /min [facility] [place] Body height 2023-05-17 15:13:00 157.5 cm [facility] Body weight 2023-05-17 15:13:00 58.559 kg [facility] BMI 2023-05-17 15:13:00 23.61 kg/m2 [facility] Systolic blood pressure 2023-01-18 16:51:00 121 mm[Hg] [facility] Diastolic blood pressure 2023-01-18 16:51:00 82 mm[Hg] [facility] Heart rate 2023-01-18 16:51:00 97 /min [facility] Respiratory rate 2023-01-18 16:51:00 16 /min [facility] [place] Oxygen saturation in Arterial blood by Pulse oximetry 2023-01-18 16:51:00 100 /min [facility] Body temperature 2023-01-18 14:31:00 36.67 [place] [facility] [place] Body height 2023-01-18 14:31:00 157.5 cm [facility] Body weight 2023-01-18 14:31:00 58.968 kg [facility] BMI 2023-01-18 14:31:00 23.78 kg/m2 [facility] Systolic blood pressure 2022-08-28 06:06:07 99 mm[Hg] [facility] Diastolic blood pressure 2022-08-28 06:06:07 70 mm[Hg] [facility] Heart rate 2022-08-28 06:06:07 95 /min [facility] Respiratory rate 2022-08-28 06:06:07 18 /min [facility] [place] Oxygen saturation in Arterial blood by Pulse oximetry 2022-08-28 06:06:07 100 /min [facility] Body temperature 2022-08-28 02:33:00 37 [place] [facility] [place] Body height 2022-08-28 02:33:00 160 cm [facility] Body weight 2022-08-28 02:33:00 70.308 kg [facility] BMI 2022-08-28 02:33:00 27.46 kg/m2 [facility] Systolic blood pressure 2022-08-24 02:32:00 123 mm[Hg] [facility] Diastolic blood pressure 2022-08-24 02:32:00 82 mm[Hg] [facility] Heart rate 2022-08-24 02:32:00 97 /min [facility] Body temperature 2022-08-24 02:32:00 37.22 [place] [facility] [place] Respiratory rate 2022-08-24 02:32:00 18 /min [facility] [place] Body height 2022-08-24 02:32:00 160 cm [facility] Body weight 2022-08-24 02:32:00 70.308 kg [facility] BMI 2022-08-24 02:32:00 27.46 kg/m2 [facility] Oxygen saturation in Arterial blood by Pulse oximetry 2022-08-24 02:32:00 100 /min [facility] Procedures Procedure Date / Time Performed Performing Clinician Source BI ULTRASOUND BREAST COMPLETE RIGHT 2023-12-11 19:15:40 [facility] BI DIAGNOSTIC TOMOSYNTHESIS BILATERAL 2023-12-11 18:45:00 [facility] POCT TEST 2023-11-19 20:42:00 Gary Welsh [facility] [place] URINALYSIS 2023-11-19 20:30:00 [facility]ENEFITS 2023-10-28 18:35:56 Docto r Unassigned, Ronceverte [facility] [place] URINALYSIS 2023-10-28 17:43:00 Amrita Boateng [facility] RAPID INFLUENZA A/B 2023-10-28 17:43:00 Amrita Boateng [facility] [place] COVID-19 (ID NOW RAPID TESTING) 2023-10-28 17:43:00 Amrita Boateng [facility] [place] XR ABDOMEN ACUTE SERIES 2023-10-28 17:37:00 Diane Boateng [facility] [place] POCT TEST 2023-10-28 17:27:00 Amrita Boateng [facility] [place] CONSENT/REFUSAL FOR DIAGNOSIS AND TREATMENT 2023-10-28 17:01:18 Doctor Unassigned, Ronceverte [facility] [place] ASSIGNMENT OF BENEFITS 2023-09-06 23:25:50 Docto r Unassigned, Ronceverte [facility] [place] RAPID STREP SCREEN FOR GROUP A 2023-09-06 22:41:00 Louise House [facility] [place] RAPID INFLUENZA A/B 2023-09-06 22:41:00 Tez House [facility] [place] COVID-19 (ID NOW RAPID TESTING) 2023-09-06 22:41:00 Louise House [facility] [place] CONSENT/REFUSAL FOR DIAGNOSIS AND TREATMENT 2023-09-06 22:05:33 Doctor Unassigned, Ronceverte [facility] [place] BCCS-RELATED DOCUMENTATION 2023-06-27 05:01:00 Doctor Unassigned, Ronceverte [facility] [place] BI ULTRASOUND BREAST COMPLETE RIGHT 2023-06-05 18:38:00 Obdulia Paulino [facility] [place] BI DIAGNOSTIC TOMOSYNTHESIS RIGHT 2023-06-05 18:18:16 Greer Mendez [facility] [place] GARDASIL 9 (HPV 9V) VACCINE 2023-05-17 15:28:56 Obdulia Paulino [facility] [place] EXTERNAL PROVIDER RECORDS 2023-05-17 05:01:00 Doctor Unassigned, [place]ceverte [facility] [place] ASSIGNMENT OF BENEFITS 2023-05-01 19:06:56 Docto r Unassigned, Ronceverte [facility] [place] CT CERVICAL SPINE WO CONTRAST 2023-01-18 15:38:46 Chandrakant Hernandez [facility] [place] CT HEAD WO CONTRAST 2023-01-18 15:38:46 Chandrakant Hernandez [facility] [place] AUTHORIZATION FOR RELEASE OF PHI 2022-09-30 06:01:00 Doctor Unassigned, Ronceverte [facility] [place] LACTIC ACID WHOLE BLOOD 2022-08-28 04:57:00 Renee Hernandez [facility] [place] CT ABDOMEN PELVIS W CONTRAST 2022-08-28 04:40:00 Chandrakant Hernandez [facility] [place] CBC WITH DIFF 2022-08-28 04:15:[address] [facility] LIPASE 2022-08-28 03:31:00 Chandrakant Hernandez [facility] COMP. METABOLIC PANEL (68501) 2022-08-28 03:31:00 Chandrakant Hernandez [facility] [place] URINALYSIS 2022-08-28 03:31:00 Chandrakant Hernandez [facility] CONSENT/REFUSAL FOR DIAGNOSIS AND TREATMENT 2022-08-28 02:24:47 Doctor Unassigned, Ronceverte [facility] [place] POCT TEST 2022-08-24 03:42:00 Cesar Lepe [facility] [place] LIPASE 2022-08-24 03:37:00 Earnest Lepe [facility] COMP. METABOLIC PANEL (64933) 2022-08-24 03:37:00 Earnest Lepe [facility] [place] CBC WITH DIFF 2022-08-24 03:37:00 [facility] 2022-08-24 03:37:00 Earnest Lepe [facility] RAPID INFLUENZA A/B 2022-08-24 03:37:00 Cesar Lepe [facility] [place] COVID-19 (ID NOW RAPID TESTING) 2022-08-24 03:37:00 Earnest Lepe [facility] [place] NOTICE OF PRIVACY PRACTICES 2022-08-24 02:25:40 Doctor Unassigned, Ronceverte [facility] [place] CONSENT/REFUSAL FOR DIAGNOSIS AND TREATMENT 2022-08-24 02:25:26 Doctor Unassigned, Ronceverte [facility] [place] BI ULTRASOUND BREAST COMPLETE LEFT 2022-04-19 16:54:50 Tran Gracia [facility] [place] BI DIAGNOSTIC TOMOSYNTHESIS BILATERAL 2022-04-19 15:45:17 Tran Gracia [facility] [place] EXTERNAL PROVIDER RECORDS 2022-03-11 05:01:00 Doctor Unassigned, Ronceverte [facility] [place] Encounters Start Date/Time End Date/Time Encounter Type Admission Type Attending [facility] Care Facility Care Department Encounter ID Source 2024-05-07 09:54:08 Outpatient JEI FLEMING [facility] [id number] [facility] 2024-01-03 12:16:37 Outpatient JIE DE SANTIAGO JIE [facility] [id number] [facility] 2021-06-25 12:18:[address] [facility] [id number] [facility] 2021-06-24 22:33:[address] [facility] [id number] [facility] 2021-06-24 18:47:[address] [facility] [id number] [facility] 2021-06-24 18:26:[address] [facility] [id number] [facility] 2024-07-16 16:15:00 2024-07-16 16:15:[address]OOK [facility] [id number] [facility] 2024-07-15 16:30:00 2024-07-15 16:30:00 Outpatient JIE DE SANTIAGO PAM[facility] [id number] [facility] 2024-06-23 15:00:00 2024-06-23 15:00:[address]ON SCALES [facility] [id number] [facility] 2024-06-09 14:50:51 2024-06-09 23:59:00 Hospital Encounter Obdulia Paulino [facility] 1.2.840.114 350.1.13.10 4.2.7.2.686 [id number] [facility] 2024-06-09 14:49:38 2024-06-09 14:49:38 Outpatient R OBDULIA PAULINO [facility] [id number] [facility] 2024-06-09 14:49:38 2024-06-09 14:49:38 Hospital Encounter Obdulia Paulino [facility] 1.2840.114 350.1.13.10 4.2.7.2.686 [id number] [facility] 2024-05-20 00:00:00 2024-06-03 11:27:33 Telephone Jie Fleming [facility] 1..840.114 350.1.13.10 4.2.7.2.686 [id number] [facility] 2024-05-18 15:20:00 2024-05-18 15:20:00 Outpatient R RONIT VALDIVIA [facility] [id number] [facility] 2024-05-18 14:30:00 2024-05-18 14:30:00 Outpatient R SHARON WEINBERG [facility] [id number] [facility] 2024-05-13 00:00:00 2024-05-13 11:06:38 Telephone Jie Fleming [facility] ..840.114 350.1.13.10 4.2.7.2.686 [id number] [facility] 2024-05-06 11:30:00 2024-05-06 12:15:38 Outpatient R JIE FLEMING P[facility] [id number] [facility] 2024-05-06 11:30:00 2024-05-06 12:15:38 Office Visit Jie Fleming [facility] 1.2.840.114 350.1.13.10 4.2.7.2.686 [id number] [facility] 2024-04-07 00:00:00 2024-04-07 15:32:47 Patient Secure Msg Doctor Unassigned, Ronceverte Doctor Unassigned, Ronceverte [facility] 1.840.114 350.1.13.10 4.2.7.2.686 [id number] [facility] 2024-02-05 00:00:00 2024-02-05 12:24:41 Telephone Elvira Booker [facility] 1.840.114 350.1.13.10 4.2.7.2.686 [id number] [facility] 2024-02-04 00:00:00 2024-02-04 08:23:34 Case Management Obdulia Paulino [facility] 1.840.114 350.1.13.10 4.2.7.2.686 [id number] [facility] 2024-01-29 14:30:00 2024-01-29 14:30:00 Outpatient JIE DE SANTIAGO [facility] [id number] [facility] 2024-01-27 00:00:00 2024-01-27 13:55:22 Telephone Elvira Booker [facility] 1.840.114 350.1.13.10 4.2.7.2.686 [id number] [facility] 2024-01-13 00:00:00 2024-01-16 12:05:02 Telephone Jie Fleming [facility] 1.2.840.114 350.1.13.10 4.2.7.2.686 [id number] [facility] 2024-01-15 00:00:00 2024-01-15 17:32:30 Patient Secure Msg Doctor Unassigned, Ronceverte [facility] 1.2.840.114 350.1.13.10 4.2.7.2.686 [id number] [facility] 2024-01-15 00:00:00 2024-01-15 16:21:29 Telephone Jie Fleming [facility] 1.2.840.114 350.1.13.10 4.2.7.2.686 [id number] [facility] 2024-01-09 00:00:00 2024-01-12 08:28:19 Patient Secure Msg Doctor Unassigned, Ronceverte [facility] 1.2.840.114 350.1.13.10 4.2.7.2.686 [id number] [facility] 2024-01-01 00:00:00 2024-01-01 09:50:38 Telephone Miko Young [facility] [place] 1.2.840.114 350.1.13.10 4.2.7.2.686 [id number] [facility] 2023-12-25 00:00:00 2023-12-25 00:00:00 Telephone Greer Mendez [facility] 1.2.840.114 350.1.13.10 4.2.7.2.686 [id number] [facility] 2023-12-12 00:00:00 2023-12-12 00:00:00 Telephone Jie Fleming [facility] 1.2.840.114 350.1.13.10 4.2.7.2.686 [id number] [facility] 2023-12-11 12:07:42 2023-12-11 23:59:00 Hospital Encounter [facility] 1..840.114 350.1.13.10 4.2.7.2.686 [id number] [facility] 2023-12-11 15:30:00 2023-12-11 17:09:52 [facility] 1..840.114 350.1.13.10 4.2.7.2.686 [id number] [facility] 2023-12-11 12:05:37 2023-12-11 12:06:00 Outpatient Darby PAULINO [facility] [id number] [facility] 2023-12-11 12:05:37 2023-12-11 12:06:00 Hospital Encounter [facility] [facility] 1..840.114 350.1.13.10 4.2.7.2.686 [id number] [facility] 2023-12-10 16:20:00 2023-12-10 16:26:[address] W[address] [facility] [id number] [facility] 2023-12-10 16:20:00 2023-12-10 16:26:57 Office Visit Ronit Valdivia [facility] 1..840.114 350.1.13.10 4.2.7.2.686 [id number] 044 [id number] [facility] 2023-12-09 13:00:00 2023-12-09 13:00:00 Outpatient ARMAAN CUELLO CRAIG [facility] [id number] [facility] 2023-12-04 13:00:00 2023-12-04 14:00:00 Office Visit Miko Young Erin [facility] 1..840.114 350.1.13.10 4.2.7.2.686 [id number] [facility] 2023-12-04 13:00:00 2023-12-04 13:00:00 Outpatient R DEVINSLIME ALVAREZ [facility] [id number] [facility] 2023-11-26 16:20:00 2023-11-26 16:40:00 Office Visit Ronit Valdivia [facility] 1..840.114 350.1.13.10 4.2.7.2.686 [id number] [facility] 2023-11-26 16:20:00 2023-11-26 16:20:00 Outpatient R RONIT VALDIVIA [facility] [id number] [facility] 2023-11-25 00:00:00 2023-11-25 00:00:00 Telephone Greer Mendez [facility] 1..840.114 350.1.13.10 4.2.7.2.686 [id number] 107 [id number] [facility] 2023-11-19 15:20:00 2023-11-19 16:49:00 Emergency X BRENDA WELSH [facility] [id number] [facility] 2023-11-19 15:20:00 2023-11-19 16:49:00 Emergency Brenda Welsh [facility] 1..840.114 350.1.13.10 4.2.7.2.686 [id number] 084 [id number] [facility] 2023-11-13 15:00:00 2023-11-13 16:14:29 Outpatient R RONIT VALDIVIA [facility] [id number] [facility] 2023-11-13 15:00:00 2023-11-13 16:14:29 Office Visit Ronit Valdivia [facility] 1.2840.114 350.1.13.10 4.2.7.2.686 [id number] [facility] 2023-10-28 11:09:00 2023-10-28 13:25:00 Emergency X TASNEEM AMRITA [facility] ERT [id number] [facility] 2023-10-28 11:09:00 2023-10-28 13:25:00 Emergency Amrita Boateng [facility] 1.2840.114 350.1.13.10 4.2.7.2.686 [id number] [facility] 2023-10-27 14:00:00 2023-10-27 14:00:00 Outpatient MASON ALLRED [id number] Chari Mares 2023-10-04 00:00:00 2023-10-04 00:00:00 Patient Secure Msg Doctor Unassigned, Ronceverte [facility] 1.840.114 350.1.13.10 4.2.7.2.686 [id number] [facility] 2023-09-06 16:18:00 2023-09-06 18:57:00 Emergency X LOUISE HOUSE [facility] ERT [id number] [facility] 2023-09-06 16:18:00 2023-09-06 18:57:00 Emergency Harsh Louise [facility] 1.2.840.114 350.1.13.10 4.2.7.2.686 [id number] 084 [id number] [facility] 2023-08-29 13:00:00 2023-08-29 13:00:00 Outpatient GREER PALMER [facility] [id number] [facility] 2023-08-28 00:00:00 2023-08-28 00:00:00 Patient Secure Msg Doctor Unassigned, Ronceverte [facility] 1.0.114 350.1.13.10 4.2.7.2.686 [id number] [id number] [facility] 2023-08-15 13:00:00 2023-08-15 13:00:00 Outpatient R GREER MENDEZ [facility] [id number] [facility] 2023-07-28 00:00:00 2023-07-28 00:00:00 Patient Secure Msg Doctor Unassigned, Ronceverte [facility] 1.0.114 350.1.13.10 4.2.7.2.686 [id number] [facility] 2023-07-14 15:00:00 2023-07-14 15:00:[address] [facility] [id number] [facility] 2023-06-27 00:00:00 2023-06-27 00:00:00 Orders Only Doctor Unassigned, Ronceverte [facility] 1..114 350.1.13.10 4.2.7.2.686 [id number] [id number] [facility] 2023-06-21 00:00:00 2023-06-21 00:00:00 Outpatient GC_GCBZW_Ka diyala_S PRIV PRIV [id number] [facility] 2023-06-10 00:00:00 2023-06-10 00:00:00 Case Management Obdulia Paulino [facility] ..114 350.1.13.10 4.2.7.2.686 [id number] [facility] 2023-06-06 00:00:00 2023-06-06 00:00:00 Telephone Greer Mendez [facility] 1.0.114 350.1.13.10 4.2.7.2.686 [id number] 107 [id number] [facility] 2023-06-05 12:06:38 2023-06-05 23:59:00 Hospital Encounter Obdulia Paulino [facility] 1.2840.114 350.1.13.10 4.2.7.2.686 [id number] 800 [id number] [facility] 2023-06-05 12:06:31 2023-06-05 23:59:00 Outpatient R GREER MENDEZ [facility] [id number] [facility] 2023-06-05 12:06:31 2023-06-05 23:59:00 Hospital Encounter CalebyasmineGreer [facility] 1.2840.114 350.1.13.10 4.2.7.2.686 [id number] 800 [id number] [facility] 2023-06-02 00:00:00 2023-06-02 00:00:00 Patient Secure Msg Greer Mendez [facility] 1.20.114 350.1.13.10 4.2.7.2.686 [id number] 107 [id number] [facility] 2023-06-02 00:00:00 2023-06-02 00:00:00 Patient Secure Msg Greer Mendez [facility] 1.2840.114 350.1.13.10 4.2.7.2.686 [id number] 107 [id number] [facility] 2023-05-29 00:00:00 2023-05-29 00:00:00 Patient Secure Msg Doctor Unassigned, Ronceverte [facility] 1.2840.114 350.1.13.10 4.2.7.2.686 [id number] 044 [id number] [facility] 2023-05-19 00:00:00 2023-05-19 00:00:00 Patient Secure Msg [facility] 1.114 350.1.13.10 4.2.7.2.686 [id number] 113 [id number] [facility] 2023-05-18 00:00:00 2023-05-18 00:00:00 Patient Secure Msg Doctor Unassigned, Ronceverte [facility] 1..114 350.1.13.10 4.2.7.2.686 [id number] 044 [id number] [facility] 2023-05-17 10:15:00 2023-05-17 11:09:49 Outpatient Darby PAULINO OBDULIA [facility] [id number] [facility] 2023-05-17 10:15:00 2023-05-17 11:09:49 Office Visit Provider, Chetna Hsu Elana [facility] ..114 350.1.13.10 4.2.7.2.686 [id number] 107 [id number] [facility] 2023-05-17 00:00:00 2023-05-17 00:00:00 Orders Only Doctor Unassigned, Ronceverte [facility] ..114 350.1.13.10 4.2.7.2.686 [id number] [id number] [facility] 2023-05-17 00:00:00 2023-05-17 00:00:00 Patient Secure Msg Doctor Unassigned, Ronceverte [facility] ..114 350.1.13.10 4.2.7.2.686 [id number] 044 [id number] [facility] 2023-05-14 13:30:00 2023-05-14 13:30:[address] [facility] [id number] [facility] 2023-05-12 00:00:00 2023-05-12 00:00:00 Case Management [facility] 1.2.840.114 350.1.13.10 4.2.7.2.686 [id number] [facility] 2023-05-12 00:00:00 2023-05-12 00:00:00 Telephone Greer Mendez [facility] 1.840.114 350.1.13.10 4.2.7.2.686 [id number] 107 [id number] [facility] 2023-05-09 00:00:00 2023-05-09 00:00:00 Patient Secure Msg Doctor Unassigned, Ronceverte [facility] 1.0.114 350.1.13.10 4.2.7.2.686 [id number] [id number] [facility] 2023-05-08 00:00:00 2023-05-08 00:00:00 Telephone Tran Gracia [facility] 1.0.114 350.1.13.10 4.2.7.2.686 [id number] 107 [id number] [facility] 2023-05-01 14:10:36 2023-05-01 23:59:[address] [facility] [id number] [facility] 2023-05-01 14:10:36 2023-05-01 23:59:00 Hospital Encounter Aby Phelps [facility] 1.840.114 350.1.13.10 4.2.7.2.686 [id number] [facility] 2023-05-01 00:00:00 2023-05-01 00:00:00 Orders Only Doctor Unassigned, Ronceverte [facility] 1.840.114 350.1.13.10 4.2.7.2.686 [id number] [facility] 2023-04-30 00:00:00 2023-04-30 00:00:00 Patient Secure Msg Doctor Unassigned, Ronceverte [facility] 1.2.840.114 350.1.13.10 4.2.7.2.686 [id number] [id number] [facility] 2023-04-03 00:00:00 2023-04-03 00:00:00 Patient Secure Msg Doctor Unassigned, Ronceverte [facility] 1.2.840.114 350.1.13.10 4.2.7.2.686 [id number] [id number] [facility] 2023-01-25 00:00:00 2023-01-25 00:00:00 Patient Secure Msg Doctor Unassigned, Ronceverte [facility] 1.2.840.114 350.1.13.10 4.2.7.2.686 [id number] 044 [id number] [facility] 2023-01-23 00:00:00 2023-01-23 00:00:00 Patient Secure Msg Doctor Unassigned, Ronceverte [facility] 1.2.840.114 350.1.13.10 4.2.7.2.686 [id number] [id number] [facility] 2023-01-23 00:00:00 2023-01-23 00:00:00 Patient Secure Msg Doctor Unassigned, Ronceverte [facility] 1.2.840.114 350.1.13.10 4.2.7.2.686 [id number] [id number] [facility] 2023-01-18 09:37:00 2023-01-18 11:55:00 Emergency X CHANDRAKANT HERNANDEZ [facility] E[facility] [id number] [facility] 2023-01-18 09:37:00 2023-01-18 11:55:00 Emergency Chandrakant Hernandez [facility] 1.2.840.114 350.1.13.10 4.2.7.2.686 [id number] [facility] 2022-09-30 00:00:00 2022-09-30 00:00:00 Orders Only Doctor Unassigned, Ronceverte [facility] 1..840.114 350.1.13.10 4.2.7.2.686 [id number] [id number] [facility] 2022-08-27 20:38:00 2022-08-28 01:18:00 Emergency X CHANDRAKANT HERNANDEZ [facility] ERT [id number] [facility] 2022-08-27 20:38:00 2022-08-28 01:18:00 Emergency VasutChandrakant [facility] 1..840.114 350.1.13.10 4.2.7.2.686 [id number] [facility] 2022-08-23 20:34:00 2022-08-23 22:46:00 Emergency X EARNEST LEPE [facility] ERT [id number] [facility] 2022-08-23 20:34:00 2022-08-23 22:46:00 Emergency Behzadi, Earnest A [facility] 1..840.114 350.1.13.10 4.2.7.2.686 [id number] [id number] [facility] 2022-04-19 09:48:10 2022-04-19 23:59:00 Outpatient R TRAN GRACIA EMILY [facility] [id number] [facility] 2022-04-19 09:48:10 2022-04-19 23:59:00 Hospital Encounter Tran Gracia [facility] ..840.114 350.1.13.10 4.2.7.2.686 [id number] 800 [id number] [facility] 2022-04-19 09:47:42 2022-04-19 09:47:42 Hospital Encounter Tran Gracia [facility] 1.114 350.1.13.10 4.2.7.2.686 [id number] 800 [id number] [facility] 2022-04-11 10:00:00 2022-04-11 10:00:00 Outpatient CARY JIMÉNEZ [facility] [id number] [facility] 2022-04-08 13:30:00 2022-04-08 13:30:[address] [facility] [id number] [facility] 2022-04-08 13:30:00 2022-04-08 13:30:[address] [facility] [id number] [facility] 2022-04-08 13:30:00 2022-04-08 13:30:00 Outpatient CARY JIMÉNEZ [facility] [id number] [facility] 2022-04-01 00:00:00 2022-04-01 00:00:00 Outpatient TRAN JAMIL EMILY [facility] [id number] [facility] 2022-04-01 00:00:00 2022-04-01 00:00:00 Outpatient TRAN JAMIL EMILY [facility] [id number] [facility] 2022-03-15 00:00:00 2022-03-15 00:00:00 Cary Butt [facility] ..114 350.1.13.10 4.2.7.2.686 [id number] 107 [id number] [facility] 2022-03-13 10:00:00 2022-03-13 10:00:00 Outpatient CARY JIMÉNEZ [facility] [id number] [facility] 2022-03-13 00:00:00 2022-03-13 00:00:00 Orders Only Doctor Unassigned, Ronceverte [facility] ..114 350.1.13.10 4.2.7.2.686 [id number] [id number] [facility] 2022-03-13 00:00:00 2022-03-13 00:00:00 Case Management CabelloCary [facility] 1.2.840.114 350.1.13.10 4.2.7.2.686 [id number] 107 [id number] [facility] 2022-03-11 00:00:00 2022-03-11 00:00:00 Orders Only Doctor Unassigned, Ronceverte [facility] 1.840.114 350.1.13.10 4.2.7.2.686 [id number] [facility] 2022-03-07 00:00:00 2022-03-07 00:00:00 Patient Secure Msg Doctor Unassigned, Ronceverte [facility] 1.840.114 350.1.13.10 4.2.7.2.686 [id number] 107 [id number] [facility] 2022-03-05 13:45:00 2022-03-05 15:29:53 Outpatient TRAN JAMIL EMILY [facility] [id number] [facility] 2022-03-05 13:45:00 2022-03-05 15:29:53 Office Visit Provider, LatishaRmchTran Rodriguez [facility] REC[facility]ER [facility] 1..840.114 350.1.13.10 4.2.7.2.686 [id number] 107 [id number] [facility] 2022-03-05 13:45:00 2022-03-05 15:29:53 Outpatient TRAN JAMIL EMILY [facility] [id number] [facility] 2022-03-05 13:45:00 2022-03-05 13:45:00 Outpatient R TRAN GRACIA EMILY [facility] [id number] [facility] 2022-03-05 00:00:00 2022-03-05 00:00:00 Orders Only Doctor Unassigned, Ronceverte [facility] 1.2840.114 350.1.13.10 4.2.7.2.686 [id number] [facility] 2021-12-21 20:20:00 2021-12-21 20:20:[address] [facility] [id number] [facility] 2021-09-27 11:15:00 2021-09-27 15:02:00 Emergency X ANGÉLICA PELAYO [facility] ERT [id number] [facility] 2021-09-27 11:15:00 2021-09-27 15:02:00 Emergency Angélica Pelayo [facility] 1.840.114 350.1.13.10 4.2.7.2.686 [id number] [facility] 2021-09-27 00:00:00 2021-09-27 00:00:00 Orders Only Doctor Unassigned, Ronceverte [facility] 1.2840.114 350.1.13.10 4.2.7.2.686 [id number] [facility] 2021-05-03 13:05:08 2021-05-03 14:38:12 Office Visit Greer Mendez [facility] 1.2.840.114 350.1.13.10 4.2.7.2.686 [id number] 107 [id number] [facility] 2021-05-03 13:15:00 2021-05-03 13:15:00 Outpatient R GREER MENDEZ [facility] [id number] [facility] 2021-04-03 00:00:00 2021-04-03 00:00:00 Telephone Kitty Clark [facility] 1.2.840.114 350.1.13.10 4.2.7.2.686 [id number] [id number] [facility] 2021-03-25 23:08:00 2021-03-25 23:46:00 Emergency Angélica Pelayo [facility] 1.2.840.114 350.1.13.10 4.2.7.2.686 [id number] [facility] 2021-03-25 23:08:00 2021-03-25 23:46:00 Emergency X ANGÉLICA PELAYO [facility] ERT [id number] [facility] 2021-03-08 00:00:00 2021-03-08 00:00:00 Telephone Greer Mendez [facility] 1.2.840.114 350.1.13.10 4.2.7.2.686 [id number] 107 [id number] [facility] 2021-03-02 00:00:00 2021-03-02 00:00:00 Telephone Tran Felix [facility] 1.2.840.114 350.1.13.10 4.2.7.2.686 [id number] 107 [id number] [facility] 2021-02-07 13:15:00 2021-02-07 13:15:00 Outpatient R GREER MENDEZ [facility] [id number] [facility] 2021-01-24 00:16:00 2021-01-24 02:29:00 Emergency Lois Centeno [facility] 1.2.840.114 350.1.13.10 4.2.7.2.686 [id number] [facility] 2021-01-24 00:16:00 2021-01-24 02:29:00 Emergency Lois Centeno [facility] 1.2.840.114 350.1.13.10 4.2.7.2.686 [id number] 2021-01-24 00:00:00 2021-01-24 00:00:00 Orders Only Doctor Unassigned, Ronceverte [facility] 1.2.840.114 350.1.13.10 4.2.7.2.686 [id number] [id number] [facility] 2021-01-24 00:00:00 2021-01-24 00:00:00 Orders Only Doctor Unassigned, Ronceverte [facility] 1.2.840.114 350.1.13.10 4.2.7.2.686 [id number] [id number] 2021-01-23 00:00:00 2021-01-23 00:00:00 Orders Only Doctor Unassigned, Ronceverte [facility] 1.2.840.114 350.1.13.10 4.2.7.2.686 [id number] [id number] [facility] 2021-01-23 00:00:00 2021-01-23 00:00:00 Orders Only Doctor Unassigned, Ronceverte [facility] 1.2.840.114 350.1.13.10 4.2.7.2.686 [id number] [id number] 2021-01-03 21:27:00 2021-01-03 23:45:00 Emergency Dedra Felix [facility] 1.2.840.114 350.1.13.10 4.2.7.2.686 [id number] 084 [id number] [facility] 2021-01-03 21:27:00 2021-01-03 23:45:00 Emergency Dedra Felix [facility] 1.2.840.114 350.1.13.10 4.2.7.2.686 [id number] 084 [id number] 2021-01-02 14:10:00 2021-01-02 19:43:00 Emergency Lois Centeno [facility] 1.2.840.114 350.1.13.10 4.2.7.2.686 [id number] 084 [id number] [facility] 2021-01-02 14:10:00 2021-01-02 19:43:00 Emergency Lois Centeno [facility] 1.2.840.114 350.1.13.10 4.2.7.2.686 [id number] 2021-01-02 00:00:00 2021-01-02 00:00:00 Orders Only Doctor Unassigned, Ronceverte [facility] 1.2.840.114 350.1.13.10 4.2.7.2.686 [id number] [id number] [facility] 2021-01-02 00:00:00 2021-01-02 00:00:00 Orders Only Doctor Unassigned, Ronceverte [facility] 1.2.840.114 350.1.13.10 4.2.7.2.686 [id number] [id number] 2020-11-20 00:00:00 2020-11-20 00:00:00 Patient Secure Msg Doctor Unassigned, Ronceverte [facility] REC[facility] 1.2.840.114 350.1.13.10 4.2.7.2.686 [id number] 107 [id number] [facility] 2020-11-18 00:00:00 2020-11-18 00:00:00 Patient Secure Msg Doctor Unassigned, Ronceverte [facility] 1.2.840.114 350.1.13.10 4.2.7.2.686 [id number] [facility] 2020-11-17 14:30:00 2020-11-17 14:30:[address] GREER PALMER [facility] [id number] [facility] 2020-11-13 00:00:00 2020-11-13 00:00:00 Patient Secure Msg Doctor Unassigned, Ronceverte [facility] WASTE RECYCLER [facility] CHILD [facility] 1.2840.114 350.1.13.10 4.2.7.2.686 [id number] [facility] 2020-11-07 14:03:28 2020-11-07 14:54:11 Office Visit Greer Mendez [facility]E RECY[facility]ER [facility] 1.2.840.114 350.1.13.10 4.2.7.2.686 [id number] 107 [id number] 2020-11-07 14:03:28 2020-11-07 14:54:11 Office Visit Greer Mendez [facility] REC[facility] 1.2840.114 350.1.13.10 4.2.7.2.686 [id number] 107 [id number] [facility] 2020-11-07 14:00:00 2020-11-07 14:00:00 Outpatient R GREER MENDEZ [facility] [id number] [facility] 2020-11-07 14:00:00 2020-11-07 14:00:00 Outpatient R GREER MENDEZ [facility] [id number] [facility] 2020-11-03 00:00:00 2020-11-03 00:00:00 Patient Secure Msg Doctor Unassigned, [place] [facility] 1.2.840.114 350.1.13.10 4.2.7.2.686 [id number] [facility] 2020-11-02 10:00:00 2020-11-02 10:00:[address] [facility] [id number] [facility] 2020-11-02 10:00:00 2020-11-02 10:00:00 Outpatient R CARY CABELLO [facility] [id number] [facility] 2020-11-02 00:00:00 2020-11-02 00:00:00 Patient Secure Msg Doctor Unassigned, [place] [facility] .114 350.1.13.10 4.2.7.2.686 [id number] [facility] 2020-10-30 00:00:00 2020-10-30 00:00:00 Patient Secure Msg Doctor Unassigned, [place] [facility] OFFICE BUILDING ONE .114 350.1.13.10 4.2.7.2.686 [id number] [facility] 2020-10-27 00:00:00 2020-10-27 00:00:00 Telephone Tran Felix [facility] .114 350.1.13.10 4.2.7.2.686 [id number] [facility] 2020-10-26 15:30:00 2020-10-26 15:30:00 Outpatient R TRAN FELIX [facility] [id number] [facility] 2020-10-26 15:30:00 2020-10-26 14:57:36 Outpatient R TRAN FELIX [facility] [id number] [facility] 2020-10-26 14:29:31 2020-10-26 14:57:36 Office Visit Tran Felix [facility] .114 350.1.13.10 4.2.7.2.686 [id number] [facility] 2020-10-26 00:00:00 2020-10-26 00:00:00 Patient Secure Msg Doctor Unassigned, [place] [facility] OFFICE BUILDING ONE .114 350.1.13.10 4.2.7.2.686 [id number] [facility] 2020-10-26 00:00:00 2020-10-26 00:00:00 Orders Only Doctor Unassigned, [place] [facility] 1.0.114 350.1.13.10 4.2.7.2.686 [id number] [facility] 2020-10-25 06:30:53 2020-10-25 23:59:00 Hospital Encounter Greer Mendez [facility] 1..114 350.1.13.10 4.2.7.2.686 [id number] [facility] 2020-10-25 00:00:00 2020-10-25 23:59:00 Outpatient R GREER MENDEZ [facility] [id number] [facility] 2020-10-25 00:00:00 2020-10-25 23:59:00 Outpatient R GREER MENDEZ [facility] [id number] [facility] 2020-10-25 00:00:00 2020-10-25 00:00:00 Outpatient R GREER MENDEZ [facility] [id number] [facility] 2020-10-20 14:30:00 2020-10-20 14:30:00 Outpatient R GREER MENDEZ [facility] [id number] [facility] 2020-10-20 08:18:28 2020-10-20 09:27:15 Office Visit Greer Mendez [facility] [facility] 1.84.114 350.1.13.10 4.2.7.2.686 [id number] [facility] 2020-10-20 00:00:00 2020-10-20 00:00:00 Orders Only Doctor Unassigned, [place] 1.0.114 350.1.13.10 4.2.7.2.686 [id number] [facility] 2020-10-16 00:00:00 2020-10-16 00:00:00 Telephone Pcp, Patient Does Not Have A [facility] [id number] 350.1.13.10 4.2.7.2.686 [id number] [facility] 2019-11-16 00:00:00 2019-11-16 00:00:00 [facility] [id number] 350.1.13.10 4.2.7.2.686 [id number] [facility] 2019-11-16 00:00:00 2019-11-16 00:00:00 Telephone Pob1, Acute [facility] [id number] 350.1.13.10 4.2.7.2.686 [id number] [facility] 2019-11-11 09:53:53 2019-11-11 11:56:02 Office Visit Pob1, Acute Care [facility] Any Henriquez [facility] Office Building One [id number] 350.1.13.10 4.2.7.2.686 [id number] [facility] 2019-11-11 09:20:00 2019-11-11 09:20:[address] [facility] [id number] [facility] 2019-10-18 14:00:00 2019-10-18 14:00:00 Outpatient R LAURA MCLEAN [facility] [id number] [facility] Results Test Description Test Time Test Comments Results Resul t Comments Source BI ULTRASOUND BREAST COMPLETE RIGHT 2023-11-24 8 22:18:07 Examination:BI DIAGNOSTIC TOMOSYNTHESIS BILATERALBI ULTRASOUND BREAST COMPLETE RIGHT History:Patient is 43 year old and is seen for: ?Short interval follow up, per radiology recommendaitons. ?Prior exam findings: There is a subcentimeter asymmetry in the inferior right breast, middle depth, 4 cm from the nipple. Computer-aided detection (CAD) utilized. Comparisons: 06/05/2023 BI DIAGNOSTIC TOMOSYNTHESIS RIGHT, 05/01/2023 BI SELF-REQUESTED ?SCREENING TOMOSYNTHESIS BILATERAL, 04/19/2022 BI DIAGNOSTIC TOMOSYNTHESIS BILATERAL, and 10/20/2017 SCREENING DIGITAL BREAST NILSA Findings:The breasts are heterogeneously dense, which may obscure small masses. LeftBI DIAGNOSTIC TOMOSYNTHESIS BILATERALThere is no evidence of suspicious masses, calcifications, or other abnormal findings in the left breast. RightBI DIAGNOSTIC TOMOSYNTHESIS BILATERAL No significant interval change in previously described subcentimeter asymmetry within the right breast inferior aspect, anterior depth, approximately 3-4 cm from the nipple, likely correlating with ultrasound finding below.Additionally, scattered subcentimeter oval circumscribed masses are noted within the breast, correlating with ultrasound findings below. BI ULTRASOUND BREAST COMPLETE RIGHTScattered cysts/fibrocystic changes noted within the right breast, correlating with mammographic findings above.No abnormal lymph nodes identified within the axilla. The retropectoral saline implants are noted. ?Silicone implant integrity is not fully evaluated on mammography alone. If there is a concern for an underlying silicone implant / bibiana-implant abnormality, breast MRI is the most sensitive exam for the evaluation of silicone implants Impression:No significant change in previously described right breast asymmetry as detailed above. ?A right diagnostic mammogram with possible ultrasound (if needed) in 6 months is recommended to demonstrate continued (at least 1 year) stability. ?These findings and recommendations were discussed with the patient. Recommendation:Shor t interval follow-up mammogram 6 months - RightShort interval follow-up ultrasound 6 months - Right BI-RADS Category: Right 3 - Probably Benign [facility] BI DIAGNOSTIC TOMOSYNTHESIS BILATERAL 2023-11- 8 22:18:07 Examination:BI DIAGNOSTIC TOMOSYNTHESIS BILATERALBI ULTRASOUND BREAST COMPLETE RIGHT History:Patient is 43 year old and is seen for: ?Short interval follow up, per radiology recommendaitons. ?Prior exam findings: There is a subcentimeter asymmetry in the inferior right breast, middle depth, 4 cm from the nipple. Computer-aided detection (CAD) utilized. Comparisons: 06/05/2023 BI DIAGNOSTIC TOMOSYNTHESIS RIGHT, 05/01/2023 BI SELF-REQUESTED ?SCREENING TOMOSYNTHESIS BILATERAL, 04/19/2022 BI DIAGNOSTIC TOMOSYNTHESIS BILATERAL, and 10/20/2017 SCREENING DIGITAL BREAST NILSA Findings:The breasts are heterogeneously dense, which may obscure small masses. LeftBI DIAGNOSTIC TOMOSYNTHESIS BILATERALThere is no evidence of suspicious masses, calcifications, or other abnormal findings in the left breast. RightBI DIAGNOSTIC TOMOSYNTHESIS BILATERAL No significant interval change in previously described subcentimeter asymmetry within the right breast inferior aspect, anterior depth, approximately 3-4 cm from the nipple, likely correlating with ultrasound finding below.Additionally, scattered subcentimeter oval circumscribed masses are noted within the breast, correlating with ultrasound findings below. BI ULTRASOUND BREAST COMPLETE RIGHTScattered cysts/fibrocystic changes noted within the right breast, correlating with mammographic findings above.No abnormal lymph nodes identified within the axilla. The retropectoral saline implants are noted. ?Silicone implant integrity is not fully evaluated on mammography alone. If there is a concern for an underlying silicone implant / bibiana-implant abnormality, breast MRI is the most sensitive exam for the evaluation of silicone implants Impression:No significant change in previously described right breast asymmetry as detailed above. ?A right diagnostic mammogram with possible ultrasound (if needed) in 6 months is recommended to demonstrate continued (at least 1 year) stability. ?These findings and recommendations were discussed with the patient. Recommendation:Shor t interval follow-up mammogram 6 months - RightShort interval follow-up ultrasound 6 months - Right BI-RADS Category: Right 3 [facility] [id number] 17:56:51 EXAM: XR ABDOMEN ACUTE SERIES HISTORY: [...] is unremarkable. No acute osseous abnormality is detected.[facility] [id number] 17:27:00* Test Item Value Reference Range Interpretation Comme nts POCT PREG (test code = 1605) Negative On board controls acceptable with C Line (test code = 3574) Yes POCT PREG LOT # (test code = 3575) [id number] POCT PREG TEST DATE ( test code = 3576) 11/30/2024 Lab Interpretation (test cod e = 82323-4) Normal [facility] WITH [id number] 04:29:12* Test Item Value Reference Range Interpretation [...] 34.4 g/dL 31.6-35.1 RDW-SD (test code = 06626-6) 39.6 fL 39.0-49.9 RDW-CV (test code = 788-0) 12.7 % 12.0-15.5 PLT (test code = 777-3) See_Comment [Automated messa ge] The system which generated this result transmitted reference range: 166 - 358 10*3/?L. The reference range was not used to interpret this result as normal/abnormal. MPV (test code = 48299-6) 8.8 fL 9.5-12.9 L NRBC/100 WBC (test code = 9694726112) See_Comment [Automated me ssage] The system which generated this result transmitted reference range: 0.0 - 10.0 /100 WBCs. The reference range was not used to interpret this result as normal/abnormal. NRBC x10^3 (test code = 6536156867) See_Comment [Automated messa ge] The system which generated this result transmitted reference range: 10*3/?L. The reference range was not used to interpret this result as normal/abnormal. GRAN MAT (NEUT) % (test code = 770-8) 66.2 % IMM GRAN % (test code = 2234481837) 0.50 % LYMPH % (test code = 736-9) 27.1 % MONO % (test code = 5905-5) 4.9 % EOS % (test code = 713-8) 0.9 % BASO % (test code = 706-2) 0.4 % GRAN MAT x10^3(ANC) (test code = 5186119096) 5.29 10*3/uL 1.88-7.09 IMM GRAN x10^3 (test code = 4420112907) 0.04 10*3/uL 0.00-0.06 LYMPH x10^3 (test code = 731-0) 2.16 10*3/uL 1.32-3.29 MONO x10^3 (test code = 742-7) 0.39 10*3/uL 0.33-0.92 EOS x10^3 (test code = 711-2) 0.07 10*3/uL 0.03-0.39 BASO x10^3 (test code = 704-7) 0.03 10*3/uL 0.01-0.07 Lab Interpretation (test code = 61885-3) Abnormal [facility]OL[facility] PANEL ([id number])2022-08-28 04:02:10* Test Item Value Reference Range Interpretation Comme nts NA (test code = 4457171435) 139 mmol/L 135-145 K (test code = 4051630408) 4.1 mmol/L 3.5-5.0 CL (test code = 5195292242) 102 mmol/L 98-108 CO2 TOTAL (test code = 5667177254) 26 mmol/L 23-31 AGAP (test code = 3319169917) 2-16 BUN (test code = 5135356224) 15 mg/dL 7-23 GLUCOSE (test code = 5764200362) 75 mg/dL 70-110 CREATININE (test code = 9611767709) 0.85 mg/dL 0.50-1.04 TOTAL BILI (test code = 6443482210) 0.4 mg/dL 0.1-1.1 CALCIUM (test code = 8879999380) 8.7 mg/dL 8.6-10.6 T PROTEIN (test code = 1435097624) 7.7 g/dL 6.3-8.2 ALBUMIN (test code = 0036667833) 4.6 g/dL 3.5-5.0 ALK PHOS (test code = 7454432617) 62 U/L 34-122 ALTv (test code = 1742-6) 17 U/L 5-35 AST(SGOT) (test code = 3646870325) 21 U/L 13-40 eGFR (test code = 7215480818) mL/min/1.73m2 JADEN (test code = JADEN) Association [...] or urine or abnormalities in imaging tests). [facility] 04:01:49* Test Item Value Reference Range Interpretation Comme nts LIPASE (test code = 0747089591) 82 U/L 0-220 Lab Interpretation (test cod e = 62434-3) Normal [facility] PANEL ([id number])2022-08-24 04:21:59* Test Item Value Reference Range Interpretation Comme nts NA (test code = 9439072790) 136 mmol/L 135-145 K (test code = 8171111120) 3.9 mmol/L 3.5-5.0 CL (test code = 9458763453) 98 mmol/L 98-108 CO2 TOTAL (test code = 4018979962) 31 mmol/L 23-31 AGAP (test code = 3138859403) 2-16 BUN (test code = 7952780408) 21 mg/dL 7-23 GLUCOSE (test code = 1308559910) 91 mg/dL 70-110 CREATININE (test code = 8270814135) 0.77 mg/dL 0.50-1.04 TOTAL BILI (test code = 6888852069) 0.4 mg/dL 0.1-1.1 CALCIUM (test code = 0412200184) 9.0 mg/dL 8.6-10.6 T PROTEIN (test code = 6298477252) 7.5 g/dL 6.3-8.2 ALBUMIN (test code = 4341948294) 4.3 g/dL 3.5-5.0 ALK PHOS (test code = 6470357853) 70 U/L 34-122 ALTv (test code = 1742-6) 15 U/L 5-35 AST(SGOT) (test code = 7518362719) 19 U/L 13-40 eGFR (test code = 1197413916) mL/min/1.73m2 JADEN (test code = JADEN) Association [...] or urine or abnormalities in imaging tests). [facility]2022-12-31 04:21:59* Test Item Value Reference Range Interpretation Comme nts LIPASE (test code = 1710540633) 66 U/L 0-220 Lab Interpretation (test cod e = 97697-8) Normal [facility]villeCBC WITH [id number] 03:50:59* Test Item Value Reference Range Interpretation Comme nts WBC (test code = 6690-2) See_Comment [Automated [employer]] The system which generated this result transmitted reference range: 4.30 - 11.10 10*3/?L. The reference range was not used to interpret this result as normal/abnormal. RBC (test code = 789-8) See_Comment [Automated [employer]] The system which generated this result transmitted [...] 33.3 g/dL 31.6-35.1 RDW-SD (test code = 01579-9) 39.7 fL 39.0-49.9 RDW-CV (test code = 788-0) 12.7 % 12.0-15.5 PLT (test code = 777-3) See_Comment [Automated [employer]] The system which generated this result transmitted reference range: 166 - 358 10*3/?L. The reference range was not used to interpret this result as normal/abnormal. MPV (test code = 13227-7) 8.6 fL 9.5-12.9 L NRBC/100 WBC (test code = 6608168264) See_Comment [Automated [employer] ssage] The system which generated this result transmitted reference range: 0.0 - 10.0 /100 WBCs. The reference range was not used to interpret this result as normal/abnormal. NRBC x10^3 (test code = 0879255044) See_Comment [Automated [employer]] The system which generated this result transmitted reference range: 10*3/?L. The reference range was not used to interpret this result as normal/abnormal. GRAN MAT (NEUT) % (test code = 770-8) 62.8 % IMM GRAN % (test code = 2109516227) 0.30 % LYMPH % (test code = 736-9) 29.7 % MONO % (test code = 5905-5) 6.3 % EOS % (test code = 713-8) 0.5 % BASO % (test code = 706-2) 0.4 % GRAN MAT x10^3(ANC) (test code = 2931808220) 4.85 10*3/uL 1.88-7.09 IMM GRAN x10^3 (test code = 0394660737) 0.00-0.06 LYMPH x10^3 (test code = 731-0) 2.29 10*3/uL 1.32-3.29 MONO x10^3 (test code = 742-7) 0.49 10*3/uL 0.33-0.92 EOS x10^3 (test code = 711-2) 0.04 10*3/uL 0.03-0.39 BASO x10^3 (test code = 704-7) 0.03 10*3/uL 0.01-0.07 Lab Interpretation (test code = 15246-1) Abnormal [facility] [id number] 03:42:00* Test Item Value Reference Range Interpretation Comme nts POCT PREG (test code = 1605) negative On board controls acceptable with C Line (test code = 3574) positive POCT PREG LOT # (test code = 3575) [id number] POCT PREG TEST DATE ( test code = 3576) 11/23/2023 Lab Interpretation (test cod e = 32558-2) Normal [facility]"
--- NOTE | 2024-08-08 21:42 | ER ---
Nurse's Notes [facility] Name: Lulu Barreto Age: 44 yrs Sex: Female : 1980 Arrival Date: 08/08/2024 Time: 21:28 Bed IW2 Private MD: Diagnosis: Cutaneous abscess of buttock Presentation: 08/08 21:37 Chief complaint: Patient states: possible insect bite on the right side of buttock. ha1 Coronavirus screen: Vaccine status: Patient reports being unvaccinated. Ebola Screen: No symptoms or risks identified at this time. Initial Sepsis Screen: Does the patient meet any 2 criteria? No. Patient's initial sepsis screen is negative. Does the patient have a suspected source of infection? No. Patient's initial sepsis screen is negative. Risk Assessment: Do you want to hurt yourself or someone else? Patient reports no desire to harm self or others. Onset of symptoms was August 08, 2024. 21:37 Method Of Arrival: Ambulatory [facility] 21:37 Acuity: LUCY 5 ha1 Triage Assessment: 21:40 Bite description: bite sustained to buttocks by an unknown animal. General: Appears ha1 comfortable, Behavior is calm, cooperative. Pain: Complains of pain in right gluteus cholo Pain does not radiate. Pain currently is 2 out of 10 on a pain scale. Quality of pain is described as aching. Neuro: Level of Consciousness is awake, alert, obeys commands, Oriented to person, place, time, situation. Cardiovascular: Capillary refill < 3 seconds Patient's skin is warm and dry. Respiratory: Airway is patent Respiratory effort is even, unlabored, Respiratory pattern is regular, symmetrical. GI: No signs and/or symptoms were reported involving the gastrointestinal system. Abdomen is round non-distended. Derm: Rash noted that is itchy, red, raised, on right gluteus cholo. 22:18 Bite description: animal information: vaccination(s) is not applicable. ha1 Historical: - Allergies: 21:40 PENICILLINS; ha1 - PSHx: 21:40 Cosmetic; ha1 - Immunization history:: Adult Immunizations up to date. - Infectious Disease History:: Denies. - Social history:: Smoking status: Patient denies any tobacco usage or history of. Screenin:42 [facility] ED Fall Risk Assessment (Adult) History of falling in the last 3 months, ha1 including since admission No falls in past 3 months (0 pts) Confusion or Disorientation No (0 pts) Intoxicated or Sedated No (0 pts) Impaired Gait No (0 pts) Mobility Assist Device Used No (0 pt) Altered Elimination No (0 pt) Score/Fall Risk Level 0 - 2 = Low Risk Oriented to surroundings, Maintained a safe environment, Educated pt \T\ family on fall prevention, incl call for assistance when getting out of bed, Hourly rounding (assess needs \T\ fall precautionary measures) done. Abuse screen: Denies threats or abuse. Denies injuries from another. Nutritional screening: No deficits noted. Tuberculosis screening: No symptoms or risk factors identified. Assessment: 22:19 Derm: Skin is healthy with good turgor, Skin is pink, warm \T\ dry. ha1 Vital Signs: 21:37 BP 140 / 83; Pulse 99; Resp 18 S; Temp 97.2(T); Pulse Ox 100% on R/A; Weight 63.05 kg; ha1 Height 5 ft. 3 in. ; 21:37 Body Mass Index 24.62 (63.05 kg, 160.02 cm) ha1 ED Course: 21:32 Patient arrived in ED. im 21:33 Catrina Carranza FNP-C is [facility]. kb 21:33 Lazaro Andres MD is Attending Physician. kb 21:33 Patient has correct armband on for positive identification. ha1 21:40 Triage completed. ha1 21:43 Arm band placed on right wrist. ha1 22:15 Provided Education on: follow ups and medication administration . ha1 22:15 No provider procedures requiring assistance completed. Patient did not have IV access ha1 during this emergency room visit. Administered Medications: 21:45 Drug: Trimethoprim-Sulfamethoxazole PO (160 mg-800 mg (DS) 1 tablet PO once Route: PO; ha1 22:15 Follow up: Response: No adverse reaction ha1 Medication: 21:43 VIS not applicable for this client. ha1 Outcome: 21:41 Discharge ordered by . kb 22:15 Discharged to home ambulatory, ha1 22:15 Condition: stable 22:15 Discharge instructions given to patient, Instructed on discharge instructions, follow up and referral plans. medication usage, Demonstrated understanding of instructions, follow-up care, medications, Prescriptions given X 1, 22:19 Patient left the ED. ha1 Signatures: Catrina Carranza FNP-C FNP-Ckb Ayala, Heidy, RN RN ha1 Diana Hughes Corrections: (The following items were deleted from the chart) 21:41 21:40 PMHx: Marlee; ha1 ha1
--- NOTE | 2024-08-08 21:42 | EDPHYS ---
Physician Documentation [facility] Name: Lulu Barreto Age: 44 yrs Sex: Female : 1980 Arrival Date: 08/08/2024 Time: 21:28 Bed IW2 Private MD: ED Physician Lazaro Andres HPI: 08/08 21:42 This 44 yrs old Female presents to ER via Ambulatory with complaints of Insect Bite - kb on buttock. 21:42 Pt is a 44 year old female who presents for abscess to right buttock that started 2 kb days ago. Denies fever. . Historical: - Allergies: 21:40 PENICILLINS; ha1 - PSHx: 21:40 Cosmetic; ha1 - Immunization history:: Adult Immunizations up to date. - Infectious Disease History:: Denies. - Social history:: Smoking status: Patient denies any tobacco usage or history of. ROS: 21:42 Constitutional: As per HPI kb Exam: 21:42 Constitutional: This is a well developed, well nourished patient who is awake, alert, kb and in no acute distress. Head/Face: Normocephalic, atraumatic. ENT: Moist Mucous membranes Respiratory: Respirations even and unlabored. No increased work of breathing. Talking in full sentences MS/ Extremity: Pulses equal, no cyanosis. Neurovascular intact. Full, normal range of motion. Neuro: Awake and alert, GCS 15, oriented to person, place, time, and situation. 21:42 Skin: abscess, that is small, of the right gluteus cholo, no drainable abscess appreciated, Vital Signs: 21:37 BP 140 / 83; Pulse 99; Resp 18 S; Temp 97.2(T); Pulse Ox 100% on R/A; Weight 63.05 kg; ha1 Height 5 ft. 3 in. ; 21:37 Body Mass Index 24.62 (63.05 kg, 160.02 cm) ha1 MDM: 21:33 Medical Screening Exam initiated kb 21:43 Differential diagnosis: abscess, insect bite, cellulitis. Data reviewed: vital signs, kb nurses notes. Counseling: I had a detailed discussion with the patient and/or guardian regarding the historical points, exam findings, and any diagnostic results supporting the discharge/admit diagnosis, the need for outpatient follow up, a family practitioner, to return to the emergency department if symptoms worsen or persist or if there are any questions or concerns that arise at home. Administered Medications: 21:45 Drug: Trimethoprim-Sulfamethoxazole PO (160 mg-800 mg (DS) 1 tablet PO once Route: PO; ha1 22:15 Follow up: Response: No adverse reaction ha1 Disposition Summary: 08/08/24 21:41 Discharge Ordered Notes: Location: Home kb Condition: Stable kb Diagnosis - Cutaneous abscess of buttock kb Followup: kb - With: Emergency Department - When: As needed - Reason: Worsening of condition Followup: kb - With: Private Physician - When: 2 - 3 days - Reason: Recheck today's complaints, Continuance of care, Re-evaluation by your physician Discharge Instructions: - Discharge Summary Sheet kb - Skin Abscess, [id number]-[id number] kb Forms: - Medication Reconciliation Form kb - Antibiotic Education kb - Prescription Opioid Use kb - Patient Portal Instructions kb - Leadership Thank You Letter kb Prescriptions: - Bactrim DS 800-160 mg Oral Tablet - take 1 tablet ORAL route every 12 hours for 10 days; 20 tablet; Refills: 0, kb Product Selection Permitted Signatures: Catrina Carranza, BINDER SELECTOR-C BINDER SELECTOR-Ckb Abida Cook RN RN ha1 Corrections: (The following items were deleted from the chart) 21:41 21:40 PMHx: Marlee; ha1 ha1
[2024-08-08] MEDS ORDERED: SMZ./TMP. 800/160 MG TABLET ONE (21:46)
[2024-08-08 22:33] VITALS: BP 140/83; TEMP 97.2; O2SAT 100
== END 2024-08-08 22:19 | disposition home or self-care (01) ==
LOC: ER 21:28
DX: L02.31 Cutaneous abscess of buttock (principal)
CPT/HCPCS: 99283

== ENCOUNTER 2025-05-26 13:23 | Emergency (ER) | payer OTHER, SELFPAY ==
--- OUTSIDE RECORDS SUMMARY | 2025-05-26 13:32 | XMS REPORT | Continuity of Care Document ---
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 [facility] Oxygen saturation in Arterial blood by Pulse oximetry 2023-12-11 21:02:00 98 /min [facility] Body temperature 2023-12-11 20:52:00 35.56 Chanel [facility] Respiratory rate 2023-12-11 20:52:00 16 /min [facility] Body height 2023-12-11 20:52:[address] [facility] Body weight 2023-12-11 20:52:[address] [facility] BMI 2023-12-11 20:52:00 26.22 kg/m2 [facility] Systolic blood pressure 2023-12-10 21:14:00 128 mm[Hg] [facility] Diastolic blood pressure 2023-12-10 21:14:00 83 mm[Hg] [facility] Heart rate 2023-12-10 21:14:00 79 /min [facility] Body height 2023-12-10 21:14:[address] [facility] Body weight 2023-12-10 21:14:[address] [facility] BMI 2023-12-10 21:14:00 26.61 kg/m2 [facility] Oxygen saturation in Arterial blood by Pulse oximetry 2023-12-10 21:14:00 100 /min [facility] Systolic blood pressure 2023-11-26 21:17:00 143 mm[Hg] [facility] Diastolic blood pressure 2023-11-26 21:17:00 89 mm[Hg] [facility] Heart rate 2023-11-26 21:17:00 84 /min [facility] Respiratory rate 2023-11-26 21:17:00 18 /min [facility] Body height 2023-11-26 21:17:[address] [facility] Body weight 2023-11-26 21:17:[address] [facility] BMI 2023-11-26 21:17:00 25.40 kg/m2 [facility] Oxygen saturation in Arterial blood by Pulse oximetry 2023-11-26 21:17:00 99 /min [facility] Systolic blood pressure 2023-11-19 20:18:00 125 mm[Hg] [facility] Diastolic blood pressure 2023-11-19 20:18:00 79 mm[Hg] [facility] Heart rate 2023-11-19 20:18:00 101 /min [facility] Body temperature 2023-11-19 20:18:00 37.11 Chanel [facility] Respiratory rate 2023-11-19 20:18:00 19 /min [facility] Body height 2023-11-19 20:18:[address] [facility] Body weight 2023-11-19 20:18:[address] [facility] BMI 2023-11-19 20:18:00 25.15 kg/m2 [facility] Oxygen saturation in Arterial blood by Pulse oximetry 2023-11-19 20:18:00 100 /min [facility] Systolic blood pressure 2023-11-13 19:43:00 121 mm[Hg] [facility] Diastolic blood pressure 2023-11-13 19:43:00 81 mm[Hg] [facility] Heart rate 2023-11-13 19:43:00 86 /min [facility] Respiratory rate 2023-11-13 19:43:00 18 /min [facility] Body height 2023-11-13 19:43:[address] [facility] Body weight 2023-11-13 19:43:[address] [facility] BMI 2023-11-13 19:43:00 24.91 kg/m2 [facility] Oxygen saturation in Arterial blood by Pulse oximetry 2023-11-13 19:43:00 100 /min [facility] Systolic blood pressure 2023-10-28 19:24:07 120 mm[Hg] [facility] Diastolic blood pressure 2023-10-28 19:24:07 84 mm[Hg] [facility] Heart rate 2023-10-28 19:24:07 98 /min [facility] Respiratory rate 2023-10-28 19:24:07 20 /min [facility] Oxygen saturation in Arterial blood by Pulse oximetry 2023-10-28 19:24:07 100 /min [facility] Body temperature 2023-10-28 17:08:00 36.78 Chanel [facility] Body height 2023-10-28 17:08:[address] [facility] Body weight 2023-10-28 17:08:[address] [facility] BMI 2023-10-28 17:08:00 23.74 kg/m2 [facility] Systolic blood pressure 2023-09-06 22:10:00 122 mm[Hg] [facility] Diastolic blood pressure 2023-09-06 22:10:00 85 mm[Hg] [facility] Heart rate 2023-09-06 22:10:00 104 /min [facility] Body temperature 2023-09-06 22:10:00 36.78 Chanel [facility] Respiratory rate 2023-09-06 22:10:00 17 /min [facility] Body height 2023-09-06 22:10:[address] [facility] Body weight 2023-09-06 22:10:[address] [facility] BMI 2023-09-06 22:10:00 23.91 kg/m2 [facility] Oxygen saturation in Arterial blood by Pulse oximetry 2023-09-06 22:10:00 100 /min [facility] Systolic blood pressure 2023-05-17 15:13:00 125 mm[Hg] [facility] Diastolic blood pressure 2023-05-17 15:13:00 81 mm[Hg] [facility] Heart rate 2023-05-17 15:13:00 102 /min [facility] Body temperature 2023-05-17 15:13:00 36.72 Chanel [facility] Respiratory rate 2023-05-17 15:13:00 16 /min [facility] Body height 2023-05-17 15:13:[address] [facility] Body weight 2023-05-17 15:13:[address] [facility] BMI 2023-05-17 15:13:00 23.61 kg/m2 [facility] Systolic blood pressure 2023-01-18 16:51:00 121 mm[Hg] [facility] Diastolic blood pressure 2023-01-18 16:51:00 82 mm[Hg] [facility] Heart rate 2023-01-18 16:51:00 97 /min [facility] Respiratory rate 2023-01-18 16:51:00 16 /min [facility] Oxygen saturation in Arterial blood by Pulse oximetry 2023-01-18 16:51:00 100 /min [facility] Body temperature 2023-01-18 14:31:00 36.67 Chanel [facility] Body height 2023-01-18 14:31:[address] [facility] Body weight 2023-01-18 14:31:[address] [facility] BMI 2023-01-18 14:31:00 23.78 kg/m2 [facility] Systolic blood pressure 2022-08-28 06:06:07 99 mm[Hg] [facility] Diastolic blood pressure 2022-08-28 06:06:07 70 mm[Hg] [facility] Heart rate 2022-08-28 06:06:07 95 /min [facility] Respiratory rate 2022-08-28 06:06:07 18 /min [facility] Oxygen saturation in Arterial blood by Pulse oximetry 2022-08-28 06:06:07 100 /min [facility] Body temperature 2022-08-28 02:33:00 37 Chanel [facility] Body height 2022-08-28 02:33:[address] [facility] Body weight 2022-08-28 02:33:[address] [facility] BMI 2022-08-28 02:33:00 27.46 kg/m2 [facility] Systolic blood pressure 2022-08-24 02:32:00 123 mm[Hg] [facility] Diastolic blood pressure 2022-08-24 02:32:00 82 mm[Hg] [facility] Heart rate 2022-08-24 02:32:00 97 /min [facility] Body temperature 2022-08-24 02:32:00 37.22 Chanel [facility] Respiratory rate 2022-08-24 02:32:00 18 /min [facility] Body height 2022-08-24 02:32:[address] [facility] Body weight 2022-08-24 02:32:[address] [facility] BMI 2022-08-24 02:32:00 27.46 kg/m2 [facility] Oxygen saturation in Arterial blood by Pulse oximetry 2022-08-24 02:32:00 100 /min [facility] Procedures Procedure Date / Time Performed Performing Clinician Source CBC WITH DIFF 2024-08-24 16:23:[address] GC & CHLAMYDIA AMPLIFIED ASSAY 2024-08-24 16:23:00 Jeremy [facility] HIV 1/2 AG-AB WITH REFLEX 2024-08-24 16:23:00 Jeremy [facility] TRICHOMONAS AMPLIFIED ASSAY 2024-08-24 16:23:00 Jeremy [facility] SYPHILIS IGG/IGM 2024-08-24 16:23:00 Elenita Luna [facility] BCCS-RELATED DOCUMENTATION 2024-05-26 21:35:32 Doctor Unassigned, Remlap [facility] BCCS-RELATED DOCUMENTATION 2024-05-26 21:01:03 Doctor Unassigned, Remlap [facility] RADIOLOGY DOCUMENTATION 2023-12-24 18:34:32 Doct or Unassigned, Remlap [facility] BI ULTRASOUND BREAST COMPLETE RIGHT 2023-12-11 19:15:40 Jefferson [facility] BI DIAGNOSTIC TOMOSYNTHESIS BILATERAL 2023-12-11 18:45:[address] [facility] POCT TEST 2023-11-19 20:42:00 Gene Welsh [facility] URINALYSIS 2023-11-19 20:30:00 Brenda Welsh [facility] ASSIGNMENT OF BENEFITS 2023-10-28 18:35:56 Docto r Unassigned, Remlap [facility] URINALYSIS 2023-10-28 17:43:[address] [facility] RAPID INFLUENZA A/B 2023-10-28 17:43:00 Amrita Boateng [facility] COVID-19 (ID NOW RAPID TESTING) 2023-10-28 17:43:00 Amrita Boateng [facility] XR ABDOMEN ACUTE SERIES 2023-10-28 17:37:00 Diane Boateng [facility] POCT TEST 2023-10-28 17:27:00 Amrita Boateng [facility] CONSENT/REFUSAL FOR DIAGNOSIS AND TREATMENT 2023-10-28 17:01:18 Doctor Unassigned, Remlap [facility] ASSIGNMENT OF BENEFITS 2023-09-06 23:25:50 Docto r Unassigned, Remlap [facility] RAPID STREP SCREEN FOR GROUP A 2023-09-06 22:41:00 Louise House [facility] RAPID INFLUENZA A/B 2023-09-06 22:41:00 Tez House [facility] COVID-19 (ID NOW RAPID TESTING) 2023-09-06 22:41:00 Louise House [facility] CONSENT/REFUSAL FOR DIAGNOSIS AND TREATMENT 2023-09-06 22:05:33 Doctor Unassigned, Remlap [facility] BCCS-RELATED DOCUMENTATION 2023-06-27 05:01:00 Doctor Unassigned, Remlap [facility] BI ULTRASOUND BREAST COMPLETE RIGHT 2023-06-05 18:38:00 Obdulia Paulino [facility] BI DIAGNOSTIC TOMOSYNTHESIS RIGHT 2023-06-05 18:18:16 Greer Mendez [facility] GARDASIL 9 (HPV 9V) VACCINE 2023-05-17 15:28:56 Obdulia Paulino [facility] EXTERNAL PROVIDER RECORDS 2023-05-17 05:01:00 Doctor Unassigned, Remlap [facility] ASSIGNMENT OF BENEFITS 2023-05-01 19:06:56 Docto r Unassigned, Remlap [facility] CT CERVICAL SPINE WO CONTRAST 2023-01-18 15:38:46 Chandrakant Hernandez [facility] CT HEAD WO CONTRAST 2023-01-18 15:38:46 Chandrakant Hernandez [facility] AUTHORIZATION FOR RELEASE OF PHI 2022-09-30 06:01:00 Doctor Unassigned, Remlap [facility] LACTIC ACID WHOLE BLOOD 2022-08-28 04:57:00 Renee Hernandez [facility] CT ABDOMEN PELVIS W CONTRAST 2022-08-28 04:40:00 Chandrakant Hernandez [facility] CBC WITH DIFF 2022-08-28 04:15:00 Chandrakant Hernandez [facility] LIPASE 2022-08-28 03:31:00 Chandrakant Hernandez [facility] COMP. METABOLIC PANEL (47087) 2022-08-28 03:31:00 Chandrakant Hernandez [facility] URINALYSIS 2022-08-28 03:31:00 Chandrakant Hernandez [facility] CONSENT/REFUSAL FOR DIAGNOSIS AND TREATMENT 2022-08-28 02:24:47 Doctor Unassigned, Remlap [facility] POCT TEST 2022-08-24 03:42:00 Cesar Lepe [facility] LIPASE 2022-08-24 03:37:00 Earnest Lepe [facility] COMP. METABOLIC PANEL ([id number]) 2022-08-24 03:37:00 Earnest Lepe [facility] CBC WITH DIFF 2022-08-24 03:37:00 [facility]-24 03:37:00 Earnest Lepe [facility] RAPID INFLUENZA A/B 2022-08-24 03:37:00 Cesar Lepe [facility] COVID-19 (ID NOW RAPID TESTING) 2022-08-24 03:37:00 Earnest Lepe [facility] NOTICE OF PRIVACY PRACTICES 2022-08-24 02:25:40 Doctor Unassigned, Remlap [facility] CONSENT/REFUSAL FOR DIAGNOSIS AND TREATMENT 2022-08-24 02:25:26 Doctor Unassigned, Remlap [facility] BI ULTRASOUND BREAST COMPLETE LEFT 2022-04-19 16:54:50 Tran Gracia [facility] BI DIAGNOSTIC TOMOSYNTHESIS BILATERAL 2022-04-19 15:45:17 Tran Gracia [facility] EXTERNAL PROVIDER RECORDS 2022-03-11 05:01:00 Doctor Unassigned, Remlap [facility] Encounters Start Date/Time End Date/Time Encounter Type Admission Type Attending Clinicians Care Facility Care Department Encounter ID Source 2024-05-07 09:54:08 Outpatient JIE FLEMING [facility] ALICIA [id number] [facility] 2024-01-03 12:16:37 Outpatient R JIE FLEMING [facility] [id number] [facility] 2021-06-25 12:18:21 Emergency [facility] [id number] [facility] 2021-06-24 22:33:05 Emergency [facility] [id number] [facility] 2021-06-24 18:47:40 Emergency [facility] [id number] [facility] 2021-06-24 18:26:56 Emergency [facility] [id number] [facility] 2025-04-15 00:00:00 2025-05-21 18:30:46 Patient Secure Msg Doctor Unassigned, Remlap Doctor Unassigned, Remlap [facility] ([facility]) 1.2840.114 350.1.13.10 4.2.7.2.686 [id number] [facility] 2024-12-18 00:00:00 2024-12-20 07:21:38 Patient Secure Msg Doctor Unassigned, Remlap Doctor Unassigned, Remlap [facility] TAPERING MACHINE OPERATOR [facility] 1.2840.114 350.1.13.10 4.2.7.2.686 [id number] [facility] 2024-12-06 00:00:00 2024-12-06 00:00:00 Outpatient ELENITA SCALES [facility] [id number] [facility] 2024-01-01 00:00:00 2024-10-09 07:49:08 Orders Only Doctor Unassigned, Remlap Doctor Unassigned, Remlap [facility] ([facility]) 1.2840.114 350.1.13.10 4.2.7.2.686 [id number] [facility] 2024-05-26 00:00:00 2024-10-09 06:53:27 Orders Only Doctor Unassigned, Remlap Doctor Unassigned, Remlap [facility] ([facility]) 1.2840.114 350.1.13.10 4.2.7.2.686 [id number] [facility] 2024-05-26 00:00:00 2024-10-09 06:53:18 Orders Only Doctor Unassigned, Remlap Doctor Unassigned, Remlap [facility] ([facility]) 1.2.840.114 350.1.13.10 4.2.7.2.686 [id number] [facility] 2021-04-03 00:00:00 2024-10-09 02:54:07 Orders Only Kitty Clark Clark , Kitty SANTOS 1.2.840.114 350.1.13.10 4.2.7.2.686 [id number] [facility] 2023-11-04 00:00:00 2024-10-09 02:34:29 Orders Only Kimberly, Sammi Harris, [facility] 1.2.840.114 350.1.13.10 4.2.7.2.686 [id number] [facility] 2023-11-13 00:00:00 2024-10-09 02:34:14 Orders Only Kimberly, Sammi Kimberly, [facility] 1.2.840.114 350.1.13.10 4.2.7.2.686 [id number] [facility] 2023-12-12 00:00:00 2024-10-09 02:16:12 Orders Only Doctor Unassigned, Remlap Doctor Unassigned, Remlap [facility] ([facility]) 1.2.840.114 350.1.13.10 4.2.7.2.686 [id number] [facility] 2023-12-24 00:00:00 2024-10-09 02:07:26 Orders Only Doctor Unassigned, Remlap Doctor Unassigned, Remlap [facility] ([facility]) 1.2.840.114 350.1.13.10 4.2.7.2.686 [id number] [facility] 2024-09-27 00:00:00 2024-09-28 07:15:50 Patient Secure Msg Doctor Unassigned, Remlap Doctor Unassigned, Remlap [facility] TAPERING MACHINE OPERATOR [facility] CHILD [facility] 1.840.114 350.1.13.10 4.2.7.2.686 [id number] [facility] 2024-09-24 15:00:00 2024-09-24 15:00:00 Outpatient ABY COOK [facility] [id number] [facility] 2024-09-16 09:15:00 2024-09-16 09:15:00 Outpatient R ELENITA LUNA [facility] [id number] [facility] 2024-08-31 15:30:00 2024-08-31 15:30:00 Outpatient R ELENITA LUNA [facility] [id number] [facility] 2024-08-24 00:00:00 2024-08-26 12:58:23 Patient Secure Msg Jeremy [facility] TAPERING MACHINE OPERATOR [facility] ..114 350.1.13.10 4.2.7.2.686 [id number] [facility] 2024-08-24 09:00:00 2024-08-24 10:24:18 Outpatient R ELENITA LUNA [facility] [id number] [facility] 2024-08-24 09:00:00 2024-08-24 10:24:18 Office Visit Elenita Luna [facility] TAPERING MACHINE OPERATOR [facility] 1..114 350.1.13.10 4.2.7.2.686 [id number] [facility] 2024-08-23 00:00:00 2024-08-23 15:13:41 Patient Secure Msg Jeremy Elenita [facility] TAPERING MACHINE OPERATOR [facility] 1.840.114 350.1.13.10 4.2.7.2.686 [id number] [facility] 2024-08-23 00:00:00 2024-08-23 08:07:51 Patient Secure Msg Elenita Luna [facility] TAPERING MACHINE OPERATOR [facility] 1..840.114 350.1.13.10 4.2.7.2.686 [id number] [facility] 2024-08-20 15:30:00 2024-08-20 15:30:00 Outpatient ABY COOK [facility] [id number] [facility] 2024-08-11 00:00:00 2024-08-12 07:17:22 Patient Secure Msg Doctor Unassigned, Remlap Doctor Unassigned, Remlap [facility] ([facility] 1..840.114 350.1.13.10 4.2.7.2.686 [id number] [facility] 2024-08-11 00:00:00 2024-08-11 07:03:31 Patient Secure Msg Doctor Unassigned, Remlap Doctor Unassigned, Remlap [facility] TAPERING MACHINE OPERATOR [facility] 1..840.114 350.1.13.10 4.2.7.2.686 [id number] [facility] 2024-07-16 16:15:00 2024-07-16 16:15:00 Outpatient ABY COOK [facility] [id number] [facility] 2024-07-15 16:30:00 2024-07-15 16:30:00 Outpatient JIE DE SANTIAGO PAMELA [facility] [id number] [facility] 2024-06-23 15:00:00 2024-06-23 15:00:00 Outpatient ELENITA SCALES [facility] [id number] [facility] 2024-06-09 14:50:51 2024-06-09 23:59:00 Hospital Encounter Obdulia Paulino [facility] 1.840.114 350.1.13.10 4.2.7.2.686 [id number] [facility] 2024-06-09 14:49:38 2024-06-09 14:49:38 Outpatient R OBDULIA PAULINO [facility] [id number] [facility] 2024-06-09 14:49:38 2024-06-09 14:49:38 Hospital Encounter Obdulia Paulino [facility] 1.2.840.114 350.1.13.10 4.2.7.2.686 [id number] [facility] 2024-05-20 00:00:00 2024-06-03 11:27:33 Telephone Jie Fleming [facility] 1..840.114 350.1.13.10 4.2.7.2.686 [id number] [facility] 2024-05-18 15:20:00 2024-05-18 15:20:00 Outpatient R RONIT VALDIVIA [facility] [id number] [facility] 2024-05-18 14:30:00 2024-05-18 14:30:00 Outpatient R ELENITA LUNA [facility] [id number] [facility] 2024-05-13 00:00:00 2024-05-13 11:06:38 Telephone Jie Fleming [facility] 1.2.840.114 350.1.13.10 4.2.7.2.686 [id number] [facility] 2024-05-06 11:30:00 2024-05-06 12:15:38 Outpatient R JIE FLEMING [facility] [id number] [facility] 2024-05-06 11:30:00 2024-05-06 12:15:38 Office Visit Jie Fleming [facility] 1.2.840.114 350.1.13.10 4.2.7.2.686 [id number] [facility] 2024-04-07 00:00:00 2024-04-07 15:32:47 Patient Secure Msg Doctor Unassigned, Remlap Doctor Unassigned, Remlap [facility] TAPERING MACHINE OPERATOR [facility] MATERNAL & CHILD [facility] 1.2840.114 350.1.13.10 4.2.7.2.686 [id number] 107 [id number] [facility] 2024-02-05 00:00:00 2024-02-05 12:24:41 Telephone Elvira Booker [facility] 1.840.114 350.1.13.10 4.2.7.2.686 [id number] 161 [id number] [facility] 2024-02-04 00:00:00 2024-02-04 08:23:34 Case Management [facility] 1..114 350.1.13.10 4.2.7.2.686 [id number] [facility] 2024-01-29 14:30:00 2024-01-29 14:30:00 Outpatient R JIE FLEMING [facility] [id number] [facility] 2024-01-27 00:00:00 2024-01-27 13:55:22 Telephone Elvira Booker [facility] 1.2840.114 350.1.13.10 4.2.7.2.686 [id number] [facility] 2024-01-13 00:00:00 2024-01-16 12:05:02 Telephone Jie Fleming [facility] 1.2840.114 350.1.13.10 4.2.7.2.686 [id number] [facility] 2024-01-15 00:00:00 2024-01-15 17:32:30 Patient Secure Msg Doctor Unassigned, Remlap [facility] 1.2.840.114 350.1.13.10 4.2.7.2.686 [id number] [facility] 2024-01-15 00:00:00 2024-01-15 16:21:29 Telephone Jie Fleming [facility] 1.2.840.114 350.1.13.10 4.2.7.2.686 [id number] [facility] 2024-01-09 00:00:00 2024-01-12 08:28:19 Patient Secure Msg Doctor Unassigned, Remlap [facility] TAPERING MACHINE OPERATOR [facility] MATERNAL & CHILD [facility] 1.2.840.114 350.1.13.10 4.2.7.2.686 [id number] 107 [id number] [facility] 2024-01-01 00:00:00 2024-01-01 09:50:38 Telephone Miko Young [facility] [place] 1.2.840.114 350.1.13.10 4.2.7.2.686 [id number] [facility] 2023-12-25 00:00:00 2023-12-25 00:00:00 Telephone Greer Mendez [facility] TAPERING MACHINE OPERATOR [facility] 1.2.840.114 350.1.13.10 4.2.7.2.686 [id number] [facility] 2023-12-12 00:00:00 2023-12-12 00:00:00 Telephone Jie Fleming [facility] 1.2.840.114 350.1.13.10 4.2.7.2.686 [id number] [facility] 2023-12-11 12:07:42 2023-12-11 23:59:00 Hospital Encounter [facility] 1.840.114 350.1.13.10 4.2.7.2.686 [id number] 800 [id number] [facility] 2023-12-11 15:30:00 2023-12-11 17:09:52 Office Visit [facility] 1.840.114 350.1.13.10 4.2.7.2.686 [id number] [facility] 2023-12-11 12:05:37 2023-12-11 12:06:00 Outpatient R [facility] [id number] [facility] 2023-12-11 12:05:37 2023-12-11 12:06:00 Hospital Encounter [facility] 1.840.114 350.1.13.10 4.2.7.2.686 [id number] 800 [id number] [facility] 2023-12-10 16:20:00 2023-12-10 16:26:57 Outpatient RONIT WILSON [facility] [id number] [facility] 2023-12-10 16:20:00 2023-12-10 16:26:57 Office Visit Ronit Valdivia [facility] 1..840.114 350.1.13.10 4.2.7.2.686 [id number] [id number] [facility] 2023-12-09 13:00:00 2023-12-09 13:00:00 Outpatient R ARMAAN MOY CRAIG [facility] [id number] [facility] 2023-12-04 13:00:00 2023-12-04 14:00:00 Office Visit Miko Young Erin [facility] 1..840.114 350.1.13.10 4.2.7.2.686 [id number] 161 [id number] [facility] 2023-12-04 13:00:00 2023-12-04 13:00:00 Outpatient R SLIME STORM [facility] [id number] [facility] 2023-11-26 16:20:00 2023-11-26 16:40:00 Office Visit Ronit Valdivia [facility] 1..840.114 350.1.13.10 4.2.7.2.686 [id number] [id number] [facility] 2023-11-26 16:20:00 2023-11-26 16:20:00 Outpatient R RONIT VALDIVIA [facility] [id number] [facility] 2023-11-25 00:00:00 2023-11-25 00:00:00 Telephone Greer Mendez [facility] TAPERING MACHINE OPERATOR [facility]ERNAL & [facility] 1..840.114 350.1.13.10 4.2.7.2.686 [id number] 107 [id number] [facility] 2023-11-19 15:20:00 2023-11-19 16:49:00 [facility] [id number] [facility] 2023-11-19 15:20:00 2023-11-19 16:49:00 Emergency Brenda Welsh [facility] ..840.114 350.1.13.10 4.2.7.2.686 [id number] [facility] 2023-11-13 15:00:00 2023-11-13 16:14:29 Outpatient R RONIT VALDIVIA [facility] [id number] [facility] 2023-11-13 15:00:00 2023-11-13 16:14:29 Office Visit Ronit Valdivia [facility] 1.84.114 350.1.13.10 4.2.7.2.686 [id number] [id number] [facility] 2023-10-28 11:09:00 2023-10-28 13:25:00 Emergency X AMRITA BOATENG [facility] ERT [id number] [facility] 2023-10-28 11:09:00 2023-10-28 13:25:00 Emergency Amrita Boateng [facility] 1..114 350.1.13.10 4.2.7.2.686 [id number] [id number] [facility] 2023-10-27 14:00:00 2023-10-27 14:00:00 Outpatient MASON ALLRED [id number] Chari Mares 2023-10-04 00:00:00 2023-10-04 00:00:00 Patient Secure Msg Doctor Unassigned, Remlap [facility] .84.114 350.1.13.10 4.2.7.2.686 [id number] 044 [id number] [facility] 2023-09-06 16:18:00 2023-09-06 18:57:00 Emergency X HOUSESAUDLOUISE [facility] ERT [id number] [facility] 2023-09-06 16:18:00 2023-09-06 18:57:00 Emergency Louise House [facility] 1..114 350.1.13.10 4.2.7.2.686 [id number] [id number] [facility] 2023-08-29 13:00:00 2023-08-29 13:00:00 Outpatient GREER PALMER [facility] [id number] [facility] 2023-08-28 00:00:00 2023-08-28 00:00:00 Patient Secure Msg Doctor Unassigned, Remlap [facility] 1.2.840.114 350.1.13.10 4.2.7.2.686 [id number] [id number] [facility] 2023-08-15 13:00:00 2023-08-15 13:00:00 Outpatient R GREER MENDEZ [facility] [id number] [facility] 2023-07-28 00:00:00 2023-07-28 00:00:00 Patient Secure Msg Doctor Unassigned, Remlap [facility] 1.840.114 350.1.13.10 4.2.7.2.686 [id number] [id number] [facility] 2023-07-14 15:00:00 2023-07-14 15:00:00 Outpatient R [facility] [id number] [facility] 2023-06-27 00:00:00 2023-06-27 00:00:00 Orders Only Doctor Unassigned, Remlap [facility] 1.840.114 350.1.13.10 4.2.7.2.686 [id number] [facility] 2023-06-10 00:00:00 2023-06-10 00:00:00 Case Management Obdulia Paulino [facility] 1.0.114 350.1.13.10 4.2.7.2.686 [id number] [facility] 2023-06-06 00:00:00 2023-06-06 00:00:00 Telephone Greer Mendez [facility] TAPERING MACHINE OPERATOR [facility] 1.0.114 350.1.13.10 4.2.7.2.686 [id number] 107 [id number] [facility] 2023-06-05 12:06:38 2023-06-05 23:59:00 Hospital Encounter Obdulia Paulino [facility] 1.840.114 350.1.13.10 4.2.7.2.686 [id number] 800 [id number] [facility] 2023-06-05 12:06:31 2023-06-05 23:59:00 Outpatient R GREER MENDEZ [facility] [id number] [facility] 2023-06-05 12:06:31 2023-06-05 23:59:00 Hospital Encounter Greer Mendez [facility] 1.840.114 350.1.13.10 4.2.7.2.686 [id number] 800 [id number] [facility] 2023-06-02 00:00:00 2023-06-02 00:00:00 Patient Secure Msg Greer Mendez [facility] TAPERING MACHINE OPERATOR [facility] MATERNAL & CHILD [facility] 1.840.114 350.1.13.10 4.2.7.2.686 [id number] 107 [id number] [facility] 2023-06-02 00:00:00 2023-06-02 00:00:00 Patient Secure Msg CalebGreer solis Radha [facility] TAPERING MACHINE OPERATOR [facility] 1.840.114 350.1.13.10 4.2.7.2.686 [id number] 107 [id number] [facility] 2023-05-29 00:00:00 2023-05-29 00:00:00 Patient Secure Msg Doctor Unassigned, Remlap [facility] 1.840.114 350.1.13.10 4.2.7.2.686 [id number] 044 [id number] [facility] 2023-05-19 00:00:00 2023-05-19 00:00:00 [facility] 1.0.114 350.1.13.10 4.2.7.2.686 [id number] [facility] 2023-05-18 00:00:00 2023-05-18 00:00:00 Patient Secure Msg Doctor Unassigned, Remlap [facility] 1.840.114 350.1.13.10 4.2.7.2.686 [id number] [id number] [facility] 2023-05-17 10:15:00 2023-05-17 11:09:49 Outpatient R OBDULIA PAULINO [facility] [id number] [facility] 2023-05-17 10:15:00 2023-05-17 11:09:49 Office Visit Provider, Chetna Hsu Obdulia [facility] TAPERING MACHINE OPERATOR [facility] 1.840.114 350.1.13.10 4.2.7.2.686 [id number] 107 [id number] [facility] 2023-05-17 00:00:00 2023-05-17 00:00:00 Orders Only Doctor Unassigned, Remlap [facility] 1..114 350.1.13.10 4.2.7.2.686 [id number] [id number] [facility] 2023-05-17 00:00:00 2023-05-17 00:00:00 Patient Secure Msg Doctor Unassigned, Remlap [facility] 1.840.114 350.1.13.10 4.2.7.2.686 [id number] [id number] [facility] 2023-05-14 13:30:00 2023-05-14 13:30:00 Outpatient CHETNA LAURENT [facility] [id number] [facility] 2023-05-12 00:00:00 2023-05-12 00:00:00 Case Management Obdulia Paulino [facility] 1.840.114 350.1.13.10 4.2.7.2.686 [id number] [facility] 2023-05-12 00:00:00 2023-05-12 00:00:00 Telephone Greer Mendez [facility] TAPERING MACHINE OPERATOR [facility] 1.2.840.114 350.1.13.10 4.2.7.2.686 [id number] 107 [id number] [facility] 2023-05-09 00:00:00 2023-05-09 00:00:00 Patient Secure Msg Doctor Unassigned, Remlap [facility] 1.2.840.114 350.1.13.10 4.2.7.2.686 [id number] [id number] [facility] 2023-05-08 00:00:00 2023-05-08 00:00:00 Telephone Tran Gracia [facility] TAPERING MACHINE OPERATOR [facility] 1.2.840.114 350.1.13.10 4.2.7.2.686 [id number] [facility] 2023-05-01 14:10:36 2023-05-01 23:59:00 Outpatient R ABY PHELPS [facility] [id number] [facility] 2023-05-01 14:10:36 2023-05-01 23:59:00 Hospital Encounter Aby Phelps [facility] 1.2.840.114 350.1.13.10 4.2.7.2.686 [id number] 800 [id number] [facility] 2023-05-01 00:00:00 2023-05-01 00:00:00 Orders Only Doctor Unassigned, Remlap [facility] 1.2840.114 350.1.13.10 4.2.7.2.686 [id number] [facility] 2023-04-30 00:00:00 2023-04-30 00:00:00 Patient Secure Msg Doctor Unassigned, Remlap [facility] 1.2.840.114 350.1.13.10 4.2.7.2.686 [id number] 044 [id number] [facility] 2023-04-03 00:00:00 2023-04-03 00:00:00 Patient Secure Msg Doctor Unassigned, Remlap [facility] 1.2.840.114 350.1.13.10 4.2.7.2.686 [id number] [id number] [facility] 2023-01-25 00:00:00 2023-01-25 00:00:00 Patient Secure Msg Doctor Unassigned, Remlap [facility] 1.2.840.114 350.1.13.10 4.2.7.2.686 [id number] 044 [id number] [facility] 2023-01-23 00:00:00 2023-01-23 00:00:00 Patient Secure Msg Doctor Unassigned, Remlap [facility] 1.2.840.114 350.1.13.10 4.2.7.2.686 [id number] [id number] [facility] 2023-01-23 00:00:00 2023-01-23 00:00:00 Patient Secure Msg Doctor Unassigned, Remlap [facility] 1.2.840.114 350.1.13.10 4.2.7.2.686 [id number] [id number] [facility] 2023-01-18 09:37:00 2023-01-18 11:55:00 Emergency X CHANDRAKANT HERNANDEZ [facility] ERT [id number] [facility] 2023-01-18 09:37:00 2023-01-18 11:55:00 Emergency Chandrakant Hernandez [facility] 1.2.840.114 350.1.13.10 4.2.7.2.686 [id number] [facility] 2022-09-30 00:00:00 2022-09-30 00:00:00 Orders Only Doctor Unassigned, Remlap [facility] 1.2.840.114 350.1.13.10 4.2.7.2.686 [id number] [facility] 2022-08-27 20:38:00 2022-08-28 01:18:00 Emergency X CHANDRAKANT HERNANDEZ [facility] ERT [id number] [facility] 2022-08-27 20:38:00 2022-08-28 01:18:00 Emergency Chandrakant Hernandez [facility] 1..114 350.1.13.10 4.2.7.2.686 [id number] [id number] [facility] 2022-08-23 20:34:00 2022-08-23 22:46:00 Emergency X EARNEST LEPE [facility] ERT [id number] [facility] 2022-08-23 20:34:00 2022-08-23 22:46:00 Emergency Yohanluis a Earnest A [facility] 1.114 350.1.13.10 4.2.7.2.686 [id number] [id number] [facility] 2022-04-19 09:48:10 2022-04-19 23:59:00 Outpatient R TRAN GRACIA EMILY [facility] [id number] [facility] 2022-04-19 09:48:10 2022-04-19 23:59:00 Hospital Encounter Tran Gracia [facility] 1.114 350.1.13.10 4.2.7.2.686 [id number] 800 [id number] [facility] 2022-04-19 09:47:42 2022-04-19 09:47:42 Hospital Encounter Tran Gracia [facility] 1.114 350.1.13.10 4.2.7.2.686 [id number] [facility] 2022-04-11 10:00:00 2022-04-11 10:00:00 Outpatient R CARY CABELLO [facility] [id number] [facility] 2022-04-08 13:30:00 2022-04-08 13:30:00 Outpatient R [facility] [id number] [facility] 2022-04-08 13:30:00 2022-04-08 13:30:00 Outpatient R [facility] [id number] [facility] 2022-04-08 13:30:00 2022-04-08 13:30:00 Outpatient R CARY CABELLO [facility] [id number] [facility] 2022-04-01 00:00:00 2022-04-01 00:00:00 Outpatient TRAN JAMIL EMILY [facility] [id number] [facility] 2022-04-01 00:00:00 2022-04-01 00:00:00 [facility] [id number] 2022-03-15 00:00:00 2022-03-15 00:00:00 Telephone Cary Cabello [facility] TAPERING MACHINE OPERATOR [facility]ERNAL & CHILD [facility] 1..840.114 350.1.13.10 4.2.7.2.686 [id number] [facility] 2022-03-13 10:00:00 2022-03-13 10:00:00 Outpatient CARY JIMÉNEZ [facility] [id number] [facility] 2022-03-13 00:00:00 2022-03-13 00:00:00 Orders Only Doctor Unassigned, Remlap [facility] .840.114 350.1.13.10 4.2.7.2.686 [id number] [facility] 2022-03-13 00:00:00 2022-03-13 00:00:00 Case Management Cary Cabello [facility] TAPERING MACHINE OPERATOR [facility] 1.2.840.114 350.1.13.10 4.2.7.2.686 [id number] 107 [id number] [facility] 2022-03-11 00:00:00 2022-03-11 00:00:00 Orders Only Doctor Unassigned, Remlap [facility] 1.2840.114 350.1.13.10 4.2.7.2.686 [id number] [facility] 2022-03-07 00:00:00 2022-03-07 00:00:00 Patient Secure Msg Doctor Unassigned, Remlap [facility] TAPERING MACHINE OPERATOR [facility] 1.2.840.114 350.1.13.10 4.2.7.2.686 [id number] 107 [id number] [facility] 2022-03-05 13:45:00 2022-03-05 15:29:53 Outpatient TRAN JAMIL EMILY [facility] [id number] [facility] 2022-03-05 13:45:00 2022-03-05 15:29:53 Office Visit Provider, Tran Islas [facility] TAPERING MACHINE OPERATOR [facility] CHILD [facility] 1.2.840.114 350.1.13.10 4.2.7.2.686 [id number] [facility] 2022-03-05 13:45:00 2022-03-05 15:29:53 Outpatient TRAN JAMIL EMILY [facility] [id number] [facility] 2022-03-05 13:45:00 2022-03-05 13:45:00 Outpatient TRAN JAMIL EMILY [facility] [id number] [facility] 2022-03-05 00:00:00 2022-03-05 00:00:00 Orders Only Doctor Unassigned, Remlap [facility] 1.840.114 350.1.13.10 4.2.7.2.686 [id number] [facility] 2021-12-21 20:20:00 2021-12-21 20:20:00 Outpatient R [facility] [id number] [facility] 2021-09-27 11:15:00 2021-09-27 15:02:00 Emergency X CAHPITO PELAYOALA [facility] ERT [id number] [facility] 2021-09-27 11:15:00 2021-09-27 15:02:00 Emergency Angélica Pelayo [facility] 1.0.114 350.1.13.10 4.2.7.2.686 [id number] [facility] 2021-09-27 00:00:00 2021-09-27 00:00:00 Orders Only Doctor Unassigned, Remlap [facility] 1.0.114 350.1.13.10 4.2.7.2.686 [id number] [facility] 2021-05-03 13:05:08 2021-05-03 14:38:12 Office Visit Greer Mendez [facility] TAPERING MACHINE OPERATOR [facility] 1.0.114 350.1.13.10 4.2.7.2.686 [id number] 107 [id number] [facility] 2021-05-03 13:15:00 2021-05-03 13:15:00 Outpatient R GREER MENDEZ [facility] [id number] [facility] 2021-04-03 00:00:00 2021-04-03 00:00:00 Telephone Kitty Clark 1.0.114 350.1.13.10 4.2.7.2.686 [id number] [facility] 2021-03-25 23:08:00 2021-03-25 23:46:00 Emergency Angélica Pelayo G [facility] 1.2.840.114 350.1.13.10 4.2.7.2.686 [id number] [facility] 2021-03-25 23:08:00 2021-03-25 23:46:00 Emergency X ANGÉLICA PELAYO [facility] [id number] [facility] 2021-03-08 00:00:00 2021-03-08 00:00:00 Telephone Greer Mendez [facility] TAPERING MACHINE OPERATOR [facility] 1.2.840.114 350.1.13.10 4.2.7.2.686 [id number] 107 [id number] [facility] 2021-03-02 00:00:00 2021-03-02 00:00:00 Telephone Tran Felix [facility] TAPERING MACHINE OPERATOR [facility] 1.2.840.114 350.1.13.10 4.2.7.2.686 [id number] 107 [id number] [facility] 2021-02-07 13:15:00 2021-02-07 13:15:00 Outpatient R GREER MENDEZ [facility] [id number] [facility] 2021-01-24 00:16:00 2021-01-24 02:29:00 Emergency Lois Centeno [facility] 1.2.840.114 350.1.13.10 4.2.7.2.686 [id number] [id number] [facility] 2021-01-24 00:16:00 2021-01-24 02:29:00 Emergency CentenoLois S [facility] 1.2.840.114 350.1.13.10 4.2.7.2.686 [id number] [id number] 2021-01-24 00:00:00 2021-01-24 00:00:00 Orders Only Doctor Unassigned, Remlap [facility] 1.2.840.114 350.1.13.10 4.2.7.2.686 [id number] [facility] 2021-01-24 00:00:00 2021-01-24 00:00:00 Orders Only Doctor Unassigned, Remlap [facility] 1.2.840.114 350.1.13.10 4.2.7.2.686 [id number] [id number] 2021-01-23 00:00:00 2021-01-23 00:00:00 Orders Only Doctor Unassigned, Remlap [facility] 1.2.840.114 350.1.13.10 4.2.7.2.686 [id number] [id number] [facility] 2021-01-23 00:00:00 2021-01-23 00:00:00 Orders Only Doctor Unassigned, Remlap [facility] 1.2.840.114 350.1.13.10 4.2.7.2.686 [id number] [id number] 2021-01-03 21:27:00 2021-01-03 23:45:00 Emergency Dedra Felix [facility] 1.2.840.114 350.1.13.10 4.2.7.2.686 [id number] [id number] [facility] 2021-01-03 21:27:00 2021-01-03 23:45:00 Emergency Dedra Felix [facility] 1.2.840.114 350.1.13.10 4.2.7.2.686 [id number] [id number] 2021-01-02 14:10:00 2021-01-02 19:43:00 Emergency Lois Centeno [facility] 1.2.840.114 350.1.13.10 4.2.7.2.686 [id number] 084 [id number] [facility] 2021-01-02 14:10:00 2021-01-02 19:43:00 Emergency Centeno Lois Janett [facility] 1.2840.114 350.1.13.10 4.2.7.2.686 [id number] [id number] 2021-01-02 00:00:00 2021-01-02 00:00:00 Orders Only Doctor Unassigned, Remlap [facility] 1.2840.114 350.1.13.10 4.2.7.2.686 [id number] [id number] [facility] 2021-01-02 00:00:00 2021-01-02 00:00:00 Orders Only Doctor Unassigned, Remlap [facility] 1.2840.114 350.1.13.10 4.2.7.2.686 [id number] [id number] 2020-11-20 00:00:00 2020-11-20 00:00:00 Patient Secure Msg Doctor Unassigned, Remlap [facility] 1.840.114 350.1.13.10 4.2.7.2.686 [id number] [facility] 2020-11-18 00:00:00 2020-11-18 00:00:00 Patient Secure Msg Doctor Unassigned, Remlap [facility] 1.2840.114 350.1.13.10 4.2.7.2.686 [id number] [facility] 2020-11-17 14:30:00 2020-11-17 14:30:00 Outpatient GREER PALMER [facility] [id number] [facility] 2020-11-13 00:00:00 2020-11-13 00:00:00 Patient Secure Msg Doctor Unassigned, Remlap [facility] [employer] [facility] 1.2840.114 350.1.13.10 4.2.7.2.686 [id number] [facility] 2020-11-07 14:03:28 2020-11-07 14:54:11 Office Visit Greer Mendez [facility] [employer] 1..840.114 350.1.13.10 4.2.7.2.686 [id number] 107 [id number] [facility] 2020-11-07 14:03:28 2020-11-07 14:54:11 Office Visit Greer Mendez [facility] [employer] [facility] OPERATOR [facility] 1.840.114 350.1.13.10 4.2.7.2.686 [id number] 2020-11-07 14:00:00 2020-11-07 14:00:00 Outpatient R GREER MENDEZ [facility] [id number] [facility] 2020-11-07 14:00:00 2020-11-07 14:00:00 Outpatient R GREER MENDEZ [facility] [id number] [facility] 2020-11-03 00:00:00 2020-11-03 00:00:00 Patient Secure Msg Doctor Unassigned, Remlap [facility] 1..840.114 350.1.13.10 4.2.7.2.686 [id number] 107 [id number] [place] [facility] 10:00:00 2020-11-02 10:00:00 Outpatient R [facility] [id number] [facility] 2020-11-02 10:00:00 2020-11-02 10:00:00 Outpatient R CARY CABELLO [facility] [id number] [facility] 2020-11-02 00:00:00 2020-11-02 00:00:00 Patient Secure Msg Doctor Unassigned, Remlap [facility] 1..114 350.1.13.10 4.2.7.2.686 [id number] [facility] 2020-10-30 00:00:00 2020-10-30 00:00:00 Patient Secure Msg Doctor Unassigned, Remlap [facility] OFF[facility] ONE .114 350.1.13.10 4.2.7.2.686 [id number] [facility] 2020-10-27 00:00:00 2020-10-27 00:00:00 Telephone Tran Felix [facility] TAPERING MACHINE OPERATOR [facility] .114 350.1.13.10 4.2.7.2.686 [id number] [facility] 2020-10-26 15:30:00 2020-10-26 15:30:00 Outpatient R TRAN FELIX [facility] [id number] [facility] 2020-10-26 15:30:00 2020-10-26 14:57:36 Outpatient R TRAN FELIX [facility] [id number] [facility] 2020-10-26 14:29:31 2020-10-26 14:57:36 Office Visit Tran Felix [facility] TAPERING MACHINE OPERATOR [facility] .114 350.1.13.10 4.2.7.2.686 [id number] [facility] 2020-10-26 00:00:00 2020-10-26 00:00:00 Patient Secure Msg Doctor Unassigned, Remlap [facility] ONE .114 350.1.13.10 4.2.7.2.686 [id number] [facility] 2020-10-26 00:00:00 2020-10-26 00:00:00 Orders Only Doctor Unassigned, Remlap [facility] 1..114 350.1.13.10 4.2.7.2.686 [id number] [facility] 2020-10-25 06:30:53 2020-10-25 23:59:00 Hospital Encounter Greer Mendez [facility] 1.0.114 350.1.13.10 4.2.7.2.686 [id number] [facility] 2020-10-25 00:00:00 2020-10-25 23:59:00 Outpatient R GREER MENDEZ [facility] [id number] [facility] 2020-10-25 00:00:00 2020-10-25 23:59:00 Outpatient R GREER MENDEZ [facility] [id number] [facility] 2020-10-25 00:00:00 2020-10-25 00:00:00 Outpatient R GREER MENDEZ [facility] [id number] [facility] 2020-10-20 14:30:00 2020-10-20 14:30:00 Outpatient R GREER MENDEZ [facility] [id number] [facility] 2020-10-20 08:18:28 2020-10-20 09:27:15 Office Visit Greer Mendez [facility] TAPERING MACHINE OPERATOR [facility] 1.840.114 350.1.13.10 4.2.7.2.686 [id number] [facility] 2020-10-20 00:00:00 2020-10-20 00:00:00 Orders Only Doctor Unassigned, Remlap [facility] 1.0.114 350.1.13.10 4.2.7.2.686 [id number] [facility] 2020-10-16 00:00:00 2020-10-16 00:00:00 Telephone Pcp, Patient Does Not Have A [facility] TAPERING MACHINE OPERATOR [facility] 1.2.840.114 350.1.13.10 4.2.7.2.686 [id number] [facility] 2019-11-16 00:00:00 2019-11-16 00:00:00 Telephone Any Henriquez [facility] Office Building One 1.2.840.114 350.1.13.10 4.2.7.2.686 [id number] [facility] 2019-11-16 00:00:00 2019-11-16 00:00:[address] Office [address] One 1.2840.114 350.1.13.10 4.2.7.2.686 [id number] [facility] 2019-11-11 09:53:53 2019-11-11 11:56:02 Office Visit Pob1, Acute Care [facility] Any Henriquez [facility] Office Building One 1.2840.114 350.1.13.10 4.2.7.2.686 [id number] [facility] 2019-11-11 09:20:00 2019-11-11 09:20:00 Outpatient R [facility] [id number] [facility] 2019-10-18 14:00:00 2019-10-18 14:00:00 Outpatient R LAURA MCLEAN [facility] [id number] [facility] Results Test Description Test Time Test Comments Results Resul t Comments Source BCCS-related Documentation 2 21:35:32 Ordered by an unspecified provider. [facility] BCCS-related Documentation 2 21:01:03 Ordered by an unspecified provider. [facility] RADIOLOGY DOCUMENTATION 1 18:34:32 Ordered by an unspecified provider. [facility] BI ULTRASOUND BREAST COMPLETE RIGHT 2023-11-24 8 [...] BI-RADS Category: Right 3 - Probably Benign [facility] BI DIAGNOSTIC TOMOSYNTHESIS BILATERAL 2023-11-24 22:18:07 Examination:BI DIAGNOSTIC TOMOSYNTHESIS BILATERALBI ULTRASOUND BREAST [...] BI-RADS Category: Right 3 - [facility] [id number] 17:56:51 EXAM: XR ABDOMEN ACUTE SERIES HISTORY: [...] is unremarkable. No acute osseous abnormality is detected.[facility] [id number] 17:27:00* Test Item Value Reference Range Interpretation Comme nts POCT PREG (test code = 1605) Negative On board controls acceptable with C Line (test code = 3574) Yes POCT PREG LOT # (test code = 3575) [id number] POCT PREG TEST DATE ( test code = 3576) 11/30/2024 Lab Interpretation (test cod e = 83425-8) Normal [facility] WITH [id number] 04:29:12* Test Item Value Reference Range Interpretation Comme nts WBC (test code = 6690-2) See_Comment [Automated [employer]] The system which generated this result transmitted reference range: 4.30 - 11.10 10*3/?L. The reference range was not used to interpret this result as normal/abnormal. RBC (test code = 789-8) See_Comment [Automated [employer]] The system which generated this result transmitted [...] 34.4 g/dL 31.6-35.1 RDW-SD (test code = 82311-4) 39.6 fL 39.0-49.9 RDW-CV (test code = 788-0) 12.7 % 12.0-15.5 PLT (test code = 777-3) See_Comment [Automated [employer]] The system which generated this result transmitted reference range: 166 - 358 10*3/?L. The reference range was not used to interpret this result as normal/abnormal. MPV (test code = 82393-3) 8.8 fL 9.5-12.9 L NRBC/100 WBC (test code = 2822741921) See_Comment [Automated me ssage] The system which generated this result transmitted reference range: 0.0 - 10.0 /100 WBCs. The reference range was not used to interpret this result as normal/abnormal. NRBC x10^3 (test code = 6710528477) See_Comment [Automated messa ge] The system which generated this result transmitted reference range: 10*3/?L. The reference range was not used to interpret this result as normal/abnormal. GRAN MAT (NEUT) % (test code = 770-8) 66.2 % IMM GRAN % (test code = 2914344498) 0.50 % LYMPH % (test code = 736-9) 27.1 % MONO % (test code = 5905-5) 4.9 % EOS % (test code = 713-8) 0.9 % BASO % (test code = 706-2) 0.4 % GRAN MAT x10^3(ANC) (test code = 3126120707) 5.29 10*3/uL 1.88-7.09 IMM GRAN x10^3 (test code = 9177169059) 0.04 10*3/uL 0.00-0.06 LYMPH x10^3 (test code = 731-0) 2.16 10*3/uL 1.32-3.29 MONO x10^3 (test code = 742-7) 0.39 10*3/uL 0.33-0.92 EOS x10^3 (test code = 711-2) 0.07 10*3/uL 0.03-0.39 BASO x10^3 (test code = 704-7) 0.03 10*3/uL 0.01-0.07 Lab Interpretation (test code = 89454-4) Abnormal [facility]. METABOLIC PANEL ([id number])2022-08-28 04:02:10* Test Item Value Reference Range Interpretation Comme nts NA (test code = 8849177127) 139 mmol/L 135-145 K (test code = 3778761122) 4.1 mmol/L 3.5-5.0 CL (test code = 2229331256) 102 mmol/L 98-108 CO2 TOTAL (test code = 5687651754) 26 mmol/L 23-31 AGAP (test code = 0717643532) 2-16 BUN (test code = 0280567305) 15 mg/dL 7-23 GLUCOSE (test code = 3156992956) 75 mg/dL 70-110 CREATININE (test code = 6246714182) 0.85 mg/dL 0.50-1.04 TOTAL BILI (test code = 8979969534) 0.4 mg/dL 0.1-1.1 CALCIUM (test code = 4826659737) 8.7 mg/dL 8.6-10.6 T PROTEIN (test code = 3732775957) 7.7 g/dL 6.3-8.2 ALBUMIN (test code = 2130214376) 4.6 g/dL 3.5-5.0 ALK PHOS (test code = 1996579098) 62 U/L 34-122 ALTv (test code = 1742-6) 17 U/L 5-35 AST(SGOT) (test code = 6243157754) 21 U/L 13-40 eGFR (test code = 5366131460) mL/min/1.73m2 JADEN (test code = JADEN) Association [...] or urine or abnormalities in imaging tests). [facility]01:49* Test Item Value Reference Range Interpretation Comme nts LIPASE (test code = 3875524041) 82 U/L 0-220 Lab Interpretation (test cod e = 95212-5) [facility] MET[facility]OLIC PANEL ([id number])2022-08-24 04:21:59* Test Item Value Reference Range Interpretation Comme nts NA (test code = 7438235189) 136 mmol/L 135-145 K (test code = 6952921990) 3.9 mmol/L 3.5-5.0 CL (test code = 3897417180) 98 mmol/L 98-108 CO2 TOTAL (test code = 8176851559) 31 mmol/L 23-31 AGAP (test code = 6713460955) 2-16 BUN (test code = 6550859325) 21 mg/dL 7-23 GLUCOSE (test code = 6059565995) 91 mg/dL 70-110 CREATININE (test code = 3031615678) 0.77 mg/dL 0.50-1.04 TOTAL BILI (test code = 4112112625) 0.4 mg/dL 0.1-1.1 CALCIUM (test code = 5775671068) 9.0 mg/dL 8.6-10.6 T PROTEIN (test code = 8764661693) 7.5 g/dL 6.3-8.2 ALBUMIN (test code = 4632475470) 4.3 g/dL 3.5-5.0 ALK PHOS (test code = 6186717866) 70 U/L 34-122 ALTv (test code = 1742-6) 15 U/L 5-35 AST(SGOT) (test code = 4983519157) 19 U/L 13-40 eGFR (test code = 5344491796) mL/min/1.73m2 JADEN (test code = JADEN) Association [...] or urine or abnormalities in imaging tests). [facility] 04:21:59* Test Item Value Reference Range Interpretation Comme nts LIPASE (test code = 4625001799) 66 U/L 0-220 Lab Interpretation (test cod e = 80779-6) [facility] [id number] 03:50:59* Test Item Value Reference Range Interpretation Comme nts WBC (test code = 6690-2) See_Comment [Automated flo[employer]do] The system which generated this result transmitted reference range: 4.30 - 11.10 10*3/?L. The reference range was not used to interpret this result as normal/abnormal. RBC (test code = 789-8) See_Comment [Automated flo[employer]do] The system which generated this result transmitted [...] 33.3 g/dL 31.6-35.1 RDW-SD (test code = 21421-7) 39.7 fL 39.0-49.9 RDW-CV (test code = 788-0) 12.7 % 12.0-15.5 PLT (test code = 777-3) See_Comment [Automated messa ge] The system which generated this result transmitted reference range: 166 - 358 10*3/?L. The reference range was not used to interpret this result as normal/abnormal. MPV (test code = 71078-9) 8.6 fL 9.5-12.9 L NRBC/100 WBC (test code = 7128302511) See_Comment [Automated [employer] ssage] The system which generated this result transmitted reference range: 0.0 - 10.0 /100 WBCs. The reference range was not used to interpret this result as normal/abnormal. NRBC x10^3 (test code = 4551089954) See_Comment [Automated [place] ge] The system which generated this result transmitted reference range: 10*3/?L. The reference range was not used to interpret this result as normal/abnormal. GRAN MAT (NEUT) % (test code = 770-8) 62.8 % IMM GRAN % (test code = 3178898949) 0.30 % LYMPH % (test code = 736-9) 29.7 % MONO % (test code = 5905-5) 6.3 % EOS % (test code = 713-8) 0.5 % BASO % (test code = 706-2) 0.4 % GRAN MAT x10^3(ANC) (test code = 4780579390) 4.85 10*3/uL 1.88-7.09 IMM GRAN x10^3 (test code = 3597667707) 0.00-0.06 LYMPH x10^3 (test code = 731-0) 2.29 10*3/uL 1.32-3.29 MONO x10^3 (test code = 742-7) 0.49 10*3/uL 0.33-0.92 EOS x10^3 (test code = 711-2) 0.04 10*3/uL 0.03-0.39 BASO x10^3 (test code = 704-7) 0.03 10*3/uL 0.01-0.07 Lab Interpretation (test code = 65011-5) Abnormal [facility] [id number] 03:42:00* Test Item Value Reference Range Interpretation Comme nts POCT PREG (test code = 1605) negative On board controls acceptable with C Line (test code = 3574) positive POCT PREG LOT # (test code = 3575) [id number] POCT PREG TEST DATE ( test code = 3576) 11/23/2023 Lab Interpretation (test cod e = 88064-3) Normal [facility] Notes Date/Time Note Provider Source 2024-08-23 15:08:46 Breast problem appointment scheduled for 08-24-24 @ 9am Patient notified. [employer]T [employer]KER Karen Cabello [facility] 2024-06-03 11:27:07 Closing encounter, nothing further needed to do at this time. Crissy Louis [facility] 2024-05-21 10:46:38 Patient colonoscopy was cancelled in [facility] OR location due to OON insurance. Patient no longer has OON insurance and wants to Reschedule. Forwarding the patients case for that OR location. Rach Carcamo [facility] 2024-05-20 13:58:46 Patient calling reschedule colonoscopy. Patient states she has "canceled the out of network insurance" [facility] 2024-05-13 10:01:04 Attempted to reach patient. LVM advising I have been notified case has been cancelled for tomorrow due to insurance, and she should not do her bowel prep today. Nory Fierro RN Nory Fierro RN [facility] 2024-02-05 12:22:47 Elvira called and left a voicemail with call back number in re to scheduling a follow-up appointment with Isra LEE. If patient calls back, please have them call Elvira at [phone]. Elvira Booker RN [facility] 2024-01-27 13:54:00 Elvira called and left a voicemail with call back number in re to scheduling a follow-up appointment with Isra LEE. If patient calls back, please have them call Elvira at [phone]. Elvira Booker RN [facility] 2024-01-16 15:29:34 I left message on patients phone to call me back to schedule. My phone has been acting up all day dropping calls and disconnecting and it's been happening to all the [facility] remote workers having VPN issues with [employer]. If patient reachs the clinic to schedule you can transfer to me or notify me by teams. Rach Carcamo [facility] 2024-01-15 17:32:40 Attempted to contact patient with recommendations from KELLI Coats for callback. Sproutel message also sent with ER warnings per Dr. Fleming's note. PURA LOUIS RN 01/15/2024 5:33 PM Pura Louis RN [facility] 2024-01-15 17:29:[address] Fleming telephone encounter response: I am not available on the for the rescheduled procedure, the day is full. Will have to be during next available Friday, february. If unable to pass a bowel movement for longer than 1 to 2 days, safest thing would be to be evaluated in the emergency room. Jie Fleming MD Pura Louis RN [facility] 2024-01-15 16:20:53 I am not available on the for the rescheduled procedure, the day is full. Will have to be during next available Friday, likely February. If unable to pass a bowel movement for longer than 1 to 2 days, safest thing would be to be evaluated in the emergency room. Jie Fleming MD CRS-COLON & RECTAL SURGERY STAFF [facility] 2024-01-15 13:47:43 Attempted to contact patient with no answer, Voicemail left at this time with clinic phone number and instructed patient to return call. Sproutel message sent at this time. Eunice Diallo RN [facility] 2024-01-15 12:49:10 Images from the original note were not included. I received below message about patient wanting to reschedule procedure. Dr. Fleming could you let me know if I'm able to offer the patient 01/21/24 in [place] or if she needs to be seen in clinic again? Patient message stating unable to pass a bowel movement. Rach Carcamo [facility] 2024-01-13 16:40:51 Lulu Horn is a 43 year old female Pt son calling wanting to reschedule colonoscopy please advise [phone] (home) Gavin Dodson [facility] 2024-01-01 09:46:36 I called the patient in response to her email, in which she sent me copies of her own genetic test results and her sister's genetic test results. Her sister was positive for a pathogenic variant in BRCA2, [id number]. The patient had BRCA1 and BRCA2 only genetic testing through [facility] in 2020 which was negative. This can be considered to be a true negative for the familial BRCA2 variant, and therefore the patient should be managed based on her personal history in regard to breast screening. Additionally, we discussed that since the testing done in 2020 was limited to BRCA1/2, it would be reasonable to do additional testing including Shelton syndrome and other causes of hereditary colorectal and endometrial cancer. The patient stated she is undecided about doing additional testing at this time, and will contact me if she would like to pursue it. All questions were answered and the patient will contact me with additional questions or concerns. Miko Young [facility] 2023-12-25 14:56:13 Called pt, discussed results and poc. Pt advised radiology will call her for F/U appt and wwe due 05/17/24 or after. Pt verbalized understanding Maritza Molina RN 12/25/23 2:59 PM T [facility] 2023-12-25 14:29:00 Orders placed ANGEL Vo 12/25/2023 2:29 PM [facility] 2023-12-25 14:07:54 Routed to provider for future orders for diagnostic breast FU. Maritza Molina RN 12/25/23 2:08 PM [facility] 2023-12-25 14:07:47 Impression: No significant change in previously described right breast asymmetry as detailed above. A right diagnostic mammogram with possible ultrasound (if needed) in 6 months is recommended to demonstrate continued (at least 1 year) stability. These findings and recommendations were discussed with the patient. Recommendation: Short interval follow-up mammogram 6 months - Right Short interval follow-up ultrasound 6 months - Right BI-RADS Category: Right 3 - Probably Benign [facility] 2023-12-18 08:30:28 Pt has been scheduled for follow up. Zeynep Montanez [facility] 2023-12-17 11:17:10 Patient scheduled for 01/14/[address] Fleming for procedure. Please call patient with a 2-week follow-up appt. Rach Carcamo [facility] 2023-12-12 12:32:16 Please ensure this message is forwarded to [facility] once their procedure is scheduled. Dr. Fleming wishes to ensure they have a 2 week follow up appointment scheduled after their procedure. T [facility] 2023-11-25 16:46:12 Called pt, notified of appt for breast imaging follow up. Pt verbalized understanding. Maritza Molina RN 11/25/23 4:46 PM T [facility] 2023-11-19 16:49:01 Pt left prior to receiving discharge paperwork. [facility] 2023-11-19 15:16:28 Pt to ED CO frequency, urgency, constipation, and abdominal pain x 2 days. Denies N/V/D. Denies sick contacts. Hx of fecal incontinence, PID, and kidney infections. Pt given urine cup. T Emerita Burleson RN [facility] 2023-10-28 13:25:15 Pt given printed and verbal discharge instructions regarding Constipation, Influenza, encouraged hydration, 3 Prescriptions provided Discussed ibuprofen and to take with food to avoid GI distress. Pt verbalized understanding of instructions, pt awake alert oriented, resp reg unlabored, skin w/d, color appropriate for race, moves all ext well,pt encouraged to follow up with pcp Advised to seek medical attention for new/prolonged/worsening of symptoms, No adverse reaction to meds given in ER noted upon discharge Awake, alert oriented, resp reg unlabored, skin w/d, pt leaving amb with steady gait, in no apparent distress, [facility] 2023-10-28 11:07:15 Patient with fever, chills, abdominal pain, sneezing, constipation. Hx of bladder infections '[employer]T MAKER Arelis Lugo RN [facility] 2023-10-28 11:00:00 [facility] Emergency Department Note Patient Name: Lulu Horn Date of : 1980 43 year old female Treatment Room: [facility] ED [facility] Primary Care Physician: PATIENT DOES NOT HAVE A PCP Patient Escorted by: Family [5] Mode of Arrival: Personal means [1] EMS Treatment Prior to ED Arrival: Travel and Exposure Screening: Symptoms Does patient have any of these symptoms?: (not recorded) Exposure Screening Has patient had contact with someone with a communicable disease in the last month?: (not recorded) Diseases exposed to:: (not recorded) Is Patient ?: (not recorded) Exposure Date: (not recorded) Chief Complaint: Chief Complaint Patient presents with Constipation Viral Syndrome History of Present Illness: Pt here for 'extremely high fevers' and constipation she has been having mucous stools in the past she has had uti an is unsure if that is related, she has runny nose cough cold congestion significatn other also sick Has global fatigue, nausea, and fevers, Not taking any meds for it No previous surgeries, denies chance of Has runny nose cough cold fever chills and constipation with concerns of mucous in stool and uti Past Medical History/Immunizations: Past Medical History: Diagnosis Date Anxiety 2017 not on meds Chlamydia Depression 2017 Osteoarthritis pt states in her back Pap smear abnormality of cervix 2014 2020 pap wnl Trauma Allergies: Allergies Allergen Reactions Pcn [Penicillins] Hives Past Social History: Tobacco Use Never smoked or used smokeless tobacco. Alcohol Use Yes. Comments: occasional-holidays Drug Use No. Sexual Activity Sexually active; Partners: Male; Control/Protection: None. Comments: Last intecourse: 05/03/2023 Past Surgical History: Past Surgical History: Procedure Laterality Date BREAST RECONSTRUC W OTHR TECHNIQ 2018 COSMETIC SURGERY 2019 [place] butt lift and liposuction Review of Systems: Review of Systems Constitutional: Positive for appetite change, chills, fatigue and fever. HENT: Positive for congestion and rhinorrhea. Respiratory: Positive for cough. Gastrointestinal: Positive for constipation. All other systems reviewed and are negative. Physical Exam: ED Triage Vitals [10/28/23 1108] Weight 60.8 kg (134 lb) Actual or estimated Height 1.6 m (5' 3") BP (!) 148/85 Pulse 106 Resp 22 Temp 36.8 ?C (98.2 ?F) Temp source Oral SpO2 100 % Measured on Room air Physical Exam Vitals and nursing note reviewed. Constitutional: Appearance: She is normal weight. HENT: Head: Normocephalic. Right Ear: External ear normal. Left Ear: External ear normal. Nose: Nose normal. Mouth/Throat: Mouth: Mucous membranes are moist. Eyes: Extraocular Movements: Extraocular movements intact. Pupils: Pupils are equal, round, and reactive to light. Cardiovascular: Rate and Rhythm: Normal rate and regular rhythm. Pulses: Normal pulses. Pulmonary: Effort: Pulmonary effort is normal. Abdominal: General: Abdomen is flat. Palpations: Abdomen is soft. Musculoskeletal: General: No swelling or deformity. Normal range of motion. Cervical back: Normal range of motion. Skin: General: Skin is warm. Capillary Refill: Capillary refill takes less than 2 seconds. Neurological: General: No focal deficit present. Mental Status: She is alert and oriented to person, place, and time. Radiology: No orders to display Lab Results: Lab Results - No data to display EKG: If EKG completed, see Procedure Note. Orders and Treatments: Orders Placed This Encounter Procedures XR ABDOMEN ACUTE SERIES COVID-19 (ID NOW TESTING) RAPID INFLUENZA A/B Urinalysis POCT Test Orders Placed This Encounter Medications ondansetron (ZOFRAN-ODT) disintegrating tablet 8 mg First Provider Eval: ED Events Date/Time Event User Comments 10/28/23 110 Medical Screening Begins AMIRTA BOATENG MD -- 10/28/23 110 First Provider Evaluation AMRITA BOATENG MD -- ED COURSE Diagnosis/Impression as of 10/28/23 1256 Fever and chills Influenza A Other constipation Procedures: Procedures MDM: Medical Decision Making Pt here for 'extremely high fevers' and constipation she has been having mucous stools in the past she has had uti an is unsure if that is related, she has runny nose cough cold congestion significatn other also sick Has global fatigue, nausea, and fevers, Not taking any meds for it No previous surgeries, denies chance of Has runny nose cough cold fever chills and constipation with concerns of mucous in stool and uti Ddx uti constipation bronchitis Pt has no fever here, she has flu a No constipation or evidence of obstruction Meds sent to pharmacy Stable exam stable vitals meds to exam Problems Addressed: Fever and chills: Details: Covid flu ua Influenza A: Details: Tamiflu sent Other constipation: Details: Three view abd and lactulos sent to pharmacy Amount and/or Complexity of Data Reviewed Labs: ordered. Decision-making details documented in ED Course. Details: Flu a positive, not normal ua Radiology: ordered. Details: Normal 3 view abd Risk OTC drugs. Prescription drug management. Flowsheet Documentation: Scoring Tools: No data recorded Disposition/Condition: ED Disposition None Discharge Medications: Patient's Medications No medications on file Follow-up: Electronically signed by: Amrita Boateng MD 10/28/23 1307 [facility] 2023-09-06 18:56:05 Patient called from [facility] by Dr. House and by this RN no response. IE Bazan RN [facility] 2023-09-06 16:10:00 Patient came in with complaints of cough, congestion, and sore throat since 3 days; on and off bilateral low back pain since over a year now and thinks that it's getting worse. IE Elaine RN [facility] 2023-05-12 16:11:43 Formatting of this n ote might be different from the original. Called pt, notified of results and poc. Number provided for radiology. Pt verbalized understanding. Maritza Molina RN 05/12/23 4:11 PM Maritza Molina RN [facility] 2023-05-12 15:45:12 Formatting of this n ote might be different from the original. Orders placed impression: Right asymmetry for which additional imaging recommended. Negative left breast. Recommendation: Tomosynthesis spot compression with possible ultrasound - Right Annual mammographic follow-up - Left ANGEL Vo 05/12/2023 3:46 PM [facility] 2023-05-12 10:26:32 Formatting of this n ote might be different from the original. Lulu Horn is a 42 year old female is requesting a callback. Patient says that she got mammogram results and is needing to get more testing done. Please callback. Thank you. Saira Cosme [facility] 2023-05-09 08:56:01 Formatting of this n ote might be different from the original. Called pt, advised mammogram results not finalized. Pt verbalized understanding. Maritza Molina RN 05/09/23 8:56 AM Maritza Molina RN [facility] 2023-05-08 16:43:31 Formatting of this n ote might be different from the original. Lulu Horn is a 42 year old female Pt requesting Mammogram results Please call [phone] Cathy Magaña [facility]
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
[2025-05-26] MEDS ORDERED: NA CHLORIDE 0.9% 1,000 ML ONE (17:19)
[2025-05-26] MEDS ORDERED: ONDANSETRON 4 MG/2 ML VIAL ONE ×2 (17:19→23:19)
[2025-05-27] MEDS ORDERED: HYDROMORPHONE HCL 0.5 MG/0.5 ML INJ ONE (02:26)
[2025-05-27] MEDS ORDERED: ONDANSETRON 4 MG/2 ML VIAL ONE (02:26)
[2025-05-27] MEDS ORDERED: AZITHROMYCIN 250 MG TAB ONE (02:26)
[2025-05-27] MEDS ORDERED: METRONIDAZOLE 500mg IVPB 0 MG/0 ML BAG IV ONE (02:27)
[2025-05-27] MEDS ORDERED: D5 0.9 NS 1,000 ML IV ONE (02:28)
[2025-05-27 02:40] LABS: Sqamous Epithelial <5 /HPF (None Seen); Urine Culture Reflex Order NOT NEEDED; Urine Microscopic Reflex YN ORDER UMIC
[2025-05-27 02:49] LABS: METHAMPHETAM POSITIVE (NEGATIVE); THC Cannibis NEGATIVE (NEGATIVE)
[2025-05-27 02:50] LABS: Absolute Lymphocytes (CBC) 1.7 K/uL (0.7-4.9); Hematocrit 37.7 % (36.0-45.0); Hemoglobin 13.1 g/dL (12.0-15.0); MCH 29.4 pg (27.0-35.0); MCHC 34.7 g/dL (32.0-36.0); MCV 84.6 fL (80-100); MPV 7.0 fL (7.6-11.3); Nucleated RBC Absolute Count 0.0 (0-0); Nucleated Red Blood Cells % 0.0 % (0-0); RBC Red Blood Cell Count 4.45 M/uL (3.86-4.86); White Blood Count 6.20 thou/uL (4.3-10.9)
[2025-05-27 02:53] LABS: ALT/SGPT 28.0 U/L (13-56); AST/SGOT 15.0 U/L (15-37); Albumin 3.6 g/dL (3.4-5.0); Albumin/Globulin Ratio 0.9 (1.1-1.8); Alkaline Phosphatase 79.0 U/L (45-117); Anion Gap 5.2 mEq/L (5.0-15.0); BUN Blood Urea Nitrogen 10.0 mg/dL (7-18); Globulin 4.2 g/dL (2.3-3.5); Glucose Level 82.0 mg/dL (74-106); Lipase 32.0 U/L (13-75); Potassium 3.2 mEq/L (3.5-5.1)
[2025-05-27] MEDS ORDERED: CEFTRIAXONE 1000 MG/VIAL ONE (04:00)
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
[2025-05-27 07:18] VITALS: O2SAT 100
[2025-05-27 07:20] VITALS: BP 104/70; TEMP 97.1
== END 2025-05-27 06:46 | disposition home or self-care (01) ==
LOC: ER 13:23
DX: T76.21XA Adult sexual abuse, suspected, initial encounter (principal); N30.00 Acute cystitis without hematuria
CPT/HCPCS: 36415; 70450; 71260; 72125; 74177; 80053; 80307; 81001; 81025; 83605; 83690; 85025; 96361; 96374; 96375; 99284; J0696; J1171; J1790; J2405; J7030; J7042; Q9967